=== PATIENT | female | born 1940 | race Caucasian/White ===

== ENCOUNTER 2024-03-10 11:36 | Outpatient (REF) | payer MEDICARE, SELFPAY ==
[2024-03-11 16:17] LABS: Estimated Average Glucose 126 mg/dL
== END 2024-03-10 11:37 | disposition home or self-care (01) ==
LOC: LAB 11:36
PROVIDERS: PCP Family Medicine; Visit Provider Nurse Practitioner Adult Health
DX: R73.09 Other abnormal glucose (principal)
CPT/HCPCS: 36415; 83036

== ENCOUNTER 2024-04-08 10:09 | Outpatient (REF) | payer MEDICARE, SELFPAY ==
[2024-04-08 11:27] LABS: Estimated GFR (African America 39 (>=60 mL/min/1.73m^2); Estimated GFR (Non-African Ame 32 (>=60 mL/min/1.73m^2)
== END 2024-04-08 10:10 | disposition home or self-care (01) ==
LOC: LAB 10:09
PROVIDERS: PCP Family Medicine; Visit Provider Nurse Practitioner Adult Health
DX: R94.4 Abnormal results of kidney function studies (principal)
CPT/HCPCS: 36415; 82565; 84520

== ENCOUNTER 2024-05-27 07:02 | Outpatient (REF) | payer MEDICARE, SELFPAY ==
--- OUTSIDE RECORDS SUMMARY | 2024-05-27 07:05 | XMS_ITS | CCD ---
Author Organization [facility] Care Team Providers Care Family [employer] Consumer [employer] Teacher Name Role Phone JOE, BETTE Unavailable Unavailable JOE, BETTE Unavailable Unavailable Joe, Bette Unavailable Bam Garcia Unavailable MD Bette Diaz Primary Care Provider [phone] MD Bette Diaz Attending Provider Sil Oneill Unavailable OCTAVIO Oneill Attending Provider MD Sondra Boswell Primary Care Provider MD Bette Diaz Attending Provider MD Sondra Boswell Primary Care Provider DO Eliot Moctezuma Emergency Provider MD Magali Galindo Admit Provider [phone] MD Magali Galindo Attending Provider MD Sondra Boswell Primary Care Provider MD Bette Diaz Attending Provider DO Eliot [place] Emergency Provider MD Magali Galindo Admit Provider MD Bette Diaz Other Provider DO Abundio Sauer Attending Provider DO Abundio Sauer Referring Provider [phone] Sondra Nettles Primary Care Pr ovider MD Bette Diaz Attending Provider [phone] MD Bette Diaz Attending Provider Sondra Boswell MD Primary Care Provider Sondra Boswell MD Unavailable [phone] Joe, Bette Admitting Unavailable Joe, Bette Attending Unavailable Sondra Calix Primary Care Un available WasMagali gunn Admitting Unavailable Joe, Bette Consulting Unavailable Abundio Sauer Attending Unavailabl e Joe, Bette Admitting Unavailable Joe, Bette Attending Unavailable Joe, Bette Admitting Unavailable Joe, Bette Attending Unavailable Oneill, Sil Admitting Unavailable Nino, Sil Attending Unavailable Sondra Calix Primary Care Un available Joe, Bette Admitting Unavailable Joe, Bette Attending Unavailable Abundio Sauer Referring Unavailabl e Sondra Calix Primary Care Un available Joe, Bette Admitting Unavailable Joe, Bette Attending Unavailable Sondra Calix Primary Care Un available SONDRA BOSWELL Attending Unavailable ESTRELLITA FISCHER Attending Unavailab DAKOTA Cook Attending Unavailab blanca FISCHER, ESTRELLITA Scherer Attending Unavailab ESTRELLITA Torres Attending Unavailab MD Sondra Patel Primary Care Pr ovider MD Bette Diaz Attending Provider Shannon DO, Stone S Primary Care Provider FABRICIO DICKSON Attending Unavailable SONDRA BOSWELL Referring Unavailable SHANNON, STONE S Primary Care Unavailable PHYSICIAN, UNKNOWN Referring Unavailable SHANNON, STONE S Primary Care Unavailable KELLE LEON Attending Unavailable KELLE LEON Referring Unavailable SHANNON, STONE S Primary Care Unavailable SARAN, KIET Referring Unavailable SHANNON, STONE S Primary Care Unavailable FABRICIO DICKSON Attending Unavailable FABRICIO DICKSON Referring Unavailable STONE ORTEGA S Primary Care Unavailable KELLE LEON Attending Unavailable FABRICIO DICKSON Referring Unavailable STONE ORTEGA S Primary Care Unavailable Allergies Allergy Classification Reported Allergen(s) Allergy Type Date of Onset Reaction(s) Facility [facility] (1 source) [facility] Substance Allergy 4 Itching [facility] Penicillins (antibiotic) (1 source) Penicillins Drug Allergy 4 [facility] (1 source) Iodine (And Iodine Containting Drugs) Drug allergy (disorder) 7 [facility] (9 sources) Penicillins; Translations: [PENICILLINS] Drug allergy (disorder) 7 [facility] (20 sources) Allopurinol; Translations: [ALL[facility]URINOL] [facility] Contrast media Propensity to adverse reactions [facility] [employer] Other (20 sources) Penicillins (Antibiotic) Propensity to adverse reactions Unknown [facility] [employer] Other (15 sources) Latex; Translations: [latex] Allergy to substance 2 Itching [facility] (8 sources) Gadolinium-Cont aining Contrast Medi; Translations: [Gadolinium-Con taining Contrast Medi] Allergy to substance 3 [facility] (16 sources) Iodinated Contrast Media; Translations: [Iodinated Contrast Media] Allergy to substance 7 [facility] (2 sources) Penicillin G Drug Allergy 3 [facility] (1 source) Allopurinol Drug Allergy 4 [facility] (1 source) Penicillins Drug allergy (disorder) 4 [facility] (6 sources) Contrast media; Translations: [DYE] Propensity to adverse reactions to drug 7 [facility] (4 sources) Penicillins Propensity to adverse reactions to drug 7 [facility] Medications Current Medications Medication Drug Class(es) Dates Sig (Normalized) Sig (Original) acetaminophen 500 mg oral tablet (6 sources) take 1 tablet by mouth once daily as needed for pain acetaminophen (TYLENOL) 500 mg tablet Take 1 tablet (500 mg total) by mouth nightly as needed for pain. Active atorvastatin 20 mg oral tablet (20 sources) HMG-CoA Reductase Inhibitor Start: 02-15-2023 End: 08-13-2023 take 20 mg by mouth once daily Atorvastatin Active 20 MG PO Daily May 03, 2023 12:00am bumetanide 2 mg oral tablet (14 sources) Loop Diuretic Start: 05-20-2023 bumetanide (Bumex) 2 MG tablet Start: 05-03-2023 End: 05-06-2023 take 1 tablet by mouth twice daily Bumetanide (Bumex) 1 mg Tablet Discontinued 1 MG PO Twice daily May 03, 2023 12:00am May 06, 2023 1:41pm Start: 04-25-2023 End: 04-10-2024 take 1 tablet by mouth twice daily before mealtime bumetanide (BUMEX) 2 mg tablet Take 1 tablet (2 mg total) by mouth 2 (two) times a day before meals. 60 tablet 2 04/25/2023 04/10/2024 Discontinued take 2 tablets by mo [facility] every twenty-four hours Bumetanide 2 MG 2 tablet Orally Daily Active Calcium 600+D3 600-800 MG-UNIT (20 sources) take 600-800 tablets by mouth twice daily Calcium 600+D3 600-800 MG-UNIT 1 tablet Orally Twice a day Active calcium carbonate 1250 mg / cholecalciferol 200 unt oral tablet (4 sources) Vitamin D take 1 tablet by mouth in the morning, then take 1 tablet by mouth once daily, then take 1 tablet by mouth once at mealtime calcium carbonate-vitamin D3 (OSCAL 500 + D) 500 mg(1,250mg) -200 units per tablet Take 1 tablet by mouth in the morning and 1 tablet at noon and 1 tablet in the evening. Take with meals. Active Calcium Carbonate-Vit D-Min (Calcium 600+D3 Plus Minerals) 600-800 MG-UNIT tablet (2 sources) take 600-800 tablets by mouth once in the morning Calcium Carbonate-Vit D-Min (Calcium 600+D3 Plus Minerals) 600-800 MG-UNIT tablet Take 1 tablet by mouth in the morning and at noon. 0 Active Calcium Carbonate-Vitamin D2 (6 sources) Start: 05-03-2023 take 1 tablet by mouth three times daily Calcium Carbonate-Vitamin D2 Active TAB PO Three times daily May 03, 2023 12:00am Start: 05-03-2023 take 1 tablet by connie th three times daily Calcium Carbonate-Vitamin D2 Active TAB PO Three times daily May 02, 2023 11:00pm Calcium Carbonate-Vitamin D2 (Calcium + Vitamin D) 600 mg calcium- 200 unit Tablet (1 source) Start: 05-03-2023 take 1 tablet by mouth three times daily Calcium Carbonate-Vitamin D2 (Calcium + Vitamin D) 600 mg calcium- 200 unit Tablet Active TAB PO Three times daily May 03, 2023 12:00am chlorpheniramine maleate 4 mg oral tablet (14 sources) Histamine-1 Receptor Antagonist take 1 tablet by mouth every six hours Allergy 4 MG 1 tablet as needed Orally every 6 hrs Active empagliflozin 10 mg oral tablet (20 sources) Sodium-Glucose Cotransporter 2 Inhibitor Start: 05-03-2023 take 1 tablet by mouth once daily Empagliflozin (Jardiance) 10 mg Tablet Active 10 MG PO Daily May 03, 2023 12:00am febuxostat 80 mg oral tablet (20 sources) Xanthine Oxidase Inhibitor Start: 05-03-2023 End: 08-14-2023 take 1 tablet by mouth once daily Febuxostat (Uloric) 80 mg Tablet Active 80 MG PO Daily May 03, 2023 12:00am take 2 tablets by mouth in the m orning febuxostat (ULORIC) 40 mg tablet Take 2 tablets (80 mg total) by mouth in the morning. Active ferrous sulfate 325 mg oral tablet (20 sources) Start: 09-18-2023 End: 05-21-2024 take 1 tablet by mouth once daily Ferrous Sulfate (Iron) 325 mg (65 mg iron) tablet Active 325 MG PO Daily September 18, 2023 12:15pm Start: 05-03-2023 End: 09-18-2023 take 1 tablet by mouth once daily Ferrous Sulfate (Iron) 325 mg (65 mg iron) Tablet Discontinued MG PO Daily May 03, 2023 12:00am September 18, 2023 12:18pm Iron (5 sources) take 1 tablet by mouth once daily Iron 325 (65 Fe) MG 1 tablet Orally Once a day Active melatonin 1 mg oral tablet (20 sources) Start: 05-03-2023 take 1 mg by mouth once daily at bedtime Melatonin Active MG PO Daily at bedtime May 03, 2023 12:00am take 1 tablet by mouth once katya y melatonin 10 mg tablet Take 10 mg by mouth nightly. Active take 1 tablet by mouth once kennedi tonin 5 MG tablet Take 1 tablet by mouth 1 (one) time if needed (insomnia). 0 Active take 2 tablets by mo [facility] once daily at bedtime as needed Melatonin 3 MG 2 tablet at bedtime as needed Orally Once a day Active metoprolol tartrate 25 mg oral tablet (20 sources) beta-Adrenergic Chantelle Start: 05-06-2023 take 25 mg by mouth twice daily Metoprolol Tartrate Active 25 MG PO Twice daily September 18, 2023 12:13pm Start: 05-06-2023 End: 09-18-2023 take 1 dose by mouth twice daily Metoprolol Tartrate Discontinued 12.5 MG PO Twice daily May 06, 2023 12:00am September 18, 2023 12:18pm Further refills per PCP or nephrology. Please cut the pills for the patient. Start: 05-03-2023 End: 05-06-2023 take 50 mg by mouth twice daily Metoprolol Tartrate Di scontinued 50 MG PO Twice daily May 03, 2023 12:00am May 06, 2023 1:41pm take 1 tablet by connie every twelve hours Metoprolol Tartrate 50 MG 1 tablet with food Orally Twice a day Active Multi For Her - (20 sources) Multi For Her - Orally Active Multiple Vitamins-Minerals (Multi For Her) tablet (2 sources) take 1 tablet by mouth in the morning Multiple Vitamins-Minerals (Multi For Her) tablet Take 1 tablet by mouth in the morning. 0 Active Multivitamin preparation (7 sources) Start: 05-03-2023 take 1 tablet by mouth once daily Multivitamin Active 1 TAB PO Daily May 02, 2023 11:00pm Start: 05-03-2023 take 1 tablet by connie th once daily Multivitamin Active 1 TAB PO Daily May 03, 2023 12:00am omeprazole 20 mg delayed release oral capsule (20 sources) Proton Pump Inhibitor Start: 05-20-2023 End: 11-16-2023 take 1 capsule by mouth before mealtime omeprazole (PriLOSEC) [address] capsule Indications: Gastro-esophageal reflux disease without esophagitis Take 1 capsule (20 mg) by mouth in the morning. Take before meals. 90 capsule 1 05/20/2023 11/16/2023 Active Start: 05-03-2023 take 20 mg by mouth once daily Omeprazole Active 20 MG PO Daily May 03, 2023 12:00am Oxygen (4 sources) oxygen Inhale 2 L/min nightly. Active rOPINIRole 3 mg oral tablet (20 sources) Nonergot Dopamine Agonist Start: 05-03-2023 take 3 mg by mouth once daily at bedtime Ropinirole Active 3 MG PO Daily at bedtime May 03, 2023 12:00am administer 1-3 hours before bedtime take 3 tablets by mouth once jared ly rOPINIRole (REQUIP) 1 mg tablet Take 3 tablets (3 mg total) by mouth nightly. Active take 1 tablet by connie th in the morning, then take 1 tablet by mouth in the evening, then take 1 tablet by mouth at bedtime rOPINIRole (Requip) 1 MG tablet Take 1 m g by mouth in the morning and 1 mg in the evening and 1 mg before bedtime. 0 Active 0.25 mg, 0.5 mg dose 1.5 ml semaglutide 1.34 mg/ml pen injector (7 sources) Start: 02-24-2024 inject 0.25 mg by subcutaneous injection every week Semaglutide Active 0.25 MG SUBCUT every week February 24, 2024 12:00am for 4 weeks Rybelsus 7 MG 1 tablet at least 30 minutes before first food, beverage or other oral medicine of the day Orally Once a day Active SITagliptin 25 mg oral tablet (9 sources) Dipeptidyl Peptidase 4 Inhibitor take 1 tablet by mouth every twenty-four hours Januvia 25 MG 1 tablet Orally Once a day Active take 0.5 tablet by mouth once da pippa Januvia 50 MG 1/2 tablets Orally Once a day Active therapeutic multivitamin (THERAGRAN) tablet (4 sources) take 1 tablet by mouth in the morning therapeutic multivitamin (THERAGRAN) tablet Take 1 tablet by mouth in the morning. Active torsemide 100 mg oral tablet (20 sources) Loop Diuretic Start: 02-24-2024 take 100 mg by mouth once daily Torsemide Active 100 MG PO Daily February 24, 2024 12:00am Start: 09-18-2023 End: 02-24-2024 take 100 mg by mouth once daily Torsemide Discontinued 100 MG PO Daily 450 November 12, 2023 5:40pm February 24, 2024 11:40am Start: 05-06-2023 End: 09-18-2023 take 60 mg by mouth once daily Torsemide Discontinued 60 MG PO DAILY@0800 0 May 06, 2023 12:00am September 18, 2023 12:14pm take 5 tablets by mo [facility] every twenty-four hours Torsemide 20 MG 5 tablet Orally daily for 90 days Active take 3 tablets by mo [facility] in the morning torsemide (Demadex) 20 MG tablet Take 3 tablets by mouth in the morning. 0 Active take 4 tablets by mo [facility] every twenty-four hours Torsemide 20 MG 4 tablet Orally daily for 90 days Active take 2 tablets by mo [facility] every twenty-four hours Torsemide 20 MG 2 tablets Orally Once a day for 90 days Active Completed/Discontinued Medications Medication Drug Class(es) Dates Sig (Normalized) Sig (Original) Allergy Pill (7 sources) Start: 05-03-2023 End: 02-24-2024 Allergy Pill Discontinued PO Daily May 03, 2023 12:00am February 24, 2024 11:14am Start: 05-03-2023 Allergy Pill A ctive PO Daily May 02, 2023 11:00pm Start: 05-03-2023 Allergy Pill A ctive PO Daily May 03, 2023 12:00am cetirizine hydrochloride 10 mg oral tablet (10 sources) Histamine-1 Receptor Antagonist End: 05-21-2024 take 1 tablet by mouth in the morning cetirizine (ZyrTEC) 10 mg tablet Take 1 tablet (10 mg total) by mouth in the morning. 05/21/2024 Discontinued (Therapy completed) lisinopril 10 mg oral tablet (20 sources) Angiotensin Converting Enzyme Inhibitor Start: 04-25-2023 End: 04-10-2024 take 10 mg by mouth once daily Lisinopril Discontinued 10 MG PO Daily May 03, 2023 12:00am September 18, 2023 12:16pm take 1 tablet by mouth in the mo rning lisinopril 40 MG tablet Take 1 tablet by mouth in the morning. 0 Active metOLazone 5 mg oral tablet (7 sources) Thiazide-like Diuretic Start: 09-18-2023 End: 02-24-2024 take 5 mg by mouth once daily Metolazone Discontinued 5 MG PO Daily September 18, 2023 12:00am February 24, 2024 11:17am take 1 tablet by conine every twenty-four hours metOLazone 5 MG 1 tablet Orally Once a day for 90 days Active potassium chloride 10 meq extended release oral tablet (20 sources) Start: 09-18-2023 End: 02-24-2024 take 20 mEq by mouth twice daily Potassium Chloride Discontinued 20 MEQ PO Twice daily September 18, 2023 12:16pm February 24, 2024 11:18am Start: 07-10-2022 End: 04-10-2024 take 10 mEq by mouth once daily Potassium Chloride Dis continued 10 MEQ PO Daily May 03, 2023 12:00am September 18, 2023 12:18pm take 2 tablets by mo [facility] every twelve hours Potassium Chloride ER 10 MEQ 2 tablet with food Orally Twice a day for 90 days Active Problems Active Problems Problem Classification Problem Date Documented Date Episodic/Chronic Acute and unspecified renal failure (17 sources) Acute renal failure syndrome; Translations: [Acute kidney failure, unspecified] Onset: 3 05-03-2023 Episodic Anxiety disorders (20 sources) Claustrophobia; Translations: [Claustrophobia] Onset: 1 Resolved: 1 Chronic Chronic kidney disease (20 sources) Chronic kidney disease stage 3; Translations: [Chronic kidney disease, stage 3 (moderate)] Onset: 3 05-06-2023 Chronic Chronic kidney disease (20 sources) Chronic kidney disease; Translations: [Chronic kidney disease, stage III (moderate) N18.30] Onset: 1 Resolved: 2 Chronic ulcer of skin (4 sources) Ulcer of lower extremity; Translations: [Non-pressure chronic ulcer of unspecified part of left lower leg limited to breakdown of skin] Onset: 0 06-29-2020 Chronic Congestive heart failure; nonhypertensive (20 sources) Chronic systolic heart failure; Translations: [Chronic systolic (congestive) heart failure] Onset: 3 Resolved: 4 Chronic Deficiency and other anemia (20 sources) Anemia in chronic kidney disease; Translations: [Anemia in chronic kidney disease] Chronic Deficiency and other anemia (5 sources) Anemia in chronic kidney disease; Translations: [Anemia in chronic kidney disease D63.1] Onset: 1 Resolved: 2 Chronic Deficiency and other anemia (6 sources) Anemia of chronic disease; Translations: [Anemia in other chronic diseases classified elsewhere] Onset: 3 08-01-2023 Chronic Diabetes mellitus with complications (20 sources) Type 2 diabetes mellitus; Translations: [Type 2 diabetes mellitus with diabetic chronic kidney disease] Onset: 7 Resolved: 2 Chronic Diabetes mellitus without complication (1 source) Diabetes mellitus without complication; Translations: [Type 2 diabetes mellitus with diabetic chronic kidney disease] Onset: 4 Disorders of lipid metabolism (18 sources) Hyperlipidemia; Translations: [Hyperlipidemia, unspecified] Onset: 5 05-04-2023 Chronic Esophageal disorders (2 sources) Gastroesophageal reflux disease without esophagitis; Translations: [Gastro-esophageal reflux disease without esophagitis] Onset: 3 11-23-2022 Chronic Essential hypertension (11 sources) Essential hypertension; Translations: [Essential (primary) hypertension] Onset: 7 11-23-2022 Chronic Fluid and electrolyte disorders (12 sources) Hyperkalemia; Translations: [Hypervolemia] Onset: 1 Resolved: 2 Episodic Gout and other crystal arthropathies (20 sources) Gout; Translations: [Gout, unspecified] Onset: 1 Resolved: 2 Chronic Hypertension with complications and secondary hypertension (20 sources) Hypertensive renal disease; Translations: [Hypertensive chronic kidney disease with stage 1 through stage 4 chronic kidney disease, or unspecified chronic kidney disease] Onset: 7 Resolved: 2 Chronic Miscellaneous mental health disorders (2 sources) Primary insomnia; Translations: [Primary insomnia] Onset: 3 11-23-2022 Chronic Nutritional deficiencies (8 sources) Iron deficiency; Translations: [Iron deficiency] Onset: 4 Episodic Osteoarthritis (2 sources) Osteoarthritis of knee; Translations: [Osteoarthritis of knee, unspecified] Onset: 3 11-23-2022 Chronic Other and ill-defined heart disease (6 sources) Diastolic dysfunction; Translations: [Other ill-defined heart diseases] Onset: 3 08-01-2023 Chronic Other connective tissue disease (2 sources) Artificial knee joint present; Translations: [Presence of unspecified artificial knee joint] Onset: 3 11-23-2022 Chronic Other diseases of kidney and ureters (20 sources) Hyperparathyroidism due to renal insufficiency; Translations: [Secondary hyperparathyroidism of renal origin] Onset: 3 11-23-2022 Chronic Other diseases of kidney and ureters (10 sources) Secondary hyperparathyroidism of renal origin; Translations: [Secondary hyperparathyroidism (of renal origin)] Onset: 1 Resolved: 2 Chronic Other diseases of kidney and ureters (3 sources) Secondary hyperparathyroidism; Translations: [Secondary hyperparathyroidism of renal origin] 09-18-2023 Chronic Other diseases of veins and lymphatics (7 sources) Lymphedema; Translations: [Lymphedema, not elsewhere classified] Onset: 0 11-23-2022 Chronic Other diseases of veins and lymphatics (1 source) Lymphedema, not elsewhere classified; Translations: [Lymphedema, not elsewhere classified] Onset: 3 Chronic Other hereditary and degenerative nervous system conditions (2 sources) Restless legs; Translations: [Restless legs syndrome] Onset: 3 11-23-2022 Chronic Other liver diseases (1 source) Elevated liver enzymes level; Translations: [Abnormal levels of other serum enzymes] 04-20-2024 Episodic Other lower respiratory disease (8 sources) Dyspnea; Translations: [Shortness of breath] Onset: 7 04-10-2024 Episodic Other nervous system disorders (2 sources) Chronic pain; Translations: [Other chronic pain] Onset: 3 11-23-2022 Chronic Other nutritional; endocrine; and metabolic disorders (20 sources) Body mass index 40+ - severely obese; Translations: [Body mass index (BMI) 50.0-59.9, adult] Onset: 1 04-10-2024 Chronic Other nutritional; endocrine; and metabolic disorders (2 sources) Body mass index (BMI) 50.0-59.9, adult; Translations: [Body mass index (BMI) 50.0-59.9, adult] Onset: 1 Resolved: 1 Chronic Other nutritional; endocrine; and metabolic disorders (2 sources) Morbid obesity; Translations: [Morbid (severe) obesity due to excess calories] Onset: 3 11-23-2022 Chronic Other screening for suspected conditions (not mental disorders or infectious disease) (9 sources) Raised cardiac enzyme or marker; Translations: [Other specified abnormal findings of blood chemistry] 05-03-2023 Episodic Other skin disorders (1 source) Localized swelling, mass and lump, unspecified; Translations: [Localized swelling, mass and lump, unspecified] Onset: 4 Episodic Rosita-; endo-; and myocarditis; cardiomyopathy (except that caused by tuberculosis or sexually transmitted disease) (4 sources) Heart valve disorder; Translations: [Endocarditis, valve unspecified] Onset: 4 05-21-2024 Chronic Pulmonary heart disease (11 sources) Pulmonary hypertension, unspecified; Translations: [Other chronic pulmonary heart diseases] Onset: 3 08-01-2023 Chronic Residual codes; unclassified (20 sources) Obstructive sleep apnea syndrome; Translations: [Obstructive sleep apnea (adult) (pediatric)] Onset: 7 05-06-2023 Chronic Residual codes; unclassified (20 sources) Sleep apnea; Translations: [Sleep apnea, unspecified] Onset: 4 Chronic Residual codes; unclassified (6 sources) Obstructive sleep apnea (adult) (pediatric); Translations: [Obstructive sleep apnea (adult)(pediatric)] Onset: 1 Resolved: 2 Chronic Residual codes; unclassified (4 sources) Idiopathic sleep related nonobstructive alveolar hypoventilation; Translations: [Idiopathic sleep related non-obstructive alveolar hypoventilation] Onset: 1 Resolved: 2 Chronic Residual codes; unclassified (1 source) Obstructive sleep apnea (adult)(pediatric); Translations: [Obstructive sleep apnea (adult) (pediatric)] Onset: 3 Chronic Residual codes; unclassified (1 source) Idiopathic sleep related non-obstructive alveolar hypoventilation; Translations: [Idiopathic sleep related nonobstructive alveolar hypoventilation] 01-21-2024 Chronic Residual codes; unclassified (9 sources) Localized edema; Translations: [Edema leg R60.0] Onset: 1 Resolved: 2 Episodic Residual codes; unclassified (1 source) Edema, unspecified; Translations: [Edema] 02-24-2024 Episodic Unclassified (1 source) New Patient Onset: 4 Viral infection (3 sources) Herpes zoster; Translations: [Zoster without complications] 09-18-2023 Episodic Past or Other Problems Problem Classification Problem Date Documented Da te Episodic/Chronic Headache; including migraine (2 sources) Headache disorder; Translations: [Other headache syndrome] Onset: 11-23-2022 11-23-2022 Episodic Neoplasms of unspecified nature or uncertain behavior (2 sources) Myelodysplastic syndrome (clinical); Translations: [Myelodysplastic syndrome, unspecified] Onset: 08-05-2015 02-25-2023 Episodic Other connective tissue disease (2 sources) Recurrent falls ; Translations: [Repeated falls] Onset: 11-23-2022 11-23-2022 Episodic Other gastrointestinal disorders (2 sources) Slow transit constipation; Translations: [Slow transit constipation] Onset: 11-23-2022 Resolved: 08-01-2023 08-01-2023 Episodic Other lower respiratory disease (2 sources) Shortness of breath; Translations: [Shortness of breath] Onset: 02-27-2022 Episodic Residual codes; unclassified (2 sources) Localized edema; Translations: [Localized edema] Onset: 11-23-2022 11-23-2022 Episodic Residual codes; unclassified (7 sources) Edema; Translations: [Edema, unspecified] Onset: 01-25-2017 Resolved: 05-22-2021 09-18-2023 Episodic Spondylosis; intervertebral disc disorders; other back problems (6 sources) Spinal stenosis of lumbar region; Translations: [Spinal stenosis, lumbar region without neurogenic claudication] Onset: 08-24-2016 02-25-2023 Episodic Unclassified (6 sources) Body mass index 40+ - severely obese; Translations: [Body mass index (BMI) greater than 50] 05-06-2023 Results Test Name Value Interpretation Reference Range Facility CT ABDOMEN AND PELVIS WO CON Ton 04-22-2024 CT ABDOMEN AND PELVIS WO CONT CT ABDOMEN AND PELVIS WO CONT CT ABDOMEN AND PELVIS WO CONT HISTORY: Localized mass overlying the left ribs, fall 3 weeks ago COMPARISON: None TECHNIQUE: CT images of abdomen and pelvis obtained without the administration of contrast. Lack of IV contrast limits evaluation, especially solid organs. Automated exposure control was utilized. All CT scans at this facility use dose modulation, iterative reconstruction, and/or weight based dosing when appropriate to reduce radiation dose to as low as reasonably achievable. FINDINGS: Suboptimal evaluation of the solid organs, vessels, and lymph nodes in the absence of IV contrast. LOWER CHEST: Lung bases are clear. Refer to separately dictated CT chest. LIVER AND BILIARY: Lobulated hypoattenuating lesion within the right hepatic lobe which measures less than simple fluid is indeterminate. Somewhat nodular hepatic contour (particularly involving the right hepatic lobe, nonspecific. ) Surgically absent gallbladder with clips in the gallbladder fossa. PANCREAS: Unremarkable SPLEEN: Unremarkable ADRENALS: Unremarkable KIDNEYS, URETERS, AND BLADDER: No renal mass or lesion given noncontrast technique. No collecting system dilatation. No renal calculi.. Ureters are unremarkable. Suboptimal assessment of bladder given the degree of distention.. GI TRACT AND PERITONEUM: Surgically absent appendix. Terminal ileum is unremarkable appearing. There is no evidence of bowel obstruction. No pericolonic fat stranding or free intraperitoneal gas. Small hiatal hernia. VASCULATURE: Unremarkable given noncontrast technique. LYMPH NODES: No enlarged lymph nodes by size criteria. REPRODUCTIVE ORGANS: Unremarkable MUSCULOSKELETAL: lumbar fusion hardware without acute abnormality. IMPRESSION: * There is no definite mass/lesion underlying the BB corresponding to site of palpable concern with small possible subcutaneous region of edema or contusion suggested.. * Lobulated hypoattenuating lesion in the right hepatic lobe with some degree of fat attenuation. This remains indeterminate given superimposed nodular hepatic contour (suspicious for underlying diffuse hepatocellular disease). Recommend clinical and laboratory correlation with consideration for follow-up MR abdomen with and without contrast for further characterization. Approved by Resident Mata Jackson DO on 04/22/2024 10:11 AM IAnish MD have personally reviewed the image(s) and agree with and/or edited the report Finalized by Anish Mercado MD on 04/22/2024 10:24 AM Normal [facility] CT CHEST WO CONTon CT CHEST WO CONT CT CHEST WO CONT History: Left chest wall mass after trauma Technique: Contiguous axial images through the thorax were obtained without the administration of intravenous contrast material. The study was performed following placement of an opaque marker over the palpable lump in the left chest wall. Automated exposure control was utilized. Computer aided detection for pulmonary nodules was performed utilizing [employer] software. Comparison: None Findings: There is mild induration of the subcutaneous fat in the area of palpable lump described clinically most like representing soft tissue contusion. No cystic or solid masses are identified. No abnormal fluid collections are seen. There is no evidence for an acute osseous abnormality. No associated rib fractures are seen. No hilar or mediastinal masses or adenopathy are seen. Coronary artery calcic lesions are noted. The lung buchanan are clear for an active process. No pleural or parenchymal abnormalities are identified. Limited images of the upper abdomen are unremarkable. A hypodense lesion within the posterior aspect of the right lobe of liver cannot be fully evaluated without intravenous contrast, however has densities consistent that of a hepatic cyst. Impression: * Minimal induration of the subcutaneous fat in the area of palpable lump in the left lateral chest wall, demarcated by an opaque marker. This is most consistent with minimal soft tissue contusion. No hematomas or soft tissue masses are identified. * Otherwise normal CT thorax. All CT scans at this facility use dose modulation, iterative reconstruction, and/or weight based dosing when appropriate to reduce radiation dose to as low as reasonably achievable. Finalized by Bam Damon MD on 04/22/2024 11:49 AM Normal [facility] COMPLETE BLOOD COUNTon 04-16 Erythrocyte distribution width (RBC) [Ratio] 14.7 % Normal 11.5-15.0 [facility] Comment on above: Performed By: #### C BC, CMP, 29668-6 #### [facility] ([id number]) [address], [address] [place] [address] Hematocrit (Bld) [Volume fraction] 38.0 % Normal 35-47 [facility] Comment on above: Performed By: #### Wesley CRAWFORD, CMP, 58135-3 #### [facility] ([id number]) [address], [address] [place] [address] Hemoglobin (Bld) [Mass/Vol] 12.7 g/dL Normal 11.7-15.5 [facility] Comment on above: Performed By: #### Wesley CRAWFORD CMP, 39135-3 #### [facility] ([id number]) [address], [address] [place] [address] MCH (RBC) [Entitic mass] 32.7 pg Normal 27-34 [facility] Comment on above: Performed By: #### Wesley CRAWFORD CMP, 19826-9 #### [facility] ([id number]) [address], [address] [place] [address] MCHC (RBC) [Mass/Vol] 33.5 g/dL Normal 32-36 [facility] Comment on above: Performed By: #### Wesley CRAWFORD CMP, 95473-7 #### [facility] ([id number]) [address], [address] [place] [address] MCV (RBC) [Entitic vol] 98 fL Normal 80-100 [facility] Comment on above: Performed By: #### Wesley CRAWFORD, CMP, 93262-5 #### [facility] ([id number]) [address] [address] [place] [address] Platelet mean volume (Bld) [Entitic vol] 9.0 fL Normal 7-12 [facility] Comment on above: Performed By: #### Wesley CRAWFORD CMP, 71556-8 #### [facility] ([id number]) [address], [address] [place] [address] Platelets (Bld) [#/Vol] 231 10*3/uL Normal 150-450 [facility] Comment on above: Performed By: #### Wesley CRAWFORD, CMP, 38282-9 #### [facility] ([id number]) [address], [address] [place] [address] RBC COUNT 3.90 X10E12/L Normal 3.80-5.20 [facility] Comment on above: Performed By: #### Wesley CRAWFORD, CMP, 16433-0 #### [facility] ([id number]) [address], [facility] [address] [place] [address] WBC (Bld) [#/Vol] 7.1 10*3/uL Normal 4.0-11.0 [facility] Comment on above: Performed By: #### Wesley CRAWFORD CMP, 20443-6 #### [facility] ([id number]) [address], [address] [place] [address] COMPREHENSIVE METABOLIC PANE Yuan 04-16-2024 Albumin [Mass/Vol] 3.8 g/dL Normal 3.2-5.3 [facility] Comment on above: Performed By: #### Wesley CRAWFORD, CMP, 08341-3 #### [facility] ([id number]) [address], [address] [place] [address] ALP [Catalytic activity/Vol] 279 U/L High 39-130 [facility] Comment on above: Performed By: #### Wesley CRAWFORD, CMP, 61565-0 #### [facility] ([id number]) [address], [address] [place] [address] ALT [Catalytic activity/Vol] 28 U/L Normal 0-31 [facility] Comment on above: Performed By: #### Wesley BC, CMP, 90172-8 #### [facility] ([id number]) [address], [address] [place] [address] Anion gap [Moles/Vol] 12 mmol/L Normal 5-15 [facility] Comment on above: Performed By: #### Wesley CRAWFORD CMP, 56138-4 #### [facility] ([id number]) [address], [address] [place] [address] AST [Catalytic activity/Vol] 24 U/L Normal 0-41 [facility] Comment on above: Performed By: #### Wesley CRAWFORD CMP, 30697-9 #### [facility] ([id number]) [address], [address] [place] [address] Bilirubin [Mass/Vol] 0.9 mg/dL Normal 0.3-1.2 [facility] Comment on above: Performed By: #### Wesley CRAWFORD CMP, 59575-5 #### [facility] ([id number]) [address], [address] [place] [address] Calcium [Mass/Vol] 9.2 mg/dL Normal 8.5-10.5 [facility] Comment on above: Performed By: #### Wesley CRAWFORD CMP, 01298-6 #### [facility] ([id number]) [address], [address] [place] [address] Chloride [Moles/Vol] 100 mmol/L Normal 98-109 [facility] Comment on above: Performed By: #### Wesley CRAWFORD CMP, 77003-2 #### [facility] ([id number]) [address], [address] [place] [address] CO2 [Moles/Vol] 26 mmol/L Normal 22-32 [facility] Comment on above: Performed By: #### Wesley CRAWFORD CMP, 60338-8 #### [facility] ([id number]) [address], [address] [place] [address] Creatinine [Mass/Vol] 1.53 mg/dL High 0.40-1.00 [facility] Comment on above: Result Comment: METH OD TRACEABLE TO IDMS STANDARD Performed By: #### Wesley CRAWFORD CMP, 50993-4 #### [facility] ([id number]) [address], [address] [place] [address] GFR/1.73 sq M.predicted among non-blacks MDRD (S/P/Bld) [Vol rate/Area] 34 mL/min/{1.73_m2} Low >59 [facility] Comment on above: Result Comment: Reported eGFR is based on the CKD-EPI 2020 equation that does not use a race coefficient. Performed By: #### Wesley CRAWFORD CMP, 33338-0 #### [facility] ([id number]) [address], [address] [place] [address] Glucose [Mass/Vol] 155 mg/dL High 65-99 [facility] Comment on above: Performed By: #### Wesley CRAWFORD CMP, 64923-1 #### [facility] ([id number]) [address], [address] [place] [address] Potassium [Moles/Vol] 3.5 mmol/L Normal 3.5-5.0 [facility] Comment on above: Performed By: #### Wesley CRAWFORD CMP, 29863-6 #### [facility] ([id number]) [address], [address] [place] [address] Protein [Mass/Vol] 7.3 g/dL Normal 6.0-8.0 [facility] Comment on above: Performed By: #### Wesley CRAWFORD CMP, 30812-7 #### [facility] ([id number]) [address] [address] [place] [address] Sodium [Moles/Vol] 138 mmol/L Normal 134-146 [facility] Comment on above: Performed By: #### Wesley CRAWFORD CMP, 80581-2 #### [facility] ([id number]) [address], [address] [place] [address] Urea nitrogen [Mass/Vol] 30 mg/dL High 5-27 [facility] Comment on above: Performed By: #### Wesley CRAWFORD CMP, 70003-7 #### [facility] ([id number]) [address], [address] [place] [address] Lipid 1996 panelon 4 Cholesterol [Mass/Vol] 124 mg/dL Low 150-200 [facility] Comment on above: Performed By: #### Wesley CRAWFORD CMP, 98166-5 #### [facility] ([id number]) [address], [facility] [address] [place] [address] Cholesterol in HDL [Mass/Vol] 59 mg/dL Normal >39 [facility] Comment on above: Result Comment: HDL <40 mg/dL - High Risk HDL > or = 40mg/dL- Desirable HDL >60 mg/dL - Negative Risk Performed By: #### Wesley CRAWFORD, ALEXANDER, 39675-9 #### [facility] ([id number]) [address], [address] [place] [address] Cholesterol in LDL [Mass/Vol] 40 mg/dL Normal <130 [facility] Comment on above: Result Comment: LDL <100 mg/dL - Desirable LDL >160 mg/dL - High Risk Performed By: #### Wesley CRAWFORD, CMP, 37652-1 #### [facility] ([id number]) [address], [address] [place] [address] Cholesterol in VLDL [Mass/Vol] 25 mg/dL Normal 0-30 [facility] Comment on above: Performed By: #### Wesley CRAWFORD, CMP, 06180-0 #### [facility] ([id number]) [address], [address] [place] [address] CHOLESTEROL:HDL 2.1 Normal 1.0-5.0 [facility] Comment on above: Performed By: #### C BC, CMP, 51674-5 #### [facility] ([id number]) [address], [address] [place] [address] Triglyceride [Mass/Vol] 126 mg/dL Normal 27-150 [facility] Comment on above: Performed By: #### C BC, CMP, 24692-4 #### [facility] ([id number]) [address], [address] [place] [address] POCT EKGon 04-10-2024 [facility] Albumin [Mass/volume] in Ser um or Plasma by Bromocresol green (BCG) dye binding methoOrdered By: Bette Diaz on 01-14-2024 Albumin BCG dye [Mass/Vol] 3.7 g/dL 3.5-5.7 [facility] Calcium [Mass/volume] in Ser um or PlasmaOrdered By: Bette Diaz on 01-14-2024 Calcium [Mass/Vol] 8.7 mg/dL 8.6-10.3 [facility] Carbon dioxide, total [Moles /volume] in Serum or PlasmaOrdered By: Bette Diaz on 01-14-2024 CO2 [Moles/Vol] 28.2 mmol/L 21.0-31.0 [facility] Chloride [Moles/volume] in S ganesh or PlasmaOrdered By: Bette Diaz on 01-14-2024 Chloride [Moles/Vol] 102 mmol/L 98-107 [facility] Creatinine [Mass/volume] in Serum or PlasmaOrdered By: Bette Diaz on 01-14-2024 Creatinine [Mass/Vol] 1.63 mg/dL High 0.60-1.20 [facility] Erythrocyte distribution wid th Auto (RBC) [Ratio]Ordered By: Bette Diaz on 01-14-2024 Erythrocyte distribution width (RBC) [Ratio] 14.7 % 11.9-15.3 [facility] Glucose [Mass/volume] in Ser um or PlasmaOrdered By: Bette Diaz on 01-14-2024 Glucose [Mass/Vol] 125 mg/dL High 70-100 [facility] Comment on above: ADA recommended refe rence rangeRandom Glucose Reference Range is dependent on time and content of last meal. Glucose of more than 200 mg/dL in a nonstressed, ambulatory subject supports the diagnosis of Diabetes Mellitus. Hematocrit Auto (Bld) [Volum e fraction]Ordered By: Bette Diaz on 01-14-2024 Hematocrit (Bld) [Volume fraction] 33.9 % Low 34.0-46.4 [facility] Hemoglobin [Mass/volume] in BloodOrdered By: Bette Diaz on 01-14-2024 Hemoglobin (Bld) [Mass/Vol] 11.4 g/dL Low 11.8-15.4 [facility] Leukocytes [#/volume] correc lana for nucleated erythrocytes in Blood by Automated counOrdered By: Bette Diaz on 01-14-2024 WBC corrected for nucl RBC Auto (Bld) [#/Vol] 6.5 10*3/uL 3.8-11.6 [facility] MCH Auto (RBC) [Entitic mass ]Ordered By: Bette Diaz on 01-14-2024 MCH (RBC) [Entitic mass] 33.1 pg 24.7-34.3 [facility] MCHC Auto (RBC) [Mass/Vol]Or dered By: Bette Diaz on 01-14-2024 MCHC (RBC) [Mass/Vol] 33.6 g/dL 32.0-35.0 [facility] MCV Auto (RBC) [Entitic vol] Ordered By: Bette Diaz on 01-14-2024 MCV (RBC) [Entitic vol] 98.5 fL 80-100 [facility] Magnesium [Mass/volume] in S ganesh or PlasmaOrdered By: Bette Diaz on 01-14-2024 Magnesium [Mass/Vol] 2.0 mg/dL 1.9-2.7 [facility] No Panel InformationOrdered By: Bette Diaz on 01-14-2024 Estimated GFR (CKD-EPI) 31.295 mL/Min [facility] Creatinine Clearance (Chem N/A [facility] Parathyrin.intact [Mass/volu me] in Serum or PlasmaOrdered By: Bette Diaz on 01-14-2024 Parathyrin.intact [Mass/Vol] 237.4 pg/mL High 12-88 [facility] Phosphate [Mass/volume] in S ganesh or PlasmaOrdered By: Bette Diaz on 01-14-2024 Phosphate [Mass/Vol] 3.6 mg/dL 2.5-4.5 [facility] Platelet mean volume Auto (B ld) [Entitic vol]Ordered By: Bette Diaz on 01-14-2024 Platelet mean volume (Bld) [Entitic vol] 8.2 fL 6.3-10.7 [facility] Platelets Auto (Bld) [#/Vol] Ordered By: Bette Diaz on 01-14-2024 Platelets (Bld) [#/Vol] 227 10*3/uL 150-450 [facility] Potassium [Moles/volume] in Serum or PlasmaOrdered By: Bette Diaz on 01-14-2024 Potassium [Moles/Vol] 3.7 mmol/L 3.5-5.1 [facility] RBC Auto (Bld) [#/Vol]Ordere d By: Bette Diaz on 01-14-2024 RBC (Bld) [#/Vol] 3.44 10*6/uL Low 3.60-5.00 [facility] Serum or plasma anion gap de terminationOrdered By: Bette Diaz on 01-14-2024 Anion gap [Moles/Vol] 12.5 mmol/L 6.0-15.0 [facility] Sodium [Moles/volume] in Ser um or PlasmaOrdered By: Bette Diaz on 01-14-2024 Sodium [Moles/Vol] 139 mmol/L 136-145 [facility] Urate [Mass/volume] in Serum or PlasmaOrdered By: Bette Diaz on 01-14-2024 Urate [Mass/Vol] 7.2 mg/dL High 2.3-6.6 [facility] Urea nitrogen [Mass/volume] in Serum or PlasmaOrdered By: Bette Diaz on 01-14-2024 Urea nitrogen [Mass/Vol] 24 mg/dL 7-25 [facility] Vitamin D+Metabolites [Mass/ volume] in Serum or PlasmaOrdered By: Bette Diaz on 01-14-2024 Vitamin D+Metabolites [Mass/Vol] 38.4 ng/mL 30-100 [facility] Comment on above: VITAMIN D STATUS 25( [place])VITAMIN D RANGE (ng/mL) Deficient <20 Insufficient 20 to <30Sufficient 30 to 100Reference: Kristy MF,Sarah MOORE, Toshia CHRISTINE, et al. Evaluation,treatment, and prevention of vitamin D deficiency; an Endocrine Society clinical practice guideline. JCEM. 2010; 96(7):1911-30. Magnesiumon 09-11-2023 Magnesium [Mass/Vol] 2.3 mg/dL Normal 1.9-2.7 [facility] Comment on above: Order Comment: Reaso n for Exam Chronic kidney disease, stage III (moderate);Hypertensive ch Result Comment: PERF ORMED BY: [place] [address] PATHOLOGIST [employer] KELSY GROSS M.D. Performed By: #### H S TROP, CBC, BMP, BNP, PT, PTT #### [facility] [address] Renal Function Panelon 09-10 Albumin [Mass/Vol] 4.1 g/dL Normal 3.5-5.7 [facility] Comment on above: Order Comment: Reaso n for Exam Chronic kidney disease, stage III (moderate);Hypertensive ch Performed By: #### H S TROP, CBC, BMP, BNP, PT, PTT #### [facility] [address] [place], [place] [id number] [facility] Anion gap [Moles/Vol] 13.8 mmol/L Normal 6.0-15.0 [facility] Comment on above: Order Comment: Reaso n for Exam Chronic kidney disease, stage III (moderate);Hypertensive ch Performed By: #### H S TROP, CBC, BMP, BNP, PT, PTT #### [facility] [address] Calcium [Mass/Vol] 9.6 mg/dL Normal 8.6-10.3 [facility] Comment on above: Order Comment: Reaso n for Exam Chronic kidney disease, stage III (moderate);Hypertensive ch Performed By: #### H S TROP, CBC, BMP, BNP, PT, PTT #### [facility] [address] Chloride [Moles/Vol] 99 mmol/L Normal 98-107 [facility] Comment on above: Order Comment: Reaso n for Exam Chronic kidney disease, stage III (moderate);Hypertensive ch Performed By: #### H S TROP, CBC, BMP, BNP, PT, PTT #### [facility] [address] CO2 [Moles/Vol] 28.8 mmol/L Normal 21.0-31.0 [facility] Comment on above: Order Comment: Reaso n for Exam Chronic kidney disease, stage III (moderate);Hypertensive ch Performed By: #### H S TROP, CBC, BMP, BNP, PT, PTT #### [facility] [address] [place] [id number] [facility] Creatinine [Mass/Vol] 1.67 mg/dL High 0.60-1.20 [facility] Comment on above: Order Comment: Reaso n for Exam Chronic kidney disease, stage III (moderate);Hypertensive ch Performed By: #### H S TROP, CBC, BMP, BNP, PT, PTT #### [facility] [address] [place] [id number] [place] GFR/1.73 sq M.predicted MDRD (S/P/Bld) [Vol rate/Area] 30.399 mL/min/{1.73_m2} Normal [facility] Comment on above: Order Comment: Reaso n for Exam Chronic kidney disease, stage III (moderate);Hypertensive ch Performed By: #### H S TROP, CBC, BMP, BNP, PT, PTT #### [facility] [address] [place] [address] [place] Glucose [Mass/Vol] 188 mg/dL High 70-100 [facility] Comment on above: Order Comment: Reaso n for Exam Chronic kidney disease, stage III (moderate);Hypertensive ch Result Comment: [facility] Glucose Reference Range is dependent on time and content of last meal. Glucose of more than 200 mg/dL in a nonstressed, ambulatory subject supports the diagnosis of Diabetes Mellitus. ADA recommended reference range Performed By: #### H S TROP, CBC, BMP, BNP, PT, PTT #### [facility] [address] Phosphate [Mass/Vol] 4.0 mg/dL Normal 2.5-4.5 [facility] Comment on above: Order Comment: Reaso n for Exam Chronic kidney disease, stage III (moderate);Hypertensive ch Performed By: #### H S TROP, CBC, BMP, BNP, PT, PTT #### [facility] [address] Potassium [Moles/Vol] 3.6 mmol/L Normal 3.5-5.1 [facility] Comment on above: Order Comment: Reaso n for Exam Chronic kidney disease, stage III (moderate);Hypertensive ch Performed By: #### H S TROP, CBC, BMP, BNP, PT, PTT #### [facility] [address] [place] [address] [place] Sodium [Moles/Vol] 138 mmol/L Normal 136-145 [facility] Comment on above: Order Comment: Reaso n for Exam Chronic kidney disease, stage III (moderate);Hypertensive ch Performed By: #### H S TROP, CBC, BMP, BNP, PT, PTT #### [facility] [address] [place] [address] [place] Urea nitrogen [Mass/Vol] 81 mg/dL High 7-25 [facility] Comment on above: Order Comment: Reaso n for Exam Chronic kidney disease, stage III (moderate);Hypertensive ch Performed By: #### H S TROP, CBC, BMP, BNP, PT, PTT #### [facility] [address] Albumin [Mass/volume] in Ser um or Plasma by Bromocresol green (BCG) dye binding methoOrdered By: Bette Diaz on 08-12-2023 Albumin BCG dye [Mass/Vol] 4.2 g/dL 3.5-5.7 [facility] Calcium [Mass/volume] in Ser um or PlasmaOrdered By: Bette Diaz on 08-12-2023 Calcium [Mass/Vol] 9.5 mg/dL 8.6-10.3 [facility] Carbon dioxide, total [Moles /volume] in Serum or PlasmaOrdered By: Bette Diaz on 08-12-2023 CO2 [Moles/Vol] 27.1 mmol/L 21.0-31.0 [facility] Chloride [Moles/volume] in S ganesh or PlasmaOrdered By: Bette Diaz on 08-12-2023 Chloride [Moles/Vol] 98 mmol/L 98-107 [facility] Creatinine [Mass/volume] in Serum or PlasmaOrdered By: Bette Diaz on 08-12-2023 Creatinine [Mass/Vol] 1.76 mg/dL 0.60-1.20 [facility] Glucose [Mass/volume] in Ser um or PlasmaOrdered By: Bette Diaz on 08-12-2023 Glucose [Mass/Vol] 175 mg/dL 70-100 [facility] Comment on above: ADA recommended refe rence rangeRandom Glucose Reference Range is dependent on time and content of last meal. Glucose of more than 200 mg/dL in a nonstressed, ambulatory subject supports the diagnosis of Diabetes Mellitus. Magnesiumon 08-12-2023 Magnesium [Mass/Vol] 2.0 mg/dL Normal 1.9-2.7 [facility] Comment on above: Order Comment: Reaso n for Exam Chronic kidney disease, stage III (moderate);Hypertensive ch Result Comment: PERF ORMED BY: [facility] [address] [place] [address] PATHOLOGIST [employer] KELSY GROSS M.D. Performed By: #### H S TROP, CBC, BMP, BNP, PT, PTT #### [facility] [address] Magnesium [Mass/volume] in S ganesh or PlasmaOrdered By: Bette Diaz on 08-12-2023 Magnesium [Mass/Vol] 2.0 mg/dL 1.9-2.7 [facility] No Panel InformationOrdered By: Bette Diaz on 08-12-2023 Estimated GFR (CKD-EPI) 28.542 mL/Min [facility] Creatinine Clearance (Chem N/A [facility] Phosphate [Mass/volume] in S ganesh or PlasmaOrdered By: Bette Diaz on 08-12-2023 Phosphate [Mass/Vol] 4.0 mg/dL 2.5-4.5 [facility] Potassium [Moles/volume] in Serum or PlasmaOrdered By: Bette Diaz on 08-12-2023 Potassium [Moles/Vol] 3.5 mmol/L 3.5-5.1 [facility] Renal Function Panelon 08-12 Albumin [Mass/Vol] 4.2 g/dL Normal 3.5-5.7 [facility] Comment on above: Order Comment: Reaso n for Exam Chronic kidney disease, stage III (moderate);Hypertensive ch Performed By: #### H S TROP, CBC, BMP, BNP, PT, PTT #### [facility] [address] Anion gap [Moles/Vol] 17.4 mmol/L High 6.0-15.0 [facility] Comment on above: Order Comment: Reaso n for Exam Chronic kidney disease, stage III (moderate);Hypertensive ch Performed By: #### H S TROP, CBC, BMP, BNP, PT, PTT #### [facility] [address] Calcium [Mass/Vol] 9.5 mg/dL Normal 8.6-10.3 [facility] Comment on above: Order Comment: Reaso n for Exam Chronic kidney disease, stage III (moderate);Hypertensive ch Performed By: #### H S TROP, CBC, BMP, BNP, PT, PTT #### [facility] [address] [place] [id number] [place] Chloride [Moles/Vol] 98 mmol/L Normal 98-107 [facility] Comment on above: Order Comment: Reaso n for Exam Chronic kidney disease, stage III (moderate);Hypertensive ch Performed By: #### H S TROP, CBC, BMP, BNP, PT, PTT #### [facility] [address] [place] [id number] [place] CO2 [Moles/Vol] 27.1 mmol/L Normal 21.0-31.0 [facility] Comment on above: Order Comment: Reaso n for Exam Chronic kidney disease, stage III (moderate);Hypertensive ch Performed By: #### H S TROP, CBC, BMP, BNP, PT, PTT #### [facility] [address] [place] [address] [place] Creatinine [Mass/Vol] 1.76 mg/dL High 0.60-1.20 [facility] Comment on above: Order Comment: Reaso n for Exam Chronic kidney disease, stage III (moderate);Hypertensive ch Performed By: #### H S TROP, CBC, BMP, BNP, PT, PTT #### [facility] [address] [place] [id number] [place] GFR/1.73 sq M.predicted MDRD (S/P/Bld) [Vol rate/Area] 28.542 mL/min/{1.73_m2} Normal [facility] Comment on above: Order Comment: Reaso n for Exam Chronic kidney disease, stage III (moderate);Hypertensive ch Performed By: #### H S TROP, CBC, BMP, BNP, PT, PTT #### [facility] [address] [place] [id number] [place] Glucose [Mass/Vol] 175 mg/dL High 70-100 [facility] Comment on above: Order Comment: Reaso n for Exam Chronic kidney disease, stage III (moderate);Hypertensive ch Result Comment: [place] Glucose Reference Range is dependent on time and content of last meal. Glucose of more than 200 mg/dL in a nonstressed, ambulatory subject supports the diagnosis of Diabetes Mellitus. ADA recommended reference range Performed By: #### H S TROP, CBC, BMP, BNP, PT, PTT #### [facility] [address] Phosphate [Mass/Vol] 4.0 mg/dL Normal 2.5-4.5 [facility] Comment on above: Order Comment: Reaso n for Exam Chronic kidney disease, stage III (moderate);Hypertensive ch Performed By: #### H S TROP, CBC, BMP, BNP, PT, PTT #### [facility] [address] Potassium [Moles/Vol] 3.5 mmol/L Normal 3.5-5.1 [facility] Comment on above: Order Comment: Reaso n for Exam Chronic kidney disease, stage III (moderate);Hypertensive ch Performed By: #### H S TROP, CBC, BMP, BNP, PT, PTT #### [facility] [address] Sodium [Moles/Vol] 139 mmol/L Normal 136-145 [facility] Comment on above: Order Comment: Reaso n for Exam Chronic kidney disease, stage III (moderate);Hypertensive ch Performed By: #### H S TROP, CBC, BMP, BNP, PT, PTT #### [facility] [address] [place] [id number] [facility] Urea nitrogen [Mass/Vol] 43 mg/dL High 7-25 [facility] Comment on above: Order Comment: Reaso n for Exam Chronic kidney disease, stage III (moderate);Hypertensive ch Performed By: #### H S TROP, CBC, BMP, BNP, PT, PTT #### [facility] [address] [place] [address] Serum or plasma anion gap de terminationOrdered By: Bette Diaz on 08-12-2023 Anion gap [Moles/Vol] 17.4 mmol/L 6.0-15.0 [facility] Sodium [Moles/volume] in Ser um or PlasmaOrdered By: Bette Diaz on 08-12-2023 Sodium [Moles/Vol] 139 mmol/L 136-145 [facility] Urea nitrogen [Mass/volume] in Serum or PlasmaOrdered By: Bette Diaz on 08-12-2023 Urea nitrogen [Mass/Vol] 43 mg/dL 7-25 [facility] Albumin [Mass/volume] in Ser um or Plasma by Bromocresol green (BCG) dye binding methoOrdered By: Bette Diaz on 07-29-2023 Albumin BCG dye [Mass/Vol] 4.1 g/dL 3.5-5.7 [facility] Calcium [Mass/volume] in Ser um or PlasmaOrdered By: Bette Diaz on 07-29-2023 Calcium [Mass/Vol] 8.9 mg/dL 8.6-10.3 [facility] Carbon dioxide, total [Moles /volume] in Serum or PlasmaOrdered By: Bette Diaz on 07-29-2023 CO2 [Moles/Vol] 28.6 mmol/L 21.0-31.0 [facility] Chloride [Moles/volume] in S ganesh or PlasmaOrdered By: Bette Diaz on 07-29-2023 Chloride [Moles/Vol] 100 mmol/L 98-107 [facility] Creatinine [Mass/volume] in Serum or PlasmaOrdered By: Bette Diaz on 07-29-2023 Creatinine [Mass/Vol] 1.41 mg/dL 0.60-1.20 [facility] Creatinine [Mass/volume] in UrineOrdered By: Bette Diaz on 07-29-2023 Creatinine (U) [Mass/Vol] 136.0 mg/dL 11.0-20.0 [facility] Erythrocyte distribution wid th Auto (RBC) [Ratio]Ordered By: Bette Diaz on 07-29-2023 Erythrocyte distribution width (RBC) [Ratio] 14.5 % 11.9-15.3 [facility] Ferritinon 07-29-2023 Ferritin [Mass/Vol] 188.7 ng/mL Normal 11.0-306.8 [facility] Comment on above: Order Comment: Reaso n for Exam Chronic kidney disease, stage III (moderate);Hypertensive ch Performed By: #### H S TROP, CBC, BMP, BNP, PT, PTT #### [facility] [address] [place] [address] [place] Ferritin [Mass/volume] in Se rum or PlasmaOrdered By: Bette Diaz on 07-29-2023 Ferritin [Mass/Vol] 188.7 ng/mL 11.0-306.8 [facility] Glucose [Mass/volume] in Ser um or PlasmaOrdered By: Bette Diaz on 07-29-2023 Glucose [Mass/Vol] 135 mg/dL 70-100 [facility] Comment on above: ADA recommended refe rence rangeRandom Glucose Reference Range is dependent on time and content of last meal. Glucose of more than 200 mg/dL in a nonstressed, ambulatory subject supports the diagnosis of Diabetes Mellitus. Hematocrit Auto (Bld) [Volum e fraction]Ordered By: Bette Diaz on 07-29-2023 Hematocrit (Bld) [Volume fraction] 35.1 % 34.0-46.4 [facility] Hemoglobin [Mass/volume] in BloodOrdered By: Bette Diaz on 07-29-2023 Hemoglobin (Bld) [Mass/Vol] 11.9 g/dL 11.8-15.4 [facility] Hemogram CBC Without Diffon 07-29-2023 Erythrocyte distribution width (RBC) [Ratio] 14.5 % Normal 11.9-15.3 [facility] Comment on above: Order Comment: Reaso n for Exam Chronic kidney disease, stage III (moderate);Hypertensive ch Performed By: #### C BCNO #### [facility] [address] Hematocrit (Bld) [Volume fraction] 35.1 % Normal 34.0-46.4 [facility] Comment on above: Order Comment: Reaso n for Exam Chronic kidney disease, stage III (moderate);Hypertensive ch Performed By: #### C BCNO #### [facility] [address] [place] [id number] [facility] Hemoglobin (Bld) [Mass/Vol] 11.9 g/dL Normal 11.8-15.4 [facility] Comment on above: Order Comment: Reaso n for Exam Chronic kidney disease, stage III (moderate);Hypertensive ch Performed By: #### C BCNO #### [facility] [address] MCH (RBC) [Entitic mass] 33.2 pg Normal 24.7-34.3 [facility] Comment on above: Order Comment: Reaso n for Exam Chronic kidney disease, stage III (moderate);Hypertensive ch Performed By: #### C BCNO #### [address] MCV (RBC) [Entitic vol] 98.3 fL Normal 80-100 [facility] Comment on above: Order Comment: Reaso n for Exam Chronic kidney disease, stage III (moderate);Hypertensive ch Performed By: #### C BCNO #### [address] Mean Corpuscular HGB Conc 33.8 g/dL Normal 32.0-35.0 [facility] Comment on above: Order Comment: Reaso n for Exam Chronic kidney disease, stage III (moderate);Hypertensive ch Performed By: #### C BCNO #### [address] Platelet mean volume (Bld) [Entitic vol] 8.5 fL Normal 6.3-10.7 [facility] Comment on above: Order Comment: Reaso n for Exam Chronic kidney disease, stage III (moderate);Hypertensive ch Result Comment: PERF ORMED BY: [address] [place] [address] PATHOLOGIST [employer] KELSY GROSS M.D. Performed By: #### C BCNO #### [address] Platelets (Bld) [#/Vol] 188 10*3/uL Normal 150-450 [facility] Comment on above: Order Comment: Reaso n for Exam Chronic kidney disease, stage III (moderate);Hypertensive ch Performed By: #### C BCNO #### [address] RBC (Bld) [#/Vol] 3.57 10*6/uL Low 3.60-5.00 [facility] Comment on above: Order Comment: Reaso n for Exam Chronic kidney disease, stage III (moderate);Hypertensive ch Performed By: #### C BCNO #### [facility] [address] WBC (Bld) [#/Vol] 4.5 10*3/uL Normal 3.8-11.6 [facility] Comment on above: Order Comment: Reaso n for Exam Chronic kidney disease, stage III (moderate);Hypertensive ch Performed By: #### C BCNO #### [facility] [address] Iron [Mass/volume] in Serum or PlasmaOrdered By: Bette Diaz on 07-29-2023 Iron [Mass/Vol] 59 ug/dL 50-212 [facility] Iron and TIBC Profileon 07-09 % Iron Saturation 19.2 % Low 20-50 [facility] Comment on above: Order Comment: Reaso n for Exam Chronic kidney disease, stage III (moderate);Hypertensive ch Performed By: #### H S TROP, CBC, BMP, BNP, PT, PTT #### [facility] [address] [place] [id number] [facility] Iron [Mass/Vol] 59 ug/dL Normal 50-212 [facility] Comment on above: Order Comment: Reaso n for Exam Chronic kidney disease, stage III (moderate);Hypertensive ch Performed By: #### H S TROP, CBC, BMP, BNP, PT, PTT #### [facility] [address] [place] [id number] [facility] Total Iron Binding Capacity 307 ug/dL Normal 255-450 [facility] Comment on above: Order Comment: Reaso n for Exam Chronic kidney disease, stage III (moderate);Hypertensive ch Performed By: #### H S TROP, CBC, BMP, BNP, PT, PTT #### [facility] [address] [place] [id number] [facility] Transferrin [Mass/Vol] 219 mg/dL Normal 203-362 [facility] Comment on above: Order Comment: Reaso n for Exam Chronic kidney disease, stage III (moderate);Hypertensive ch Performed By: #### H S TROP, CBC, BMP, BNP, PT, PTT #### [facility] [address] [place] [address] [place] Iron binding capacity [Mass/ volume] in Serum or PlasmaOrdered By: Bette Diaz on 07-29-2023 Iron binding capacity [Mass/Vol] 307 ug/dL 255-450 [facility] Iron saturation [Mass Fracti on] in Serum or PlasmaOrdered By: Bette Diaz on 07-29-2023 Iron saturation [Mass fraction] 19.2 % 20-50 [facility] Leukocytes [#/volume] correc lana for nucleated erythrocytes in Blood by Automated counOrdered By: Bette Diaz on 07-29-2023 WBC corrected for nucl RBC Auto (Bld) [#/Vol] 4.5 10*3/uL 3.8-11.6 [facility] MCH Auto (RBC) [Entitic mass ]Ordered By: Bette Diaz on 07-29-2023 MCH (RBC) [Entitic mass] 33.2 pg 24.7-34.3 [facility] MCHC Auto (RBC) [Mass/Vol]Or dered By: Bette Diaz on 07-29-2023 MCHC (RBC) [Mass/Vol] 33.8 g/dL 32.0-35.0 [facility] MCV Auto (RBC) [Entitic vol] Ordered By: Bette Diaz on 07-29-2023 MCV (RBC) [Entitic vol] 98.3 fL 80-100 [facility] Magnesiumon 07-29-2023 Magnesium [Mass/Vol] 1.9 mg/dL Normal 1.9-2.7 [facility] Comment on above: Order Comment: Reaso n for Exam Chronic kidney disease, stage III (moderate);Hypertensive ch Performed By: #### H S TROP, CBC, BMP, BNP, PT, PTT #### [facility] [address] [place] [address] [facility] Magnesium [Mass/volume] in S ganesh or PlasmaOrdered By: Bette Diaz on 07-29-2023 Magnesium [Mass/Vol] 1.9 mg/dL 1.9-2.7 [facility] No Panel InformationOrdered By: Bette Diaz on 07-29-2023 Estimated GFR (CKD-EPI) 37.243 mL/Min [facility] Creatinine Clearance (Chem N/A [facility] Parathyrin.intact [Mass/volu me] in Serum or PlasmaOrdered By: Bette Diaz on 07-29-2023 Parathyrin.intact [Mass/Vol] 193.8 pg/mL [facility] Parathyroid Hormone Intacton 07-29-2023 Parathyroid Hormone Intact 193.8 pg/mL High [facility] Comment on above: Order Comment: Reaso n for Exam Chronic kidney disease, stage III (moderate);Hypertensive ch Result Comment: PERF ORMED BY: [place] [address] PATHOLOGIST [employer] KELSY GROSS M.D. Performed By: #### H S TROP, CBC, BMP, BNP, PT, PTT #### [address] Phosphate [Mass/volume] in S ganesh or PlasmaOrdered By: Bette Diaz on 07-29-2023 Phosphate [Mass/Vol] 3.9 mg/dL 2.5-4.5 [facility] Platelet mean volume Auto (B ld) [Entitic vol]Ordered By: Bette Diaz on 07-29-2023 Platelet mean volume (Bld) [Entitic vol] 8.5 fL 6.3-10.7 [facility] Platelets Auto (Bld) [#/Vol] Ordered By: Bette Diaz on 07-29-2023 Platelets (Bld) [#/Vol] 188 10*3/uL 150-450 [facility] Potassium [Moles/volume] in Serum or PlasmaOrdered By: Bette Diaz on 07-29-2023 Potassium [Moles/Vol] 3.5 mmol/L 3.5-5.1 [facility] Protein Creat Ratio Ur Rando mon 07-29-2023 Creatinine, Urine (Random) 136.0 mg/dL High 11.0-20.0 [facility] Comment on above: Order Comment: Reaso n for Exam Chronic kidney disease, stage III (moderate);Hypertensive ch Performed By: #### H S TROP, CBC, BMP, BNP, PT, PTT #### [facility] [address] Protein (U) [Mass/Vol] 13 mg/dL High 0-9 [facility] Comment on above: Order Comment: Reaso n for Exam Chronic kidney disease, stage III (moderate);Hypertensive ch Performed By: #### H S TROP, CBC, BMP, BNP, PT, PTT #### [facility] [address] Urine Protein/Creatinine Ratio 96 mg/g{Cre} Normal 0-200 [facility] Comment on above: Order Comment: Reaso n for Exam Chronic kidney disease, stage III (moderate);Hypertensive ch Result Comment: PERF ORMED BY: [place] [address] PATHOLOGIST [employer] KELSY GROSS M.D. Performed By: #### H S TROP, CBC, BMP, BNP, PT, PTT #### [facility] [address] Protein [Mass/volume] in Uri neOrdered By: Bette Diaz on 07-29-2023 Protein (U) [Mass/Vol] 13 mg/dL 0-9 [facility] RBC Auto (Bld) [#/Vol]Ordere d By: Bette Diaz on 07-29-2023 RBC (Bld) [#/Vol] 3.57 10*6/uL 3.60-5.00 [facility] Renal Function Panelon 07-29 Albumin [Mass/Vol] 4.1 g/dL Normal 3.5-5.7 [facility] Comment on above: Order Comment: Reaso n for Exam Chronic kidney disease, stage III (moderate);Hypertensive ch Performed By: #### H S TROP, CBC, BMP, BNP, PT, PTT #### [facility] [address] [place] [address] [place] Anion gap [Moles/Vol] 13.9 mmol/L Normal 6.0-15.0 [facility] Comment on above: Order Comment: Reaso n for Exam Chronic kidney disease, stage III (moderate);Hypertensive ch Performed By: #### H S TROP, CBC, BMP, BNP, PT, PTT #### [facility] [address] [place] [address] [place] Calcium [Mass/Vol] 8.9 mg/dL Normal 8.6-10.3 [facility] Comment on above: Order Comment: Reaso n for Exam Chronic kidney disease, stage III (moderate);Hypertensive ch Performed By: #### H S TROP, CBC, BMP, BNP, PT, PTT #### [facility] [address] [place] [id number] [place] Chloride [Moles/Vol] 100 mmol/L Normal 98-107 [facility] Comment on above: Order Comment: Reaso n for Exam Chronic kidney disease, stage III (moderate);Hypertensive ch Performed By: #### H S TROP, CBC, BMP, BNP, PT, PTT #### [facility] [address] [place] [phone] [place] CO2 [Moles/Vol] 28.6 mmol/L Normal 21.0-31.0 [facility] Comment on above: Order Comment: Reaso n for Exam Chronic kidney disease, stage III (moderate);Hypertensive ch Performed By: #### H S TROP, CBC, BMP, BNP, PT, PTT #### [facility] [address] [place] [phone] [place] Creatinine [Mass/Vol] 1.41 mg/dL High 0.60-1.20 [facility] Comment on above: Order Comment: Reaso n for Exam Chronic kidney disease, stage III (moderate);Hypertensive ch Performed By: #### H S TROP, CBC, BMP, BNP, PT, PTT #### [facility] [address] [place] [id number] [place] GFR/1.73 sq M.predicted MDRD (S/P/Bld) [Vol rate/Area] 37.243 mL/min/{1.73_m2} Normal [facility] Comment on above: Order Comment: Reaso n for Exam Chronic kidney disease, stage III (moderate);Hypertensive ch Performed By: #### H S TROP, CBC, BMP, BNP, PT, PTT #### [facility] [address] [place] [id number] [place] Glucose [Mass/Vol] 135 mg/dL High 70-100 [facility] Comment on above: Order Comment: Reaso n for Exam Chronic kidney disease, stage III (moderate);Hypertensive ch Result Comment: [facility] Glucose Reference Range is dependent on time and content of last meal. Glucose of more than 200 mg/dL in a nonstressed, ambulatory subject supports the diagnosis of Diabetes Mellitus. ADA recommended reference range Performed By: #### H S TROP, CBC, BMP, BNP, PT, PTT #### [facility] [address] [place] [id number] [facility] Phosphate [Mass/Vol] 3.9 mg/dL Normal 2.5-4.5 [facility] Comment on above: Order Comment: Reaso n for Exam Chronic kidney disease, stage III (moderate);Hypertensive ch Performed By: #### H S TROP, CBC, BMP, BNP, PT, PTT #### [facility] [address] [place] [address] [place] Potassium [Moles/Vol] 3.5 mmol/L Normal 3.5-5.1 [facility] Comment on above: Order Comment: Reaso n for Exam Chronic kidney disease, stage III (moderate);Hypertensive ch Performed By: #### H S TROP, CBC, BMP, BNP, PT, PTT #### [facility] [address] [place] [address] [place] Sodium [Moles/Vol] 139 mmol/L Normal 136-145 [facility] Comment on above: Order Comment: Reaso n for Exam Chronic kidney disease, stage III (moderate);Hypertensive ch Performed By: #### H S TROP, CBC, BMP, BNP, PT, PTT #### [facility] [address] [place] [id number] [place] Urea nitrogen [Mass/Vol] 28 mg/dL High 7-25 [facility] Comment on above: Order Comment: Reaso n for Exam Chronic kidney disease, stage III (moderate);Hypertensive ch Performed By: #### H S TROP, CBC, BMP, BNP, PT, PTT #### [facility] [address] Serum or plasma anion gap de terminationOrdered By: Bette Joe on 07-29-2023 Anion gap [Moles/Vol] 13.9 mmol/L 6.0-15.0 [facility] Sodium [Moles/volume] in Ser um or PlasmaOrdered By: Bette Joe on 07-29-2023 Sodium [Moles/Vol] 139 mmol/L 136-145 [facility] Transferrin [Mass/volume] in Serum or PlasmaOrdered By: Bette Joe on 07-29-2023 Transferrin [Mass/Vol] 219 mg/dL 203-362 [facility] Urate [Mass/volume] in Serum or PlasmaOrdered By: Bette Joe on 07-29-2023 Urate [Mass/Vol] 6.5 mg/dL 2.3-6.6 [facility] Urea nitrogen [Mass/volume] in Serum or PlasmaOrdered By: Bette Joe on 07-29-2023 Urea nitrogen [Mass/Vol] 28 mg/dL 7-25 [facility] Uric Acidon 07-29-2023 Urate [Mass/Vol] 6.5 mg/dL Normal 2.3-6.6 [facility] Comment on above: Order Comment: Reaso n for Exam Chronic kidney disease, stage III (moderate);Hypertensive ch Performed By: #### H S TROP, CBC, BMP, BNP, PT, PTT #### [facility] [address] [place] [address] [place] Urine protein/creatinine rat ioOrdered By: Bette Diaz on 07-29-2023 Protein/Creatinine (U) [Ratio] 96 mg/g{Cre} 0-200 [facility] Vitamin D 25 Hydroxy Totalon 07-29-2023 Vitamin D 25 Hydroxy Total 48.8 ng/mL Normal 30-100 [facility] Comment on above: Order Comment: Reaso n for Exam Chronic kidney disease, stage III (moderate);Hypertensive ch Result Comment: GLORIA MIN D STATUS 25(OH)VITAMIN D RANGE (ng/mL) Deficient <20 Insufficient 20 to <30 Sufficient 30 to 100 Reference: Sarah Jacinto, Toshia CHRISTINE et al. Evaluation,treatment, and prevention of vitamin D deficiency; an Endocrine Society clinical practice guideline. JCEM. 2010; 96(7):1911-30. PERFORMED BY: [place] [address] PATHOLOGIST [employer]EL[employer] KELSY GROSS M.D. Performed By: #### H S TROP, CBC, BMP, BNP, PT, PTT #### [facility] [address] Vitamin D+Metabolites [Mass/ volume] in Serum or PlasmaOrdered By: Bette Diaz on 07-29-2023 Vitamin D+Metabolites [Mass/Vol] 48.8 ng/mL 30-100 [facility] Comment on above: VITAMIN D STATUS 25( [place])VITAMIN D RANGE (ng/mL) Deficient <20 Insufficient 20 to <30Sufficient 30 to 100Reference: Sarah Jacinto, Toshia CHRISTINE, et al. Evaluation,treatment, and prevention of vitamin D deficiency; an Endocrine Society clinical practice guideline. JCEM. 2010; 96(7):1911-30. Albumin [Mass/volume] in Ser um or Plasma by Bromocresol green (BCG) dye binding methoOrdered By: Bette Diaz on 05-14-2023 Albumin BCG dye [Mass/Vol] 3.9 g/dL 3.5-5.7 [facility] Calcium [Mass/volume] in Ser um or PlasmaOrdered By: Bette Diaz on 05-14-2023 Calcium [Mass/Vol] 9.1 mg/dL 8.6-10.3 [facility] Carbon dioxide, total [Moles /volume] in Serum or PlasmaOrdered By: Bette Diaz on 05-14-2023 CO2 [Moles/Vol] 26.5 mmol/L 21.0-31.0 [facility] Chloride [Moles/volume] in S ganesh or PlasmaOrdered By: Bette Diaz on 05-14-2023 Chloride [Moles/Vol] 102 mmol/L 98-107 [facility] Creatinine [Mass/volume] in Serum or PlasmaOrdered By: Bette Diaz on 05-14-2023 Creatinine [Mass/Vol] 1.44 mg/dL 0.60-1.20 [facility] Glucose [Mass/volume] in Ser um or PlasmaOrdered By: Bette Diaz on 05-14-2023 Glucose [Mass/Vol] 121 mg/dL 70-100 [facility] Comment on above: ADA recommended refe rence rangeRandom Glucose Reference Range is dependent on time and content of last meal. Glucose of more than 200 mg/dL in a nonstressed, ambulatory subject supports the diagnosis of Diabetes Mellitus. Magnesiumon 05-14-2023 Magnesium [Mass/Vol] 1.9 mg/dL Normal 1.9-2.7 [facility] Comment on above: Order Comment: Reaso n for Exam Chronic kidney disease, stage III (moderate);Hypertensive ch Result Comment: PERF ORMED BY: [place] [address] PATHOLOGIST [employer]EL[employer] KELSY GROSS M.D. Performed By: #### H S TROP, CBC, BMP, BNP, PT, PTT #### [address] Magnesium [Mass/Vol] 1.0157150 mg/dL Normal 1.9- 2.7 mg/dL [employer] Other Magnesium [Mass/volume] in S ganesh or PlasmaOrdered By: Bette Diaz on 05-14-2023 Magnesium [Mass/Vol] 1.9 mg/dL 1.9-2.7 [facility] No Panel InformationOrdered By: Bette Diaz on 05-14-2023 Estimated GFR (CKD-EPI) 36.540 mL/Min [facility] Creatinine Clearance (Chem N/A [facility] Phosphate [Mass/volume] in S ganesh or PlasmaOrdered By: Bette Diaz on 05-14-2023 Phosphate [Mass/Vol] 3.2 mg/dL 2.5-4.5 [facility] Potassium [Moles/volume] in Serum or PlasmaOrdered By: Bette Diaz on 05-14-2023 Potassium [Moles/Vol] 3.8 mmol/L 3.5-5.1 [facility] Renal Function Panelon 05-14 Albumin [Mass/Vol] 3.9 g/dL Normal 3.5-5.7 [facility] Comment on above: Order Comment: Reaso n for Exam Chronic kidney disease, stage III (moderate);Hypertensive ch Result Comment: PERF ORMED BY: [place] [address] PATHOLOGIST [employer] KELSY GROSS M.D. Performed By: #### H S TROP, CBC, BMP, BNP, PT, PTT #### [facility] [address] Anion gap [Moles/Vol] 13.3 mmol/L Normal 6.0-15.0 [facility] Comment on above: Order Comment: Reaso n for Exam Chronic kidney disease, stage III (moderate);Hypertensive ch Performed By: #### H S TROP, CBC, BMP, BNP, PT, PTT #### [facility] [address] Calcium [Mass/Vol] 9.1 mg/dL Normal 8.6-10.3 [facility] Comment on above: Order Comment: Reaso n for Exam Chronic kidney disease, stage III (moderate);Hypertensive ch Performed By: #### H S TROP, CBC, BMP, BNP, PT, PTT #### [facility] [address] [place] [id number] [place] Chloride [Moles/Vol] 102 mmol/L Normal 98-107 [facility] Comment on above: Order Comment: Reaso n for Exam Chronic kidney disease, stage III (moderate);Hypertensive ch Performed By: #### H S TROP, CBC, BMP, BNP, PT, PTT #### [facility] [address] [place] [id number] [place] CO2 [Moles/Vol] 26.5 mmol/L Normal 21.0-31.0 [facility] Comment on above: Order Comment: Reaso n for Exam Chronic kidney disease, stage III (moderate);Hypertensive ch Performed By: #### H S TROP, CBC, BMP, BNP, PT, PTT #### [facility] [address] [place] [id number] [place] Creatinine [Mass/Vol] 1.44 mg/dL High 0.60-1.20 [facility] Comment on above: Order Comment: Reaso n for Exam Chronic kidney disease, stage III (moderate);Hypertensive ch Performed By: #### H S TROP, CBC, BMP, BNP, PT, PTT #### [facility] [address] [place] [address] [place] GFR/1.73 sq M.predicted MDRD (S/P/Bld) [Vol rate/Area] 36.540 mL/min/{1.73_m2} Normal [facility] Comment on above: Order Comment: Reaso n for Exam Chronic kidney disease, stage III (moderate);Hypertensive ch Performed By: #### H S TROP, CBC, BMP, BNP, PT, PTT #### [facility] [address] [place] [id number] [place] Glucose [Mass/Vol] 121 mg/dL High 70-100 [facility] Comment on above: Order Comment: Reaso n for Exam Chronic kidney disease, stage III (moderate);Hypertensive ch Result Comment: [place] Glucose Reference Range is dependent on time and content of last meal. Glucose of more than 200 mg/dL in a nonstressed, ambulatory subject supports the diagnosis of Diabetes Mellitus. ADA recommended reference range Performed By: #### H S TROP, CBC, BMP, BNP, PT, PTT #### [facility] [address] [place] [id number] [place] Phosphate [Mass/Vol] 3.2 mg/dL Normal 2.5-4.5 [facility] Comment on above: Order Comment: Reaso n for Exam Chronic kidney disease, stage III (moderate);Hypertensive ch Performed By: #### H S TROP, CBC, BMP, BNP, PT, PTT #### [facility] [address] [place] [id number] [place] Potassium [Moles/Vol] 3.8 mmol/L Normal 3.5-5.1 [facility] Comment on above: Order Comment: Reaso n for Exam Chronic kidney disease, stage III (moderate);Hypertensive ch Performed By: #### H S TROP, CBC, BMP, BNP, PT, PTT #### [facility] [address] [place] [id number] [facility] Sodium [Moles/Vol] 138 mmol/L Normal 136-145 [facility] Comment on above: Order Comment: Reaso n for Exam Chronic kidney disease, stage III (moderate);Hypertensive ch Performed By: #### H S TROP, CBC, BMP, BNP, PT, PTT #### [facility] [address] Urea nitrogen [Mass/Vol] 43 mg/dL High 01-29 [facility] Comment on above: Order Comment: Reaso n for Exam Chronic kidney disease, stage III (moderate);Hypertensive ch Performed By: #### H S TROP, CBC, BMP, BNP, PT, PTT #### [facility] [address] Serum or plasma anion gap de terminationOrdered By: Bette Joe on 05-14-2023 Anion gap [Moles/Vol] 13.3 mmol/L 6.0-15.0 [facility] Sodium [Moles/volume] in Ser um or PlasmaOrdered By: Bette Joe on 05-14-2023 Sodium [Moles/Vol] 138 mmol/L 136-145 [facility] Urea nitrogen [Mass/volume] in Serum or PlasmaOrdered By: Bette Joe on 05-14-2023 Urea nitrogen [Mass/Vol] 43 mg/dL 01-29 [facility] Basic Metabolic Panelon 04-09 Anion gap [Moles/Vol] 12.8 mmol/L Normal 6.0-15.0 [facility] Comment on above: Performed By: #### H S TROP, CBC, BMP, BNP, PT, PTT #### [facility] [address] [place] [id number] [facility] Calcium [Mass/Vol] 8.9 mg/dL Normal 8.6-10.3 [facility] Comment on above: Performed By: #### H S TROP, CBC, BMP, BNP, PT, PTT #### [facility] [address] Chloride [Moles/Vol] 102 mmol/L Normal 98-107 [facility] Comment on above: Performed By: #### H S TROP, CBC, BMP, BNP, PT, PTT #### [facility] [address] CO2 [Moles/Vol] 27.3 mmol/L Normal 21.0-31.0 [facility] Comment on above: Performed By: #### H S TROP, CBC, BMP, BNP, PT, PTT #### [facility] [address] Creatinine [Mass/Vol] 2.14 mg/dL High 0.60-1.20 [facility] Comment on above: Performed By: #### H S TROP, CBC, BMP, BNP, PT, PTT #### [facility] [address] Creatinine Clr Calc Pharmacy 30.69 [facility] Comment on above: Result Comment: PERF ORMED BY: [place] [address] PATHOLOGIST [employer] KELSY GROSS M.D. Performed By: #### H S TROP, CBC, BMP, BNP, PT, PTT #### [address] GFR/1.73 sq M.predicted MDRD (S/P/Bld) [Vol rate/Area] 22.715 mL/min/{1.73_m2} Normal [facility] Comment on above: Performed By: #### H S TROP, CBC, BMP, BNP, PT, PTT #### [facility] [address] Glucose [Mass/Vol] 105 mg/dL High 70-100 [facility] Comment on above: Result Comment: [place] Glucose Reference Range is dependent on time and content of last meal. Glucose of more than 200 mg/dL in a nonstressed, ambulatory subject supports the diagnosis of Diabetes Mellitus. ADA recommended reference range Performed By: #### H S TROP, CBC, BMP, BNP, PT, PTT #### [facility] [address] Potassium [Moles/Vol] 4.1 mmol/L Normal 3.5-5.1 [facility] Comment on above: Performed By: #### H S TROP, CBC, BMP, BNP, PT, PTT #### [facility] [address] Sodium [Moles/Vol] 138 mmol/L Normal 136-145 [facility] Comment on above: Performed By: #### H S TROP, CBC, BMP, BNP, PT, PTT #### [facility] [address] [place] [address] [place] Urea nitrogen [Mass/Vol] 54 mg/dL High 7-25 [facility] Comment on above: Performed By: #### H S TROP, CBC, BMP, BNP, PT, PTT #### [facility] [address] Calcium [Mass/volume] in Ser um or PlasmaOrdered By: Magali Galindo on 05-06-2023 Calcium [Mass/Vol] 8.9 mg/dL 8.6-10.3 [facility] Carbon dioxide, total [Moles /volume] in Serum or PlasmaOrdered By: Magali Galindo on 05-06-2023 CO2 [Moles/Vol] 27.3 mmol/L 21.0-31.0 [facility] Chloride [Moles/volume] in S ganesh or PlasmaOrdered By: Magali Galindo on 05-06-2023 Chloride [Moles/Vol] 102 mmol/L 98-107 [facility] Creatinine [Mass/volume] in Serum or PlasmaOrdered By: Magali Galindo on 05-06-2023 Creatinine [Mass/Vol] 2.14 mg/dL 0.60-1.20 [facility] Glucose [Mass/volume] in Ser um or PlasmaOrdered By: Magali Galindo on 05-06-2023 Glucose [Mass/Vol] 105 mg/dL 70-100 [facility] Comment on above: ADA recommended refe rence rangeRandom Glucose Reference Range is dependent on time and content of last meal. Glucose of more than 200 mg/dL in a nonstressed, ambulatory subject supports the diagnosis of Diabetes Mellitus. No Panel InformationOrdered By: Magali Galindo on 05-06-2023 Estimated GFR (CKD-EPI) 22.715 mL/Min [facility] Creatinine Clearance (Chem 30.69 [facility] Potassium [Moles/volume] in Serum or PlasmaOrdered By: Magali Galindo on 05-06-2023 Potassium [Moles/Vol] 4.1 mmol/L 3.5-5.1 [facility] Serum or plasma anion gap de terminationOrdered By: Magali Galindo on 05-06-2023 Anion gap [Moles/Vol] 12.8 mmol/L 6.0-15.0 [facility] Sodium [Moles/volume] in Ser um or PlasmaOrdered By: Magali Galindo on 05-06-2023 Sodium [Moles/Vol] 138 mmol/L 136-145 [facility] Urea nitrogen [Mass/volume] in Serum or PlasmaOrdered By: Magali Galindo on 05-06-2023 Urea nitrogen [Mass/Vol] 54 mg/dL 01-29 [facility] Alanine aminotransferase [En zymatic activity/volume] in Serum or PlasmaOrdered By: Kurtis Montes on 05-05-2023 ALT [Catalytic activity/Vol] 22 U/L [facility] Albumin [Mass/volume] in Ser um or Plasma by Bromocresol green (BCG) dye binding methoOrdered By: Kurtis Montes on 05-05-2023 Albumin BCG dye [Mass/Vol] 3.6 g/dL 3.5-5.7 [facility] Alkaline phosphatase [Enzyma tic activity/volume] in Serum or PlasmaOrdered By: Kurtis Montes on 05-05-2023 ALP [Catalytic activity/Vol] 189 U/L 34-104 [facility] Aspartate aminotransferase [ Enzymatic activity/volume] in Serum or PlasmaOrdered By: Kurtis Montes on 05-05-2023 AST [Catalytic activity/Vol] 31 U/L 13-39 [facility] Basophils Auto (Bld) [#/Vol] Ordered By: Kurtis Simon on 05-05-2023 Basophils (Bld) [#/Vol] 0.1 10*3/uL 0.0-0.2 [facility] Basophils/100 WBC Auto (Bld) Ordered By: Kurtis Simon on 05-05-2023 Basophils/100 WBC (Bld) 0.9 % . [facility] Bilirubin.total [Mass/volume ] in Serum or PlasmaOrdered By: Kurtis Elkinsmood on 05-05-2023 Bilirubin [Mass/Vol] 0.8 mg/dL 0.3-1.0 [facility] Complete Blood Count Auto Di ffon 05-05-2023 Basophils (Bld) [#/Vol] 0.1 10*3/uL Normal 0.0-0.2 [facility] Comment on above: Result Comment: PERF ORMED BY: [place] [address] PATHOLOGIST [employer] KELSY GROSS M.D. Performed By: #### H S TROP, CBC, BMP, BNP, PT, PTT #### [facility] [address] [place] [address] [place] Basophils/100 WBC (Bld) 0.9 % Normal . [facility] Comment on above: Performed By: #### H S TROP, CBC, BMP, BNP, PT, PTT #### [facility] [address] [place] [address] [place] Eosinophils (Bld) [#/Vol] 0.4 10*3/uL Normal 0.0-0.45 [facility] Comment on above: Performed By: #### H S TROP, CBC, BMP, BNP, PT, PTT #### [facility] [address] [place] [address] [place] Eosinophils/100 WBC (Bld) 4.8 % Normal . [facility] Comment on above: Performed By: #### H S TROP, CBC, BMP, BNP, PT, PTT #### [address] Erythrocyte distribution width (RBC) [Ratio] 13.2 % Normal 11.9-15.3 [facility] Comment on above: Performed By: #### H S TROP, CBC, BMP, BNP, PT, PTT #### [address] Hematocrit (Bld) [Volume fraction] 32.6 % Low 34.0-46.4 [facility] Comment on above: Performed By: #### H S TROP, CBC, BMP, BNP, PT, PTT #### [address] Hemoglobin (Bld) [Mass/Vol] 11.0 g/dL Low 11.8-15.4 [facility] Comment on above: Performed By: #### H S TROP, CBC, BMP, BNP, PT, PTT #### [address] Lymphocytes (Bld) [#/Vol] 1.8 10*3/uL Normal 1.00-4.8 [facility] Comment on above: Performed By: #### H S TROP, CBC, BMP, BNP, PT, PTT #### [address] Lymphocytes/100 WBC (Bld) 22.9 % Normal . [facility] Comment on above: Performed By: #### H S TROP, CBC, BMP, BNP, PT, PTT #### [address] MCH (RBC) [Entitic mass] 33.5 pg Normal 24.7-34.3 [facility] Comment on above: Performed By: #### H S TROP, CBC, BMP, BNP, PT, PTT #### [address] MCV (RBC) [Entitic vol] 99.3 fL Normal 80-100 [facility] Comment on above: Performed By: #### H S TROP, CBC, BMP, BNP, PT, PTT #### [address] Mean Corpuscular HGB Conc 33.7 g/dL Normal 32.0-35.0 [facility] Comment on above: Performed By: #### H S TROP, CBC, BMP, BNP, PT, PTT #### [address] Monocytes (Bld) [#/Vol] 0.8 10*3/uL Normal 0.0-0.8 [facility] Comment on above: Performed By: #### H S TROP, CBC, BMP, BNP, PT, PTT #### [address] Monocytes/100 WBC (Bld) 9.9 % Normal . [facility] Comment on above: Performed By: #### H S TROP, CBC, BMP, BNP, PT, PTT #### [address] Neutrophils (Bld) [#/Vol] 4.7 10*3/uL Normal 1.8-7.7 [facility] Comment on above: Performed By: #### H S TROP, CBC, BMP, BNP, PT, PTT #### [address] Neutrophils/100 WBC (Bld) 61.5 % Normal . [facility] Comment on above: Performed By: #### H S TROP, CBC, BMP, BNP, PT, PTT #### [address] NRBC% 0.1 /100{WBC} Normal 0-0.5 [facility] Comment on above: Performed By: #### H S TROP, CBC, BMP, BNP, PT, PTT #### [address] Platelet mean volume (Bld) [Entitic vol] 8.1 fL Normal 6.3-10.7 [facility] Comment on above: Performed By: #### H S TROP, CBC, BMP, BNP, PT, PTT #### [facility] [address] [place] [address] Platelets (Bld) [#/Vol] 224 10*3/uL Normal 150-450 [facility] Comment on above: Performed By: #### H S TROP, CBC, BMP, BNP, PT, PTT #### [address] RBC (Bld) [#/Vol] 3.28 10*6/uL Low 3.60-5.00 [facility] Comment on above: Performed By: #### H S TROP, CBC, BMP, BNP, PT, PTT #### [address] WBC (Bld) [#/Vol] 7.7 10*3/uL Normal 3.8-11.6 [facility] Comment on above: Performed By: #### H S TROP, CBC, BMP, BNP, PT, PTT #### [address] Comprehensive Metabolic Pane yuan 05-05-2023 Albumin [Mass/Vol] 3.6 g/dL Normal 3.5-5.7 [facility] Comment on above: Performed By: #### H S TROP, CBC, BMP, BNP, PT, PTT #### [address] Albumin/Globulin [Mass ratio] 1.2 {ratio} Normal [facility] Comment on above: Performed By: #### H S TROP, CBC, BMP, BNP, PT, PTT #### [address] ALP [Catalytic activity/Vol] 189 U/L High 34-104 [facility] Comment on above: Performed By: #### H S TROP, CBC, BMP, BNP, PT, PTT #### [address] ALT [Catalytic activity/Vol] 22 U/L Normal 7-52 [facility] Comment on above: Performed By: #### H S TROP, CBC, BMP, BNP, PT, PTT #### [facility] [address] [place] [address] Anion gap [Moles/Vol] 12.0 mmol/L Normal 6.0-15.0 [facility] Comment on above: Performed By: #### H S TROP, CBC, BMP, BNP, PT, PTT #### [facility] [address] [place] [address] AST [Catalytic activity/Vol] 31 U/L Normal 13-39 [facility] Comment on above: Performed By: #### H S TROP, CBC, BMP, BNP, PT, PTT #### [address] Bilirubin [Mass/Vol] 0.8 mg/dL Normal 0.3-1.0 [facility] Comment on above: Performed By: #### H S TROP, CBC, BMP, BNP, PT, PTT #### [address] Calcium [Mass/Vol] 8.8 mg/dL Normal 8.6-10.3 [facility] Comment on above: Performed By: #### H S TROP, CBC, BMP, BNP, PT, PTT #### [address] Chloride [Moles/Vol] 104 mmol/L Normal 98-107 [facility] Comment on above: Performed By: #### H S TROP, CBC, BMP, BNP, PT, PTT #### [address] CO2 [Moles/Vol] 28.1 mmol/L Normal 21.0-31.0 [facility] Comment on above: Performed By: #### H S TROP, CBC, BMP, BNP, PT, PTT #### [address] Creatinine [Mass/Vol] 2.03 mg/dL High 0.60-1.20 [facility] Comment on above: Performed By: #### H S TROP, CBC, BMP, BNP, PT, PTT #### [address] Creatinine Clr Calc Pharmacy 32.57 [facility] Comment on above: Result Comment: PERF ORMED BY: [place] [address] PATHOLOGIST [employer] KELSY GROSS M.D. Performed By: #### H S TROP, CBC, BMP, BNP, PT, PTT #### [address] GFR/1.73 sq M.predicted MDRD (S/P/Bld) [Vol rate/Area] 24.200 mL/min/{1.73_m2} [facility] Comment on above: Performed By: #### H S TROP, CBC, BMP, BNP, PT, PTT #### [address] Globulin (S) [Mass/Vol] 3.1 g/dL [facility] Comment on above: Performed By: #### H S TROP, CBC, BMP, BNP, PT, PTT #### [address] Glucose [Mass/Vol] 118 mg/dL High 70-100 [facility] Comment on above: Result Comment: [place] Glucose Reference Range is dependent on time and content of last meal. Glucose of more than 200 mg/dL in a nonstressed, ambulatory subject supports the diagnosis of Diabetes Mellitus. ADA recommended reference range Performed By: #### H S TROP, CBC, BMP, BNP, PT, PTT #### [address] Potassium [Moles/Vol] 4.1 mmol/L Normal 3.5-5.1 [facility] Comment on above: Performed By: #### H S TROP, CBC, BMP, BNP, PT, PTT #### [address] Protein [Mass/Vol] 6.7 g/dL Normal 6.4-8.9 [facility] Comment on above: Performed By: #### H S TROP, CBC, BMP, BNP, PT, PTT #### [address] Sodium [Moles/Vol] 140 mmol/L Normal 136-145 [facility] Comment on above: Performed By: #### H S TROP, CBC, BMP, BNP, PT, PTT #### [facility] [address] Urea nitrogen [Mass/Vol] 56 mg/dL High 01-29 [facility] Comment on above: Performed By: #### H S TROP, CBC, BMP, BNP, PT, PTT #### [address] Creatine Kinaseon 05-05-2023 CK [Catalytic activity/Vol] 329 U/L High [facility] Comment on above: Performed By: #### H S TROP, CBC, BMP, BNP, PT, PTT #### [address] Creatine kinase [Enzymatic a ctivity/volume] in Serum or PlasmaOrdered By: Anish Fraser on 05-05-2023 CK [Catalytic activity/Vol] 329 U/L [facility] ECG 12 lead ECGon 05-05-2023 ECG 12 lead ECG [facility] [address] Electrocardiograph Report Signed Patient: Leia Amaya MR#: [id number] : 1940 Acct:[id number] Age/Sex: 82 / F ADM Date: 05/05/23 Loc: Room: [address] [place] [address] Type: DIS IN Attending Dr: Abundio Sauer DO Ordering Provider: Abundio Sauer DO Date of Service: 05/05/23 ECG/ECG 12 lead ECG: pt evaluation Copies to: Test Reason : Blood Pressure : / mmHG Vent. Rate : 050 BPM Atrial Rate : 050 BPM P-R Int : 172 ms QRS Dur : 110 ms QT Int : 486 ms P-R-T Axes : 067 045 063 degrees QTc Int : 443 ms Sinus bradycardia Otherwise normal ECG No previous ECGs available Confirmed by VERONICA LLANES [facility], EKTA ([id number]) on 05/07/2023 4:35:32 PM Referred By: NURSING Electronically Signed By:EKTA MANCIA MD [facility] Transcribed By: MUS Signed By Ekta Mancia MD, [facility] 05/07/23 1635 Normal [facility] Eosinophils Auto (Bld) [#/Vo l]Ordered By: Kurtis Montes on 05-05-2023 Eosinophils (Bld) [#/Vol] 0.4 10*3/uL 0.0-0.45 [facility] Eosinophils/100 WBC Auto (Bl d)Ordered By: Kurtis Montes on 05-05-2023 Eosinophils/100 WBC (Bld) 4.8 % . [facility] Erythrocyte distribution wid th Auto (RBC) [Ratio]Ordered By: Kurtis Montes on 05-05-2023 Erythrocyte distribution width (RBC) [Ratio] 13.2 % 11.9-15.3 [facility] Globulin Calc (S) [Mass/Vol] Ordered By: Kurtis Montes on 05-05-2023 Globulin (S) [Mass/Vol] 3.1 g/dL [facility] Hematocrit Auto (Bld) [Volum e fraction]Ordered By: Kurtis Montes on 05-05-2023 Hematocrit (Bld) [Volume fraction] 32.6 % 34.0-46.4 [facility] Hemoglobin [Mass/volume] in BloodOrdered By: Kurtis Montes on 05-05-2023 Hemoglobin (Bld) [Mass/Vol] 11.0 g/dL 11.8-15.4 [facility] Leukocytes [#/volume] correc lana for nucleated erythrocytes in Blood by Automated counOrdered By: Kurtis Montes on 05-05-2023 WBC corrected for nucl RBC Auto (Bld) [#/Vol] 7.7 10*3/uL 3.8-11.6 [facility] Lymphocytes Auto (Bld) [#/Vo l]Ordered By: Kurtis Simon on 05-05-2023 Lymphocytes (Bld) [#/Vol] 1.8 10*3/uL 1.00-4.8 [facility] Lymphocytes/100 WBC Auto (Bl d)Ordered By: Kurtis Simon on 05-05-2023 Lymphocytes/100 WBC (Bld) 22.9 % . [facility] MCH Auto (RBC) [Entitic mass ]Ordered By: Kurtis Simon on 05-05-2023 MCH (RBC) [Entitic mass] 33.5 pg 24.7-34.3 [facility] MCHC Auto (RBC) [Mass/Vol]Or dered By: Kurtis Simon on 05-05-2023 MCHC (RBC) [Mass/Vol] 33.7 g/dL 32.0-35.0 [facility] MCV Auto (RBC) [Entitic vol] Ordered By: Kurtis Elkinsmood on 05-05-2023 MCV (RBC) [Entitic vol] 99.3 fL 80-100 [facility] Monocytes Auto (Bld) [#/Vol] Ordered By: Kurtis Simon on 05-05-2023 Monocytes (Bld) [#/Vol] 0.8 10*3/uL 0.0-0.8 [facility] Monocytes/100 WBC Auto (Bld) Ordered By: Kurtis Simon on 05-05-2023 Monocytes/100 WBC (Bld) 9.9 % . [facility] Neutrophils Auto (Bld) [#/Vo l]Ordered By: Kurtis Simon on 05-05-2023 Neutrophils (Bld) [#/Vol] 4.7 10*3/uL 1.8-7.7 [facility] Neutrophils/100 WBC Auto (Bl d)Ordered By: Kurtis Simon on 05-05-2023 Neutrophils/100 WBC (Bld) 61.5 % . [facility] Nucleated erythrocytes [Pres ence] in Blood by Automated countOrdered By: Kurtis Simon on 05-05-2023 Nucleated RBC Auto Ql (Bld) 0.1 /100{WBC} 0-0.5 [facility] Platelet mean volume Auto (B ld) [Entitic vol]Ordered By: Kurtis Montes on 05-05-2023 Platelet mean volume (Bld) [Entitic vol] 8.1 fL 6.3-10.7 [facility] Platelets Auto (Bld) [#/Vol] Ordered By: Kurtis Montes on 05-05-2023 Platelets (Bld) [#/Vol] 224 10*3/uL 150-450 [facility] Protein [Mass/volume] in Ser um or PlasmaOrdered By: Kurtis Montes on 05-05-2023 Protein [Mass/Vol] 6.7 g/dL 6.4-8.9 [facility] RBC Auto (Bld) [#/Vol]Ordere d By: Kurtis Montes on 05-05-2023 RBC (Bld) [#/Vol] 3.28 10*6/uL 3.60-5.00 [facility] Serum or plasma albumin/glob ulin mass ratioOrdered By: Kurtis Montes on 05-05-2023 Albumin/Globulin [Mass ratio] 1.2 {ratio} [facility] Troponin I High Sensitivityo n 05-05-2023 Troponin I High Sensitivity 26.5 pg/mL High 0.0-15.0 [facility] Comment on above: Result Comment: PERF ORMED BY: [place] [address] PATHOLOGIST [employer] KELSY GROSS M.D. Performed By: #### H S TROP, CBC, BMP, BNP, PT, PTT #### [facility] [address] Troponin I.cardiac [Mass/vol ume] in Serum or Plasma by Detection limit <= 0.01 ng/Ordered By: Anish Fraser on 05-05-2023 Troponin I.cardiac DL <= 0.01 ng/mL [Mass/Vol] 26.5 pg/mL 0.0-15.0 [facility] WBC Auto (Bld) [#/Vol]Ordere d By: Kurtis Montes on 05-05-2023 WBC (Bld) [#/Vol] 7.7 10*3/uL 3.8-11.6 [facility] Basic Metabolic Panelon 10-2 Anion gap [Moles/Vol] 12.1 mmol/L Normal 6.0-15.0 [facility] Comment on above: Performed By: #### H S TROP, CBC, BMP, BNP, PT, PTT #### [address] Calcium [Mass/Vol] 8.7 mg/dL Normal 8.6-10.3 [facility] Comment on above: Performed By: #### H S TROP, CBC, BMP, BNP, PT, PTT #### [address] Chloride [Moles/Vol] 104 mmol/L Normal 98-107 [facility] Comment on above: Performed By: #### H S TROP, CBC, BMP, BNP, PT, PTT #### [address] CO2 [Moles/Vol] 27.4 mmol/L Normal 21.0-31.0 [facility] Comment on above: Performed By: #### H S TROP, CBC, BMP, BNP, PT, PTT #### [address] Creatinine [Mass/Vol] 1.73 mg/dL High 0.60-1.20 [facility] Comment on above: Performed By: #### H S TROP, CBC, BMP, BNP, PT, PTT #### [place] [address] [place] Creatinine Clr Calc Pharmacy 38.21 Normal [facility] Comment on above: Result Comment: PERF ORMED BY: [place] [address] PATHOLOGIST [employer] KELSY GROSS M.D. Performed By: #### H S TROP, CBC, BMP, BNP, PT, PTT #### [place] [address] [place] GFR/1.73 sq M.predicted MDRD (S/P/Bld) [Vol rate/Area] 29.319 mL/min/{1.73_m2} Normal [facility] Comment on above: Performed By: #### H S TROP, CBC, BMP, BNP, PT, PTT #### [facility] [address] Glucose [Mass/Vol] 112 mg/dL High 70-100 [facility] Comment on above: Result Comment: [facility] Glucose Reference Range is dependent on time and content of last meal. Glucose of more than 200 mg/dL in a nonstressed, ambulatory subject supports the diagnosis of Diabetes Mellitus. ADA recommended reference range Performed By: #### H S TROP, CBC, BMP, BNP, PT, PTT #### [address] Potassium [Moles/Vol] 4.5 mmol/L Normal 3.5-5.1 [facility] Comment on above: Performed By: #### H S TROP, CBC, BMP, BNP, PT, PTT #### [address] Sodium [Moles/Vol] 139 mmol/L Normal 136-145 [facility] Comment on above: Performed By: #### H S TROP, CBC, BMP, BNP, PT, PTT #### [address] Urea nitrogen [Mass/Vol] 60 mg/dL High 7-25 [facility] Comment on above: Performed By: #### H S TROP, CBC, BMP, BNP, PT, PTT #### [address] Activated partial thrombopla stin time (aPTT) in platelet poor plasma by coagulation aOrdered By: Sharon Farrar on 05-03-2023 aPTT Coag (PPP) [Time] 30.1 s 25.1-36.5 [facility] Comment on above: A hematocrit value g reater than 55% may lead to inaccurate results in coagulation testing. Patients having hematocrit values >55% require a special collection tube for coagulation studies. Please contact the laboratory at [phone] for redraw instructions. B-Type Natriuretic Peptideon 05-03-2023 Natriuretic peptide B (Bld) [Mass/Vol] 226.0 pg/mL High 5-100 [facility] Comment on above: Result Comment: PERF ORMED BY: [place] [address] PATHOLOGIST [employer]EL[employer] KELSY GROSS M.D. Performed By: #### H S TROP, CBC, BMP, BNP, PT, PTT #### [address] Basic Metabolic Panelon 04-08 Anion gap [Moles/Vol] 19.1 mmol/L High 6.0-15.0 [facility] Comment on above: Performed By: #### H S TROP, CBC, BMP, BNP, PT, PTT #### [facility] [address] [place] [address] Calcium [Mass/Vol] 9.0 mg/dL Normal 8.6-10.3 [facility] Comment on above: Performed By: #### H S TROP, CBC, BMP, BNP, PT, PTT #### [address] Chloride [Moles/Vol] 102 mmol/L Normal 98-107 [facility] Comment on above: Performed By: #### H S TROP, CBC, BMP, BNP, PT, PTT #### [address] CO2 [Moles/Vol] 25.1 mmol/L Normal 21.0-31.0 [facility] Comment on above: Performed By: #### H S TROP, CBC, BMP, BNP, PT, PTT #### [address] Creatinine [Mass/Vol] 1.99 mg/dL High 0.60-1.20 [facility] Comment on above: Performed By: #### H S TROP, CBC, BMP, BNP, PT, PTT #### [place] [address] [place] Creatinine Clr Calc Pharmacy 33.22 [facility] Comment on above: Result Comment: PERF ORMED BY: [place] [address] PATHOLOGIST [employer]EL[employer] KELSY GROSS M.D. Performed By: #### H S TROP, CBC, BMP, BNP, PT, PTT #### [place] [address] [place] GFR/1.73 sq M.predicted MDRD (S/P/Bld) [Vol rate/Area] 24.785 mL/min/{1.73_m2} [facility] Comment on above: Performed By: #### H S TROP, CBC, BMP, BNP, PT, PTT #### [address] Glucose [Mass/Vol] 164 mg/dL High 70-100 [facility] Comment on above: Result Comment: [place] Glucose Reference Range is dependent on time and content of last meal. Glucose of more than 200 mg/dL in a nonstressed, ambulatory subject supports the diagnosis of Diabetes Mellitus. ADA recommended reference range Performed By: #### H S TROP, CBC, BMP, BNP, PT, PTT #### [address] Potassium [Moles/Vol] 4.2 mmol/L Normal 3.5-5.1 [facility] Comment on above: Performed By: #### H S TROP, CBC, BMP, BNP, PT, PTT #### [place] [address] [place] Sodium [Moles/Vol] 142 mmol/L Normal 136-145 [facility] Comment on above: Performed By: #### H S TROP, CBC, BMP, BNP, PT, PTT #### [place] [address] [place] Urea nitrogen [Mass/Vol] 68 mg/dL High 7-25 [facility] Comment on above: Performed By: #### H S TROP, CBC, BMP, BNP, PT, PTT #### [facility] [address] Basophils Auto (Bld) [#/Vol] Ordered By: Sharon Farrar on 05-03-2023 Basophils (Bld) [#/Vol] 0.1 10*3/uL 0.0-0.2 [facility] Basophils/100 WBC Auto (Bld) Ordered By: Sharon Farrar on 05-03-2023 Basophils/100 WBC (Bld) 1.3 % . [facility] Bilirubin Auto test strip Ql (U)Ordered By: Sharon Farrar on 05-03-2023 Bilirubin Ql (U) Negative Negative [facility] Calcium [Mass/volume] in Ser um or PlasmaOrdered By: Sharon Farrar on 05-03-2023 Calcium [Mass/Vol] 9.0 mg/dL 8.6-10.3 [facility] Carbon dioxide, total [Moles /volume] in Serum or PlasmaOrdered By: Sharon Farrar on 05-03-2023 CO2 [Moles/Vol] 25.1 mmol/L 21.0-31.0 [facility] Chloride [Moles/volume] in S ganesh or PlasmaOrdered By: [facility] Chloride [Moles/Vol] 102 mmol/L 98-107 [facility] Complete Blood Count Auto Di ffon 05-03-2023 Basophils (Bld) [#/Vol] 0.1 10*3/uL Normal 0.0-0.2 [facility] Comment on above: Result Comment: PERF ORMED BY: [place] [address] PATHOLOGIST [employer]EL[employer] KELSY GROSS M.D. Performed By: #### H S TROP, CBC, BMP, BNP, PT, PTT #### [facility] [address] Basophils/100 WBC (Bld) 1.3 % Normal . [facility] Comment on above: Performed By: #### H S TROP, CBC, BMP, BNP, PT, PTT #### [address] Eosinophils (Bld) [#/Vol] 0.2 10*3/uL Normal 0.0-0.45 [facility] Comment on above: Performed By: #### H S TROP, CBC, BMP, BNP, PT, PTT #### [address] Eosinophils/100 WBC (Bld) 2.6 % Normal . [facility] Comment on above: Performed By: #### H S TROP, CBC, BMP, BNP, PT, PTT #### [address] Erythrocyte distribution width (RBC) [Ratio] 13.8 % Normal 11.9-15.3 [facility] Comment on above: Performed By: #### H S TROP, CBC, BMP, BNP, PT, PTT #### [address] Hematocrit (Bld) [Volume fraction] 35.2 % Normal 34.0-46.4 [facility] Comment on above: Performed By: #### H S TROP, CBC, BMP, BNP, PT, PTT #### [address] Hemoglobin (Bld) [Mass/Vol] 11.8 g/dL Normal 11.8-15.4 [facility] Comment on above: Performed By: #### H S TROP, CBC, BMP, BNP, PT, PTT #### [address] Lymphocytes (Bld) [#/Vol] 1.3 10*3/uL Normal 1.00-4.8 [facility] Comment on above: Performed By: #### H S TROP, CBC, BMP, BNP, PT, PTT #### [address] Lymphocytes/100 WBC (Bld) 17.5 % Normal . [facility] Comment on above: Performed By: #### H S TROP, CBC, BMP, BNP, PT, PTT #### [place] [id number] [place] MCH (RBC) [Entitic mass] 33.4 pg Normal 24.7-34.3 [facility] Comment on above: Performed By: #### H S TROP, CBC, BMP, BNP, PT, PTT #### [address] MCV (RBC) [Entitic vol] 99.4 fL Normal 80-100 [facility] Comment on above: Performed By: #### H S TROP, CBC, BMP, BNP, PT, PTT #### [address] Mean Corpuscular HGB Conc 33.6 g/dL Normal 32.0-35.0 [facility] Comment on above: Performed By: #### H S TROP, CBC, BMP, BNP, PT, PTT #### [address] Monocytes (Bld) [#/Vol] 0.6 10*3/uL Normal 0.0-0.8 [facility] Comment on above: Performed By: #### H S TROP, CBC, BMP, BNP, PT, PTT #### [address] Monocytes/100 WBC (Bld) 19.73 % Normal 0.00-20.00 [facility] Comment on above: Performed By: #### H S TROP, CBC, BMP, BNP, PT, PTT #### [place] [address] [place] Monocytes/100 WBC (Bld) 8.7 % Normal . [facility] Comment on above: Performed By: #### H S TROP, CBC, BMP, BNP, PT, PTT #### [place] [address] [place] Neutrophils (Bld) [#/Vol] 5.2 10*3/uL Normal 1.8-7.7 [facility] Comment on above: Performed By: #### H S TROP, CBC, BMP, BNP, PT, PTT #### [place] [address] [place] Neutrophils/100 WBC (Bld) 69.9 % Normal . [facility] Comment on above: Performed By: #### H S TROP, CBC, BMP, BNP, PT, PTT #### [facility] [address] NRBC% 0.0 /100{WBC} Normal 0-0.5 [facility] Comment on above: Performed By: #### H S TROP, CBC, BMP, BNP, PT, PTT #### [address] Platelet mean volume (Bld) [Entitic vol] 8.3 fL Normal 6.3-10.7 [facility] Comment on above: Performed By: #### H S TROP, CBC, BMP, BNP, PT, PTT #### [address] Platelets (Bld) [#/Vol] 243 10*3/uL Normal 150-450 [facility] Comment on above: Performed By: #### H S TROP, CBC, BMP, BNP, PT, PTT #### [address] RBC (Bld) [#/Vol] 3.54 10*6/uL Low 3.60-5.00 [facility] Comment on above: Performed By: #### H S TROP, CBC, BMP, BNP, PT, PTT #### [address] WBC (Bld) [#/Vol] 7.4 10*3/uL Normal 3.8-11.6 [facility] Comment on above: Performed By: #### H S TROP, CBC, BMP, BNP, PT, PTT #### [address] Creatinine [Mass/volume] in Serum or PlasmaOrdered By: Sharon Farrar on 05-03-2023 Creatinine [Mass/Vol] 1.99 mg/dL 0.60-1.20 [facility] ECG 12 lead ECGon 05-03-2023 ECG 12 lead ECG [facility] [place] [address] [place] [address] Electrocardiograph Report Signed Patient: Leia Amaya MR#: [id number] : 1940 Acct:[id number] Age/Sex: 82 / F ADM Date: 05/03/23 Loc: ER Room: Type: [facility] ER Attending Dr: Ordering Provider: Sharon Farrar APRN Date of Service: 05/03/23 ECG/ECG 12 lead ECG: Recheck/Abnormal Lab/Rx Copies to: Test Reason : Blood Pressure : / mmHG Vent. Rate : 052 BPM Atrial Rate : 052 BPM P-R Int : 162 ms QRS Dur : 104 ms QT Int : 478 ms P-R-T Axes : 074 028 055 degrees QTc Int : 444 ms Sinus bradycardia Cannot rule out Anterior infarct , age undetermined Abnormal ECG No previous ECGs available Confirmed by REILLY MENDOZA DO ([id number]) on 05/03/2023 3:31:17 PM Referred By: Electronically Signed By:REILLY MENDOZA DO Transcribed By: MUS Signed By Reilly Mendoza DO 05/03 1531 Normal [facility] Eosinophils Auto (Bld) [#/Vo l]Ordered By: Sharon Farrar on 05-03-2023 Eosinophils (Bld) [#/Vol] 0.2 10*3/uL 0.0-0.45 [facility] Eosinophils/100 WBC Auto (Bl d)Ordered By: Sharon Farrar on 05-03-2023 Eosinophils/100 WBC (Bld) 2.6 % . [facility] Erythrocyte distribution wid th Auto (RBC) [Ratio]Ordered By: Sharon Farrar on 05-03-2023 Erythrocyte distribution width (RBC) [Ratio] 13.8 % 11.9-15.3 [facility] Glucose [Mass/volume] in Ser um or PlasmaOrdered By: Sharon Farrar on 05-03-2023 Glucose [Mass/Vol] 164 mg/dL 70-100 [facility] Comment on above: ADA recommended refe rence rangeRandom Glucose Reference Range is dependent on time and content of last meal. Glucose of more than 200 mg/dL in a nonstressed, ambulatory subject supports the diagnosis of Diabetes Mellitus. Hematocrit Auto (Bld) [Volum e fraction]Ordered By: Sharon Farrar on 05-03-2023 Hematocrit (Bld) [Volume fraction] 35.2 % 34.0-46.4 [facility] Hemoglobin [Mass/volume] in BloodOrdered By: Sharon Farrar on 05-03-2023 Hemoglobin (Bld) [Mass/Vol] 11.8 g/dL 11.8-15.4 [facility] INR in Platelet poor plasma by Coagulation assayOrdered By: Sharon Farrar on 05-03-2023 INR Coag (PPP) [Relative time] 1.0 {INR} [facility] Comment on above: INR Therapeutic Rang e A) Pre- and Peroperative OAT started two weeks before surgery. NOT HIP SURGERY: 1.5 - 2.5 HIP SURGERY: 2 - 3B) Primary and secondary prevention of venous THROMBOSIS: 2 - 3C) Active venous thrombosis, pulmonary embolismand prevention of recurrent venous thrombosis: 2 - 3D) Prevention of arterial thromboembolismincluding patients with mechanical heart valves: 3 - 4.5 Ketones Auto test strip (U) [Mass/Vol]Ordered By: Sharon Farrar on 05-03-2023 Ketones (U) [Mass/Vol] Negative Negative Fi [facility] Leukocytes [#/volume] correc lana for nucleated erythrocytes in Blood by Automated counOrdered By: Sharon Farrar on 05-03-2023 WBC corrected for nucl RBC Auto (Bld) [#/Vol] 7.4 10*3/uL 3.8-11.6 [facility] Lymphocytes Auto (Bld) [#/Vo l]Ordered By: Sharon Farrar on 05-03-2023 Lymphocytes (Bld) [#/Vol] 1.3 10*3/uL 1.00-4.8 [facility] Lymphocytes/100 WBC Auto (Bl d)Ordered By: Sharon Farrar on 05-03-2023 Lymphocytes/100 WBC (Bld) 17.5 % . [facility] MCH Auto (RBC) [Entitic mass ]Ordered By: Sharon Farrar on 05-03-2023 MCH (RBC) [Entitic mass] 33.4 pg 24.7-34.3 [facility] MCHC Auto (RBC) [Mass/Vol]Or dered By: Sharon Farrar on 05-03-2023 MCHC (RBC) [Mass/Vol] 33.6 g/dL 32.0-35.0 [facility] MCV Auto (RBC) [Entitic vol] Ordered By: Sharon Farrar on 05-03-2023 MCV (RBC) [Entitic vol] 99.4 fL 80-100 [facility] Monocyte distribution width [Entitic volume] in Blood by AutomatedOrdered By: Sharon Farrar on 05-03-2023 Monocyte distribution width Auto (Bld) [Entitic vol] 19.73 % 0.00-20.00 [facility] Monocytes Auto (Bld) [#/Vol] Ordered By: Sharon Farrar on 05-03-2023 Monocytes (Bld) [#/Vol] 0.6 10*3/uL 0.0-0.8 [facility] Monocytes/100 WBC Auto (Bld) Ordered By: Sharon Farrar on 05-03-2023 Monocytes/100 WBC (Bld) 8.7 % . [facility] Natriuretic peptide B [Mass/ Vol]Ordered By: Sharon Farrar on 05-03-2023 Natriuretic peptide B (Bld) [Mass/Vol] 226.0 pg/mL 5-100 [facility] Neutrophils Auto (Bld) [#/Vo l]Ordered By: Sharon Farrar on 05-03-2023 Neutrophils (Bld) [#/Vol] 5.2 10*3/uL 1.8-7.7 [facility] Neutrophils/100 WBC Auto (Bl d)Ordered By: Sharon Farrar on 05-03-2023 Neutrophils/100 WBC (Bld) 69.9 % . [facility] No Panel InformationOrdered By: Sharon Farrar on 05-03-2023 Estimated GFR (CKD-EPI) 24.785 mL/Min [facility] Creatinine Clearance (Chem 33.22 [facility] Nucleated erythrocytes [Pres ence] in Blood by Automated countOrdered By: Sharon Farrar on 05-03-2023 Nucleated RBC Auto Ql (Bld) 0.0 /100{WBC} 0-0.5 [facility] Partial Thromboplastin Timeo n 05-03-2023 aPTT Coag (Bld) [Time] 30.1 s Normal 25.1-36.5 [facility] Comment on above: Result Comment: A he matocrit value greater than 55% may lead to inaccurate results in coagulation testing. Patients having hematocrit values >55% require a special collection tube for coagulation studies. Please contact the laboratory at [phone] for redraw instructions. PERFORMED BY: [place] [address] PATHOLOGIST [employer]EL[employer] KELSY GROSS M.D. Performed By: #### H S TROP, CBC, BMP, BNP, PT, PTT #### [facility] [address] Platelet mean volume Auto (B ld) [Entitic vol]Ordered By: Sharon Farrar on 05-03-2023 Platelet mean volume (Bld) [Entitic vol] 8.3 fL 6.3-10.7 [facility] Platelets Auto (Bld) [#/Vol] Ordered By: Sharon Farrar on 05-03-2023 Platelets (Bld) [#/Vol] 243 10*3/uL 150-450 [facility] Potassium [Moles/volume] in Serum or PlasmaOrdered By: Sharon Farrar on 05-03-2023 Potassium [Moles/Vol] 4.2 mmol/L 3.5-5.1 [facility] Protein Auto test strip (U) [Mass/Vol]Ordered By: Sharon Farrar on 05-03-2023 Protein (U) [Mass/Vol] Negative Negative [facility] Prothrombin Time INRon 05-03 INR Coag (PPP) [Relative time] 1.0 {INR} Normal [facility] Comment on above: Result Comment: INR Therapeutic Range A) Pre- and Peroperative OAT started two weeks before surgery. NOT HIP SURGERY: 1.5 - 2.5 HIP SURGERY: 2 - 3 B) Primary and secondary prevention of venous THROMBOSIS: 2 - 3 C) Active venous thrombosis, pulmonary embolism and prevention of recurrent venous thrombosis: 2 - 3 D) Prevention of arterial thromboembolism including patients with mechanical heart valves: 3 - 4.5 Performed By: #### H S TROP, CBC, BMP, BNP, PT, PTT #### [facility] [address] [place] [id number] [facility] Coag (PPP) [Time] 12.3 s Normal 9.0-12.9 [facility] Comment on above: Result Comment: A he matocrit value greater than 55% may lead to inaccurate results in coagulation testing. Patients having hematocrit values >55% require a special collection tube for coagulation studies. Please contact the laboratory at [phone] for redraw instructions. Performed By: #### H S TROP, CBC, BMP, BNP, PT, PTT #### [facility] [address] [place] [id number] [facility] Prothrombin time (PT)Ordered By: Sharon Farrar on 05-03-2023 PT Coag (PPP) [Time] 12.3 s 9.0-12.9 [facility] Comment on above: A hematocrit value g reater than 55% may lead to inaccurate results in coagulation testing. Patients having hematocrit values >55% require a special collection tube for coagulation studies. Please contact the laboratory at [phone] for redraw instructions. RBC Auto (Bld) [#/Vol]Ordere d By: Sharon Farrar on 05-03-2023 RBC (Bld) [#/Vol] 3.54 10*6/uL 3.60-5.00 [facility] Serum or plasma anion gap de terminationOrdered By: Sharon Farrar on 05-03-2023 Anion gap [Moles/Vol] 19.1 mmol/L 6.0-15.0 [facility] Sodium [Moles/volume] in Ser um or PlasmaOrdered By: Sharon Farrar on 05-03-2023 Sodium [Moles/Vol] 142 mmol/L 136-145 [facility] Troponin I High Sensitivityo n 05-03-2023 Troponin I High Sensitivity 26.1 pg/mL High 0.0-15.0 [facility] Comment on above: Result Comment: PERF ORMED BY: [place] [address] PATHOLOGIST [employer]EL[employer] KELSY GROSS M.D. Performed By: #### H S TROP, CBC, BMP, BNP, PT, PTT #### [facility] [address] [place] [address] Troponin I.cardiac [Mass/vol ume] in Serum or Plasma by Detection limit <= 0.01 ng/Ordered By: Sharon Farrar on 05-03-2023 Troponin I.cardiac DL <= 0.01 ng/mL [Mass/Vol] 26.1 pg/mL 0.0-15.0 [facility] Urea nitrogen [Mass/volume] in Serum or PlasmaOrdered By: Sharon Farrar on 05-03-2023 Urea nitrogen [Mass/Vol] 68 mg/dL 01-29 [facility] Urinalysison 05-03-2023 Appearance (U) Clear Normal Clear [facility] Comment on above: Order Comment: Name Collection Type:: Clean-Voided Midstream Performed By: #### H S TROP, CBC, BMP, BNP, PT, PTT #### [facility] [address] [place] [address] Bilirubin,Urine Negative Normal Negative [facility] Comment on above: Order Comment: Name Collection Type:: Clean-Voided Midstream Performed By: #### H S TROP, CBC, BMP, BNP, PT, PTT #### [facility] [address] [place] [address] Color (U) Yellow Normal Yellow [facility] Comment on above: Order Comment: Name Collection Type:: Clean-Voided Midstream Performed By: #### H S TROP, CBC, BMP, BNP, PT, PTT #### [facility] [address] Glucose Ql (U) Normal Normal Normal [facility] Comment on above: Order Comment: Name Collection Type:: Clean-Voided Midstream Performed By: #### H S TROP, CBC, BMP, BNP, PT, PTT #### [address] Ketones Ql (U) Negative Normal Negative [facility] Comment on above: Order Comment: Name Collection Type:: Clean-Voided Midstream Performed By: #### H S TROP, CBC, BMP, BNP, PT, PTT #### [address] Leukocyte esterase Test strip Ql (U) Negative Normal Negative [facility] Comment on above: Order Comment: Name Collection Type:: Clean-Voided Midstream Performed By: #### H S TROP, CBC, BMP, BNP, PT, PTT #### [address] Nitrite,Urine Negative Normal Negative [facility] Comment on above: Order Comment: Name Collection Type:: Clean-Voided Midstream Performed By: #### H S TROP, CBC, BMP, BNP, PT, PTT #### [address] Occult Blood,Urine Negative Normal Negative [facility] Comment on above: Order Comment: Name Collection Type:: Clean-Voided Midstream Result Comment: PERF ORMED BY: [place] [address] PATHOLOGIST [employer] KELSY GROSS M.D. Performed By: #### H S TROP, CBC, BMP, BNP, PT, PTT #### [address] pH (U) 6.0 [pH] Normal 5.0-9.0 [facility] Comment on above: Order Comment: Name Collection Type:: Clean-Voided Midstream Performed By: #### H S TROP, CBC, BMP, BNP, PT, PTT #### [address] Protein,Urine Negative Normal Negative [facility] Comment on above: Order Comment: Name Collection Type:: Clean-Voided Midstream Performed By: #### H S TROP, CBC, BMP, BNP, PT, PTT #### [address] Specificy [place],Urine 1.015 Normal 1.001-1.03 0 [facility] Comment on above: Order Comment: Name Collection Type:: Clean-Voided Midstream Performed By: #### H S TROP, CBC, BMP, BNP, PT, PTT #### [facility] [address] Urobilinogen,Urine Normal Normal Normal [facility] Comment on above: Order Comment: Name Collection Type:: Clean-Voided Midstream Performed By: #### H S TROP, CBC, BMP, BNP, PT, PTT #### [facility] [address] Urine appearanceOrdered By: Sharon Farrar on 05-03-2023 Appearance (U) Clear Clear [facility] Urine colorOrdered By: Jeanie Farrar on 05-03-2023 Color (U) Yellow Yellow [facility] Urine glucose measurement by automated test strip (mass/volume)Ordered By: Sharon Farrar on 05-03-2023 Glucose Auto test strip (U) [Mass/Vol] Normal mg/dL Normal [facility] Urine hemoglobin detection b y automated test stripOrdered By: Sharon Farrar on 05-03-2023 Hemoglobin Auto test strip Ql (U) Negative Negative [facility] Urine leukocyte esterase det ection by automated test stripOrdered By: Sharon Farrar on 05-03-2023 Leukocyte esterase Auto test strip Ql (U) Negative Negative [facility] Urine nitrite detection by a utomated test stripOrdered By: Sharon Farrar on 05-03-2023 Nitrite Auto test strip Ql (U) Negative Negative [facility] Urobilinogen Auto test strip (U) [Mass/Vol]Ordered By: Sharon Farrar on 05-03-2023 Urobilinogen (U) [Mass/Vol] Normal mg/dL Normal [facility] WBC Auto (Bld) [#/Vol]Ordere d By: Sharon Farrar on 05-03-2023 WBC (Bld) [#/Vol] 7.4 10*3/uL 3.8-11.6 [facility] XR chest 2V*on 05-03-2023 XR chest 2V* [facility] [place] [address] [place] [address] XRay Report Signed Patient: Leia Amaya MR#: [id number] : 1940 Acct:[id number] Age/Sex: 82 / F ADM Date: 05/03/23 Loc: ER Room: Type: [facility] ER Attending Dr: Copies to: Sharon Farrar APRN Ordering Provider: Sharon Farrar APRN Date of Service: 05/03/23 XR/XR chest 2V*: Recheck/Abnormal Lab/Rx Plain film chest 2 view HISTORY: Worsening kidney function. COMPARISON: None FINDINGS: SUPPORT DEVICES: None POSTSURGICAL CHANGES: None HEART: Borderline cardiomegaly. PULMONARY BRENT: Within normal limits MEDIASTINUM: Unremarkable LUNGS AND PLEURA: No acute lung process, pleural effusion or pneumothorax identified. BONY STRUCTURES: Thoracic spondylosis. ADDITIONAL FINDINGS None XR/XR chest 2V* IMPRESSION: No acute process. Borderline cardiomegaly. Impression dictated by: Sj Lee M.D.05/03/2023 3:12 PM Dictation Location: [place] [address] Transcribed By: [facility] 05/03/231511 Dictated By: Sj Lee DO 05/03/231510 Signed By: 05/03/23 151 Normal [facility] pH Auto test strip (U)Ordere d By: Sharon Farrar on 05-03-2023 pH (U) 1.015 [pH] 1.001-1.03 0 [facility] pH (U) 6.0 [pH] 5.0-9.0 [facility] Albumin [Mass/volume] in Ser um or Plasma by Bromocresol green (BCG) dye binding methoOrdered By: Bette Diaz on 03-25-2023 Albumin BCG dye [Mass/Vol] 4.0 g/dL 3.5-5.7 [facility] Automated erythrocytes count in urine sediment (number/area)Ordered By: Bette Diaz on 03-25-2023 RBC Auto (Urine sed) [#/Area] None seen [HPF] 0-4 [facility] Automated leukocytes count i n urine sediment (number/area)Ordered By: Bette Diaz on 03-25-2023 WBC Auto (Urine sed) [#/Area] 0-1 [HPF] 0-4 [facility] Bilirubin Test strip Ql (U)O rdered By: Bette Diaz on 03-25-2023 Bilirubin Ql (U) Negative Negative [facility] Calcium [Mass/volume] in Ser um or PlasmaOrdered By: Bette Diaz on 03-25-2023 Calcium [Mass/Vol] 9.3 mg/dL 8.6-10.3 [facility] Carbon dioxide, total [Moles /volume] in Serum or PlasmaOrdered By: Bette Daiz on 03-25-2023 CO2 [Moles/Vol] 29.2 mmol/L 21.0-31.0 [facility] Chloride [Moles/volume] in S ganesh or PlasmaOrdered By: Bette Diaz on 03-25-2023 Chloride [Moles/Vol] 103 mmol/L 98-107 [facility] Color Auto (U)Ordered By: Ab jordy Diaz on 03-25-2023 Color (U) Yellow Yellow [facility] Creatinine [Mass/volume] in Serum or PlasmaOrdered By: Bette Diaz on 03-25-2023 Creatinine [Mass/Vol] 1.23 mg/dL 0.60-1.20 [facility] Creatinine [Mass/volume] in UrineOrdered By: Bette Diaz on 03-25-2023 Creatinine (U) [Mass/Vol] 39.0 mg/dL 11.0-20.0 [facility] Dipstick and Microscopicon 0 03-25-2023 Appearance (U) Clear Normal Clear [facility] Comment on above: Order Comment: Reaso n for Exam Chronic kidney disease, stage III (moderate);Hypertensive ch Name Collection Type:: Clean-Voided Midstream Performed By: #### A DDONUAPLUS #### [facility] [address] [place] [address] Bacteria,Urine 1+ High None Seen [facility] Comment on above: Order Comment: Reaso n for Exam Chronic kidney disease, stage III (moderate);Hypertensive ch Name Collection Type:: Clean-Voided Midstream Performed By: #### A DDONUAPLUS #### [facility] [address] [place] [address] [place] Bilirubin,Urine Negative Normal Negative [facility] Comment on above: Order Comment: Reaso n for Exam Chronic kidney disease, stage III (moderate);Hypertensive ch Name Collection Type:: Clean-Voided Midstream Performed By: #### A DDONUAPLUS #### [facility] [address] [place] [address] [place] Color (U) Yellow Normal Yellow [facility] Comment on above: Order Comment: Reaso n for Exam Chronic kidney disease, stage III (moderate);Hypertensive ch Name Collection Type:: Clean-Voided Midstream Performed By: #### A DDONUAPLUS #### [facility] [address] [place] [address] [place] Glucose Ql (U) Normal Normal Normal [facility] Comment on above: Order Comment: Reaso n for Exam Chronic kidney disease, stage III (moderate);Hypertensive ch Name Collection Type:: Clean-Voided Midstream Performed By: #### A DDONUAPLUS #### [facility] [address] [place] [address] [place] Hyaline Casts,Urine 0-8 Normal 0-8 [facility] Comment on above: Order Comment: Reaso n for Exam Chronic kidney disease, stage III (moderate);Hypertensive ch Name Collection Type:: Clean-Voided Midstream Result Comment: PERF ORMED BY: [place] [address] PATHOLOGIST [employer] KELSY GROSS M.D. Performed By: #### A DDONUAPLUS #### [facility] [address] [place] [address] [place] Ketones Ql (U) Negative Normal Negative [facility] Comment on above: Order Comment: Reaso n for Exam Chronic kidney disease, stage III (moderate);Hypertensive ch Name Collection Type:: Clean-Voided Midstream Performed By: #### A DDONUAPLUS #### [facility] [address] [place] [address] Leukocyte esterase Test strip Ql (U) 1+ High Negative [facility] Comment on above: Order Comment: Reaso n for Exam Chronic kidney disease, stage III (moderate);Hypertensive ch Name Collection Type:: Clean-Voided Midstream Performed By: #### A DDONUAPLUS #### [facility] [address] [place] [address] [place] Nitrite,Urine Negative Normal Negative [facility] Comment on above: Order Comment: Reaso n for Exam Chronic kidney disease, stage III (moderate);Hypertensive ch Name Collection Type:: Clean-Voided Midstream Performed By: #### A DDONUAPLUS #### [address] Occult Blood,Urine Negative Normal Negative [facility] Comment on above: Order Comment: Reaso n for Exam Chronic kidney disease, stage III (moderate);Hypertensive ch Name Collection Type:: Clean-Voided Midstream Performed By: #### A DDONUAPLUS #### [address] pH (U) 6.0 [pH] Normal 5.0-9.0 [facility] Comment on above: Order Comment: Reaso n for Exam Chronic kidney disease, stage III (moderate);Hypertensive ch Name Collection Type:: Clean-Voided Midstream Performed By: #### A DDONUAPLUS #### [facility] [address] [place] [address] [place] Protein,Urine Negative Normal Negative [facility] Comment on above: Order Comment: Reaso n for Exam Chronic kidney disease, stage III (moderate);Hypertensive ch Name Collection Type:: Clean-Voided Midstream Performed By: #### A DDONUAPLUS #### [facility] [address] [place] [address] [place] RBC,Urine None Seen Normal 0-4 [facility] Comment on above: Order Comment: Reaso n for Exam Chronic kidney disease, stage III (moderate);Hypertensive ch Name Collection Type:: Clean-Voided Midstream Performed By: #### A DDONUAPLUS #### [address] Specificy [place],Urine 1.010 Normal 1.001-1.03 0 [facility] Comment on above: Order Comment: Reaso n for Exam Chronic kidney disease, stage III (moderate);Hypertensive ch Name Collection Type:: Clean-Voided Midstream Performed By: #### A DDONUAPLUS #### [address] Squamous Epithelial Cell,Urine 3-4 High 0-2 [facility] Comment on above: Order Comment: Reaso n for Exam Chronic kidney disease, stage III (moderate);Hypertensive ch Name Collection Type:: Clean-Voided Midstream Performed By: #### A DDONUAPLUS #### [address] Urobilinogen,Urine Normal Normal Normal [facility] Comment on above: Order Comment: Reaso n for Exam Chronic kidney disease, stage III (moderate);Hypertensive ch Name Collection Type:: Clean-Voided Midstream Performed By: #### A DDONUAPLUS #### [address] WBC LM.HPF (Urine sed) [#/Area] 0 /[HPF] Normal 0-4 [facility] Comment on above: Order Comment: Reaso n for Exam Chronic kidney disease, stage III (moderate);Hypertensive ch Name Collection Type:: Clean-Voided Midstream Performed By: #### A DDONUAPLUS #### [address] Erythrocyte distribution wid th Auto (RBC) [Ratio]Ordered By: Bette Diaz on 03-25-2023 Erythrocyte distribution width (RBC) [Ratio] 13.9 % 11.9-15.3 [facility] Ferritinon 03-25-2023 Ferritin [Mass/Vol] 137.4 ng/mL Normal 11.0-306.8 [facility] Comment on above: Order Comment: Reaso n for Exam Chronic kidney disease, stage III (moderate);Hypertensive ch Performed By: #### H S TROP, CBC, BMP, BNP, PT, PTT #### [facility] [address] [place] [address] [place] Ferritin [Mass/volume] in Se rum or PlasmaOrdered By: Bette Diaz on 03-25-2023 Ferritin [Mass/Vol] 137.4 ng/mL 11.0-306.8 [facility] Glucose [Mass/volume] in Ser um or PlasmaOrdered By: Bette Diaz on 03-25-2023 Glucose [Mass/Vol] 133 mg/dL 70-100 [facility] Comment on above: ADA recommended refe rence rangeRandom Glucose Reference Range is dependent on time and content of last meal. Glucose of more than 200 mg/dL in a nonstressed, ambulatory subject supports the diagnosis of Diabetes Mellitus. Hematocrit Auto (Bld) [Volum e fraction]Ordered By: Bette Diaz on 03-25-2023 Hematocrit (Bld) [Volume fraction] 35.1 % 34.0-46.4 [facility] Hemoglobin [Mass/volume] in BloodOrdered By: Bette Diaz on 03-25-2023 Hemoglobin (Bld) [Mass/Vol] 11.7 g/dL 11.8-15.4 [facility] Hemogram CBC Without Diffon 03-25-2023 Erythrocyte distribution width (RBC) [Ratio] 13.9 % Normal 11.9-15.3 [facility] Comment on above: Order Comment: Reaso n for Exam Chronic kidney disease, stage III (moderate);Hypertensive ch Performed By: #### C BCNO #### [facility] [address] Hematocrit (Bld) [Volume fraction] 35.1 % Normal 34.0-46.4 [facility] Comment on above: Order Comment: Reaso n for Exam Chronic kidney disease, stage III (moderate);Hypertensive ch Performed By: #### C BCNO #### [facility] [address] Hemoglobin (Bld) [Mass/Vol] 11.7 g/dL Low 11.8-15.4 [facility] Comment on above: Order Comment: Reaso n for Exam Chronic kidney disease, stage III (moderate);Hypertensive ch Performed By: #### C BCNO #### [facility] [address] MCH (RBC) [Entitic mass] 33.1 pg Normal 24.7-34.3 [facility] Comment on above: Order Comment: Reaso n for Exam Chronic kidney disease, stage III (moderate);Hypertensive ch Performed By: #### C BCNO #### [facility] [address] MCV (RBC) [Entitic vol] 99.0 fL Normal 80-100 [facility] Comment on above: Order Comment: Reaso n for Exam Chronic kidney disease, stage III (moderate);Hypertensive ch Performed By: #### C BCNO #### [address] Mean Corpuscular HGB Conc 33.4 g/dL Normal 32.0-35.0 [facility] Comment on above: Order Comment: Reaso n for Exam Chronic kidney disease, stage III (moderate);Hypertensive ch Performed By: #### C BCNO #### [address] Platelet mean volume (Bld) [Entitic vol] 8.4 fL Normal 6.3-10.7 [facility] Comment on above: Order Comment: Reaso n for Exam Chronic kidney disease, stage III (moderate);Hypertensive ch Result Comment: PERF ORMED BY: [place] [address] PATHOLOGIST [employer] KELSY GROSS M.D. Performed By: #### C BCNO #### [address] Platelets (Bld) [#/Vol] 224 10*3/uL Normal 150-450 [facility] Comment on above: Order Comment: Reaso n for Exam Chronic kidney disease, stage III (moderate);Hypertensive ch Performed By: #### C BCNO #### [address] RBC (Bld) [#/Vol] 3.54 10*6/uL Low 3.60-5.00 [facility] Comment on above: Order Comment: Reaso n for Exam Chronic kidney disease, stage III (moderate);Hypertensive ch Performed By: #### C BCNO #### [facility] [address] WBC (Bld) [#/Vol] 6.2 10*3/uL Normal 3.8-11.6 [facility] Comment on above: Order Comment: Reaso n for Exam Chronic kidney disease, stage III (moderate);Hypertensive ch Performed By: #### C BCNO #### [facility] [address] [place] [address] Iron [Mass/volume] in Serum or PlasmaOrdered By: Bette Diaz on 03-25-2023 Iron [Mass/Vol] 107 ug/dL 50-212 [facility] Iron and TIBC Profileon 03-08 % Iron Saturation 34.1 % Normal 20-50 [facility] Comment on above: Order Comment: Reaso n for Exam Chronic kidney disease, stage III (moderate);Hypertensive ch Performed By: #### H S TROP, CBC, BMP, BNP, PT, PTT #### [facility] [address] [place] [address] Iron [Mass/Vol] 107 ug/dL Normal 50-212 [facility] Comment on above: Order Comment: Reaso n for Exam Chronic kidney disease, stage III (moderate);Hypertensive ch Performed By: #### H S TROP, CBC, BMP, BNP, PT, PTT #### [facility] [address] [place], [place] [id number] [facility] Total Iron Binding Capacity 314 ug/dL Normal 255-450 [facility] Comment on above: Order Comment: Reaso n for Exam Chronic kidney disease, stage III (moderate);Hypertensive ch Performed By: #### H S TROP, CBC, BMP, BNP, PT, PTT #### [facility] [address] [place], [place] [id number] [facility] Transferrin [Mass/Vol] 224 mg/dL Normal 203-362 [facility] Comment on above: Order Comment: Reaso n for Exam Chronic kidney disease, stage III (moderate);Hypertensive ch Performed By: #### H S TROP, CBC, BMP, BNP, PT, PTT #### [facility] [address] [place] [id number] [facility] Iron binding capacity [Mass/ volume] in Serum or PlasmaOrdered By: Bette Diaz on 03-25-2023 Iron binding capacity [Mass/Vol] 314 ug/dL 255-450 [facility] Iron saturation [Mass Fracti on] in Serum or PlasmaOrdered By: Bette Diaz on 03-25-2023 Iron saturation [Mass fraction] 34.1 % 20-50 [facility] Ketones Auto test strip (U) [Mass/Vol]Ordered By: Bette Diaz on 03-25-2023 Ketones (U) [Mass/Vol] Negative Negative Fi [facility] - UrinalysisOrder ed By: Bette Diaz on 03-25-2023 Hyaline casts LM Ql (Urine sed) 0-8 [LPF] 0-8 [facility] Leukocytes [#/volume] correc lana for nucleated erythrocytes in Blood by Automated counOrdered By: Bette Diaz on 03-25-2023 WBC corrected for nucl RBC Auto (Bld) [#/Vol] 6.2 10*3/uL 3.8-11.6 [facility] MCH Auto (RBC) [Entitic mass ]Ordered By: Bette Diaz on 03-25-2023 MCH (RBC) [Entitic mass] 33.1 pg 24.7-34.3 [facility] MCHC Auto (RBC) [Mass/Vol]Or dered By: Bette Diaz on 03-25-2023 MCHC (RBC) [Mass/Vol] 33.4 g/dL 32.0-35.0 [facility] MCV Auto (RBC) [Entitic vol] Ordered By: Bette Diaz on 03-25-2023 MCV (RBC) [Entitic vol] 99.0 fL 80-100 [facility] Magnesiumon 03-25-2023 Magnesium [Mass/Vol] 2.0 mg/dL Normal 1.9-2.7 [facility] Comment on above: Order Comment: Reaso n for Exam Chronic kidney disease, stage III (moderate);Hypertensive ch Performed By: #### H S TROP, CBC, BMP, BNP, PT, PTT #### [facility] [address] [place] [address] [place] Magnesium [Mass/volume] in S ganesh or PlasmaOrdered By: Bette Diaz on 03-25-2023 Magnesium [Mass/Vol] 2.0 mg/dL 1.9-2.7 [facility] Nitrite Test strip Ql (U)Ord ered By: Bette Diaz on 03-25-2023 Nitrite Ql (U) Negative Negative [facility] No Panel InformationOrdered By: Bette Diaz on 03-25-2023 Estimated GFR (CKD-EPI) 44.149 mL/Min [facility] Creatinine Clearance (Chem N/A [facility] Parathyrin.intact [Mass/volu me] in Serum or PlasmaOrdered By: Bette Diaz on 03-25-2023 Parathyrin.intact [Mass/Vol] 126.3 pg/mL [facility] Parathyroid Hormone Intacton 03-25-2023 Parathyroid Hormone Intact 126.3 pg/mL High [facility] Comment on above: Order Comment: Reaso n for Exam Chronic kidney disease, stage III (moderate);Hypertensive ch Result Comment: PERF ORMED BY: [place] [address] PATHOLOGIST [employer] KELSY GROSS M.D. Performed By: #### H S TROP, CBC, BMP, BNP, PT, PTT #### [facility] [address] [place] [address] [place] Phosphate [Mass/volume] in S ganesh or PlasmaOrdered By: Bette Diaz on 03-25-2023 Phosphate [Mass/Vol] 3.7 mg/dL 3.7-7.2 [facility] Platelet mean volume Auto (B ld) [Entitic vol]Ordered By: Bette Diaz on 03-25-2023 Platelet mean volume (Bld) [Entitic vol] 8.4 fL 6.3-10.7 [facility] Platelets Auto (Bld) [#/Vol] Ordered By: Bette Diaz on 03-25-2023 Platelets (Bld) [#/Vol] 224 10*3/uL 150-450 [facility] Potassium [Moles/volume] in Serum or PlasmaOrdered By: Bette Diaz on 03-25-2023 Potassium [Moles/Vol] 4.2 mmol/L 3.5-5.1 [facility] Protein Auto test strip (U) [Mass/Vol]Ordered By: Bette Diaz on 03-25-2023 Protein (U) [Mass/Vol] Negative Negative Fi [facility] Protein Creat Ratio Ur Rando mon 03-25-2023 Creatinine, Urine (Random) 39.0 mg/dL High 11.0-20.0 [facility] Comment on above: Order Comment: Reaso n for Exam Chronic kidney disease, stage III (moderate);Hypertensive ch Performed By: #### P ROCRERAT #### [facility] [address] [place] [address] Protein (U) [Mass/Vol] 7 mg/dL Normal 0-9 [facility] Comment on above: Order Comment: Reaso n for Exam Chronic kidney disease, stage III (moderate);Hypertensive ch Performed By: #### P ROCRERAT #### [facility] [address] [place] [address] Urine Protein/Creatinine Ratio 179 mg/g{Cre} Normal 0-200 [facility] Comment on above: Order Comment: Reaso n for Exam Chronic kidney disease, stage III (moderate);Hypertensive ch Result Comment: PERF ORMED BY: [place] [address] PATHOLOGIST [employer] KELSY GROSS M.D. Performed By: #### P ROCRERAT #### [facility] [address] [place] [address] [place] Protein [Mass/volume] in Uri neOrdered By: Bette Diaz on 03-25-2023 Protein (U) [Mass/Vol] 7 mg/dL 0-9 [facility] RBC Auto (Bld) [#/Vol]Ordere d By: Bette Diaz on 03-25-2023 RBC (Bld) [#/Vol] 3.54 10*6/uL 3.60-5.00 [facility] Renal Function Panelon 03-25 Albumin [Mass/Vol] 4.0 g/dL Normal 3.5-5.7 [facility] Comment on above: Order Comment: Reaso n for Exam Chronic kidney disease, stage III (moderate);Hypertensive ch Performed By: #### H S TROP, CBC, BMP, BNP, PT, PTT #### [facility] [address] Anion gap [Moles/Vol] 12.0 mmol/L Normal 6.0-15.0 [facility] Comment on above: Order Comment: Reaso n for Exam Chronic kidney disease, stage III (moderate);Hypertensive ch Performed By: #### H S TROP, CBC, BMP, BNP, PT, PTT #### [facility] [address] Calcium [Mass/Vol] 9.3 mg/dL Normal 8.6-10.3 [facility] Comment on above: Order Comment: Reaso n for Exam Chronic kidney disease, stage III (moderate);Hypertensive ch Performed By: #### H S TROP, CBC, BMP, BNP, PT, PTT #### [facility] [address] Chloride [Moles/Vol] 103 mmol/L Normal 98-107 [facility] Comment on above: Order Comment: Reaso n for Exam Chronic kidney disease, stage III (moderate);Hypertensive ch Performed By: #### H S TROP, CBC, BMP, BNP, PT, PTT #### [facility] [address] CO2 [Moles/Vol] 29.2 mmol/L Normal 21.0-31.0 [facility] Comment on above: Order Comment: Reaso n for Exam Chronic kidney disease, stage III (moderate);Hypertensive ch Performed By: #### H S TROP, CBC, BMP, BNP, PT, PTT #### [facility] [address] Creatinine [Mass/Vol] 1.23 mg/dL High 0.60-1.20 [facility] Comment on above: Order Comment: Reaso n for Exam Chronic kidney disease, stage III (moderate);Hypertensive ch Performed By: #### H S TROP, CBC, BMP, BNP, PT, PTT #### [facility] [address] [place] [address] [place] GFR/1.73 sq M.predicted MDRD (S/P/Bld) [Vol rate/Area] 44.149 mL/min/{1.73_m2} Normal [facility] Comment on above: Order Comment: Reaso n for Exam Chronic kidney disease, stage III (moderate);Hypertensive ch Performed By: #### H S TROP, CBC, BMP, BNP, PT, PTT #### [facility] [address] Glucose [Mass/Vol] 133 mg/dL High 70-100 [facility] Comment on above: Order Comment: Reaso n for Exam Chronic kidney disease, stage III (moderate);Hypertensive ch Result Comment: [facility] Glucose Reference Range is dependent on time and content of last meal. Glucose of more than 200 mg/dL in a nonstressed, ambulatory subject supports the diagnosis of Diabetes Mellitus. ADA recommended reference range Performed By: #### H S TROP, CBC, BMP, BNP, PT, PTT #### [facility] [address] [place] [address] [place] Phosphate [Mass/Vol] 3.7 mg/dL Normal 3.7-7.2 [facility] Comment on above: Order Comment: Reaso n for Exam Chronic kidney disease, stage III (moderate);Hypertensive ch Performed By: #### H S TROP, CBC, BMP, BNP, PT, PTT #### [facility] [address] [place] [address] [place] Potassium [Moles/Vol] 4.2 mmol/L Normal 3.5-5.1 [facility] Comment on above: Order Comment: Reaso n for Exam Chronic kidney disease, stage III (moderate);Hypertensive ch Performed By: #### H S TROP, CBC, BMP, BNP, PT, PTT #### [facility] [address] Sodium [Moles/Vol] 140 mmol/L Normal 136-145 [facility] Comment on above: Order Comment: Reaso n for Exam Chronic kidney disease, stage III (moderate);Hypertensive ch Performed By: #### H S TROP, CBC, BMP, BNP, PT, PTT #### [facility] [address] Urea nitrogen [Mass/Vol] 29 mg/dL High 7-25 [facility] Comment on above: Order Comment: Reaso n for Exam Chronic kidney disease, stage III (moderate);Hypertensive ch Performed By: #### H S TROP, CBC, BMP, BNP, PT, PTT #### [facility] [address] Serum or plasma anion gap de terminationOrdered By: Bette Joe on 03-25-2023 Anion gap [Moles/Vol] 12.0 mmol/L 6.0-15.0 [facility] Sodium [Moles/volume] in Ser um or PlasmaOrdered By: Bette Joe on 03-25-2023 Sodium [Moles/Vol] 140 mmol/L 136-145 [facility] Specific gravity Auto test s trip (U) [Rel density]Ordered By: Bette Joe on 03-25-2023 Specific gravity (U) [Rel density] 1.010 1.001-1.03 0 [facility] Squamous epithelial cells de tection in urine sediment by light microscopyOrdered By: Bette Joe on 03-25-2023 Epithelial cells.squamous LM Ql (Urine sed) 3-4 [HPF] 0-2 [facility] Transferrin [Mass/volume] in Serum or PlasmaOrdered By: Bette Joe on 03-25-2023 Transferrin [Mass/Vol] 224 mg/dL 203-362 [facility] Urate [Mass/volume] in Serum or PlasmaOrdered By: Bette Joe on 03-25-2023 Urate [Mass/Vol] 8.4 mg/dL 2.3-6.6 [facility] Urea nitrogen [Mass/volume] in Serum or PlasmaOrdered By: Bette Diaz on 03-25-2023 Urea nitrogen [Mass/Vol] 29 mg/dL 7-25 [facility] Uric Acidon 03-25-2023 Urate [Mass/Vol] 8.4 mg/dL High 2.3-6.6 [facility] Comment on above: Order Comment: Reaso n for Exam Chronic kidney disease, stage III (moderate);Hypertensive ch Performed By: #### H S TROP, CBC, BMP, BNP, PT, PTT #### [facility] [address] Urine bacteria detection by automated methodOrdered By: Bette Diaz on 03-25-2023 Bacteria Auto Ql (U) 1+ None Seen [facility] Urine clarity by refractomet ry automatedOrdered By: Bette Diaz on 03-25-2023 Clarity Refractometry automated (U) Clear Clear [facility] Urine glucose measurement by automated test strip (mass/volume)Ordered By: Bette Diaz on 03-25-2023 Glucose Auto test strip (U) [Mass/Vol] Normal mg/dL Normal [facility] Urine hemoglobin detection b y automated test stripOrdered By: Bette Diaz on 03-25-2023 Hemoglobin Auto test strip Ql (U) Negative Negative [facility] Urine leukocyte esterase det ection by automated test stripOrdered By: Bette Diaz on 03-25-2023 Leukocyte esterase Auto test strip Ql (U) 1+ Negative [facility] Urine protein/creatinine rat ioOrdered By: Bette Diaz on 03-25-2023 Protein/Creatinine (U) [Ratio] 179 mg/g{Cre} 0-200 [facility] Urobilinogen Auto test strip (U) [Mass/Vol]Ordered By: Bette Diaz on 03-25-2023 Urobilinogen (U) [Mass/Vol] Normal mg/dL Normal [facility] Vitamin D 25 Hydroxy Totalon 03-25-2023 Vitamin D 25 Hydroxy Total 36.0 ng/mL Normal 30-100 [facility] Comment on above: Order Comment: Reaso n for Exam Chronic kidney disease, stage III (moderate);Hypertensive ch Result Comment: GLORIA MIN D STATUS 25(OH)VITAMIN D RANGE (ng/mL) Deficient <20 Insufficient 20 to <30 Sufficient 30 to 100 Reference: Sarah Jacinto, Toshia CHRISTINE, et al. Evaluation,treatment, and prevention of vitamin D deficiency; an Endocrine Society clinical practice guideline. JCEM. 2010; 96(7):1911-. PERFORMED BY: [place] [address] PATHOLOGIST [employer] KELSY GROSS M.D. Performed By: #### H S TROP, CBC, BMP, BNP, PT, PTT #### [address] Vitamin D+Metabolites [Mass/ volume] in Serum or PlasmaOrdered By: Bette Diaz on 03-25-2023 Vitamin D+Metabolites [Mass/Vol] 36.0 ng/mL 30-100 [facility] Comment on above: VITAMIN D STATUS 25( OH)VITAMIN D RANGE (ng/mL) Deficient <20 Insufficient 20 to <30Sufficient 30 to 100Reference: Sraah Jacinto, Toshia CHRISTINE, et al. Evaluation,treatment, and prevention of vitamin D deficiency; an Endocrine Society clinical practice guideline. JCEM. 2010; 96(7):1911-30. pH Auto test strip (U)Ordere d By: Bette Diaz on 03-25-2023 pH (U) 6.0 [pH] 5.0-9.0 [facility] Body fluid albumin measureme nt (mass/volume)Ordered By: Bette Diaz on 04-25-2022 Albumin (Body fld) [Mass/Vol] 3.6 g/dL 3.2-5.[address] [facility] [address] biopsyOrdered By: Mary cat on 04-25-2022 Transferrin [Mass/Vol] 221 mg/dL 180-380 Fi [facility] Creatinine and Glomerular fi ltration rate.predicted panel (S/P/Bld)Ordered By: Bette Diaz on 04-25-2022 Creatinine [Mass/Vol] 1.19 mg/dL 0.44-1.03 [facility] Erythrocyte distribution wid th Auto (RBC) [Ratio]Ordered By: Bette Diaz on 04-25-2022 Erythrocyte distribution width (RBC) [Ratio] 14.4 % 11.9-15.3 [facility] Estimated glomerular filtrat ion rate (GFR) non- AmericanOrdered By: Bette Diaz on 04-25-2022 GFR/1.73 sq M.predicted among non-blacks MDRD (S/P/Bld) [Vol rate/Area] 44 mL/Min [facility] Ferritin [Mass/volume] in Se rum or PlasmaOrdered By: Bette Diaz on 04-25-2022 Ferritin [Mass/Vol] 109.6 ng/mL 11-306.8 [facility] Hematocrit Auto (Bld) [Volum e fraction]Ordered By: Bette Diaz on 04-25-2022 Hematocrit (Bld) [Volume fraction] 35.6 % 34.0-46.4 [facility] Hemoglobin [Mass/volume] in BloodOrdered By: Bette Joe on 04-25-2022 Hemoglobin (Bld) [Mass/Vol] 11.7 g/dL 11.8-15.4 [facility] Iron [Mass/volume] in Serum or PlasmaOrdered By: Bette Joe on 04-25-2022 Iron [Mass/Vol] 62 ug/dL 40-150 [facility] Iron binding capacity [Mass/ volume] in Serum or PlasmaOrdered By: Bette Joe on 04-25-2022 Iron binding capacity [Mass/Vol] 309 ug/dL 255-450 [facility] Iron saturation [Mass Fracti on] in Serum or PlasmaOrdered By: Bette Joe on 04-25-2022 Iron saturation [Mass fraction] 20.0 % 20-50 [facility] - Chemistry and C hemistry - challengeOrdered By: Bette Joe on 04-25-2022 Magnesium [Mass/Vol] 1.8 mg/dL 1.6-2.6 [facility] MCH Auto (RBC) [Entitic mass ]Ordered By: Bette Diaz on 04-25-2022 MCH (RBC) [Entitic mass] 32.0 pg 24.7-34.3 [facility] MCHC Auto (RBC) [Mass/Vol]Or dered By: Bette Diaz on 04-25-2022 MCHC (RBC) [Mass/Vol] 32.8 g/dL 32.0-35.0 [facility] MCV Auto (RBC) [Entitic vol] Ordered By: Bette Diaz on 04-25-2022 MCV (RBC) [Entitic vol] 97.4 fL 80-100 [facility] No Panel InformationOrdered By: Bette Diaz on 04-25-2022 25-Hydroxy Vitamin D Total 47.8 ng/mL 30-100 [facility] Comment on above: VITAMIN D STATUS 25( [place])VITAMIN D RANGE (ng/mL) Deficient <20 Insufficient 20 to <30Sufficient 30 to 100Reference: Kristy MF,Sarah NC, Toshia CHRISTINE, et al. Evaluation,treatment, and prevention of vitamin D deficiency; an Endocrine Society clinical practice guideline. JCEM. 2010; 96(7):1911-30. Estimated GFR () 53 mL/Min [facility] Comment on above: GFR estimated refere nce range: According to KDOQI guidelines, <60 ml/min/1.73m2 is sufficient to diagnose a patient with chronic kidney disease. Pharmacy Creatinine Clearance (Chem N/A [facility] Phosphate [Mass/volume] in S ganesh or PlasmaOrdered By: Bette Diaz on 04-25-2022 Phosphate [Mass/Vol] 3.5 mg/dL 2.5-4.6 [facility] Platelet mean volume Auto (B ld) [Entitic vol]Ordered By: Bette Diaz on 04-25-2022 Platelet mean volume (Bld) [Entitic vol] 8.5 fL 6.3-10.7 [facility] Platelets Auto (Bld) [#/Vol] Ordered By: Bette Diaz on 04-25-2022 Platelets (Bld) [#/Vol] 234 10*3/uL 150-450 [facility] RBC Auto (Bld) [#/Vol]Ordere d By: Bette Diaz on 04-25-2022 RBC (Bld) [#/Vol] 3.66 10*6/uL 3.60-5.00 [facility] Serum or plasma anion gap de terminationOrdered By: Bette Diaz on 04-25-2022 Anion gap [Moles/Vol] 11.4 mmol/L 6.0-15.0 [facility] Serum or plasma calcium shyam urement (mass/volume)Ordered By: Bette Diaz on 04-25-2022 Calcium [Mass/Vol] 9.0 mg/dL 8.2-10.2 [facility] Serum or plasma chloride kathy surement (moles/volume)Ordered By: Bette Diaz on 04-25-2022 Chloride [Moles/Vol] 102 mmol/L 95-114 [facility] Serum or plasma glucose shyam urement (mass/volume)Ordered By: Bette Diaz on 04-25-2022 Glucose [Mass/Vol] 123 mg/dL 70-100 [facility] Comment on above: ADA recommended refe rence rangeRandom Glucose Reference Range is dependent on time and content of last meal. Glucose of more than 200 mg/dL in a nonstressed, ambulatory subject supports the diagnosis of Diabetes Mellitus. Serum or plasma intact parat hyroid hormone measurement (mass/volume)Ordered By: Bette Diaz on 04-25-2022 Parathyrin.intact [Mass/Vol] 120.0 pg/mL 12-88 [facility] Serum or plasma potassium me asurement (moles/volume)Ordered By: Bette Diaz on 04-25-2022 Potassium [Moles/Vol] 3.5 mmol/L 3.5-5.1 [facility] Serum or plasma sodium measu rement (moles/volume)Ordered By: Bette Diaz on 04-25-2022 Sodium [Moles/Vol] 136 mmol/L 136-146 [facility] Serum or plasma total carbon dioxide measurement (moles/volume)Ordered By: Bette Diaz on 04-25-2022 CO2 [Moles/Vol] 26.1 mmol/L 22.0-30.0 [facility] Serum or plasma urea nitroge n measurement (mass/volume)Ordered By: Bette Diaz on 04-25-2022 Urea nitrogen [Mass/Vol] 23 mg/dL 9- [facility] Serum or plasma uric acid me asurement (mass/volume)Ordered By: Bette Diaz on 04-25-2022 Urate [Mass/Vol] 7.3 mg/dL 2.6-7.2 [facility] WBC Auto (Bld) [#/Vol]Ordere d By: Bette Diaz on 04-25-2022 WBC (Bld) [#/Vol] 5.9 10*3/uL 3.8-11.6 [facility] Albumin [Mass/volume] in Ser um or PlasmaOrdered By: Bette Diaz on 03-26-2022 Albumin [Mass/Vol] 3.7 g/dL 3.2-5.5 [facility] Creatinine and Glomerular fi ltration rate.predicted panel (S/P/Bld)Ordered By: Bette Diaz on 03-26-2022 Creatinine [Mass/Vol] 1.23 mg/dL 0.44-1.03 [facility] Estimated glomerular filtrat ion rate (GFR) non- AmericanOrdered By: Bette Diaz on 03-26-2022 GFR/1.73 sq M.predicted among non-blacks MDRD (S/P/Bld) [Vol rate/Area] 42 mL/Min [facility] - Chemistry and C hemistry - challengeOrdered By: Bette Diaz on 03-26-2022 Magnesium [Mass/Vol] 1.9 mg/dL 1.6-2.6 [facility] No Panel InformationOrdered By: Bette Diaz on 03-26-2022 Estimated GFR () 51 mL/Min [facility] Comment on above: GFR estimated refere nce range: According to KDOQI guidelines, <60 ml/min/1.73m2 is sufficient to diagnose a patient with chronic kidney disease. Pharmacy Creatinine Clearance (Chem N/A [facility] Phosphate [Mass/volume] in S ganesh or PlasmaOrdered By: Bette Diaz on 03-26-2022 Phosphate [Mass/Vol] 3.5 mg/dL 2.5-4.6 [facility] Serum or plasma anion gap de terminationOrdered By: Bette Diaz on 03-26-2022 Anion gap [Moles/Vol] 14.8 mmol/L 6.0-15.0 [facility] Serum or plasma calcium shyam urement (mass/volume)Ordered By: Bette Diaz on 03-26-2022 Calcium [Mass/Vol] 8.9 mg/dL 8.2-10.2 [facility] Serum or plasma chloride kathy surement (moles/volume)Ordered By: Bette Diaz on 03-26-2022 Chloride [Moles/Vol] 100 mmol/L 95-114 [facility] Serum or plasma glucose shyam urement (mass/volume)Ordered By: Bette Diaz on 03-26-2022 Glucose [Mass/Vol] 108 mg/dL 70-100 [facility] Comment on above: ADA recommended refe rence range Random Glucose Reference Range is dependent on time and content of last meal. Glucose of more than 200 mg/dL in a nonstressed, ambulatory subject supports the diagnosis of Diabetes Mellitus. ADA recommended refe rence rangeRandom Glucose Reference Range is dependent on time and content of last meal. Glucose of more than 200 mg/dL in a nonstressed, ambulatory subject supports the diagnosis of Diabetes Mellitus. Serum or plasma potassium me asurement (moles/volume)Ordered By: Bette Diaz on 03-26-2022 Potassium [Moles/Vol] 3.6 mmol/L 3.5-5.1 [facility] Serum or plasma sodium measu rement (moles/volume)Ordered By: Bette Diaz on 03-26-2022 Sodium [Moles/Vol] 138 mmol/L 136-146 [facility] Serum or plasma total carbon dioxide measurement (moles/volume)Ordered By: Bette Diaz on 03-26-2022 CO2 [Moles/Vol] 26.8 mmol/L 22.0-30.0 [facility] Serum or plasma urea nitroge n measurement (mass/volume)Ordered By: Bette Diaz on 03-26-2022 Urea nitrogen [Mass/Vol] 18 mg/dL 03-30 [facility] Complete Blood Count with Au to Diffon 07-25-2021 Basophils (Bld) [#/Vol] 0.04 10*3/uL Normal 0.00-0.20 [facility] Comment on above: Performed By: #### C BCAD, LIPD, CMP #### [facility] [address] [place], [place] [id number] Basophils/100 WBC (Bld) 0.6 % Normal [facility] Comment on above: Performed By: #### C BCAD, LIPD, CMP #### [facility] [address] [place], [place] [id number] Eosinophils (Bld) [#/Vol] 0.40 10*3/uL Normal 0.02-0.50 [facility] Comment on above: Performed By: #### C BCAD, LIPD, CMP #### [facility] [address] [place], [place] [id number] Eosinophils/100 WBC (Bld) 5.7 % Normal [facility] Comment on above: Performed By: #### C BCAD, LIPD, CMP #### [facility] [address] [place], [place] [id number] Erythrocyte distribution width (RBC) [Ratio] 13.7 % Normal 11.0-15.0 [facility] Comment on above: Performed By: #### C BCAD, LIPD, CMP #### [facility] [address] [place], [place] [id number] Hematocrit (Bld) [Volume fraction] 34.8 % Low 35.0-47.0 [facility] Comment on above: Performed By: #### C BCAD, LIPD, CMP #### [facility] [address] [place], [place] [id number] Hemoglobin (Bld) [Mass/Vol] 11.0 g/dL Low 11.6-15.5 [facility] Comment on above: Performed By: #### C BCAD, LIPD, CMP #### [facility] [address] [place], [place] [id number] Lymphocytes (Bld) [#/Vol] 1.4 10*3/uL Normal 0.9-3.9 [facility] Comment on above: Performed By: #### C DYLAN LIPD, CMP #### [facility] [address] [place], [place] [id number] Lymphocytes/100 WBC (Bld) 20.1 % Normal [facility] Comment on above: Performed By: #### C DYLAN LIPD, CMP #### [facility] [address] [place], [place] [id number] MCH (RBC) [Entitic mass] 32.3 pg Normal 27.0-33.0 [facility] Comment on above: Performed By: #### C DYLAN LIPD, CMP #### [facility] [address] [place], [place] [id number] MCHC (RBC) [Mass/Vol] 31.6 g/dL Low 32.0-36.0 [facility] Comment on above: Performed By: #### C DYLAN LIPD, CMP #### [facility] [address] [place], [place] [id number] MCV (RBC) [Entitic vol] 102 fL High 80-100 [facility] Comment on above: Performed By: #### C DYLAN LIPD, CMP #### [facility] [address] [place], [place] [id number] Monocytes (Bld) [#/Vol] 0.5 10*3/uL Normal 0.2-0.9 [facility] Comment on above: Performed By: #### C BCAD LIPD, CMP #### [facility] [address] [place], [place] [id number] Monocytes/100 WBC (Bld) 7.1 % Normal [facility] Comment on above: Performed By: #### C BCATierra LIPD, CMP #### [facility] [address] [place], [place] [id number] Neutrophils (Bld) [#/Vol] 4.7 10*3/uL Normal 1.5-7.8 [facility] Comment on above: Performed By: #### C BCAD, LIPD, CMP #### [facility] [address] [place], [place] [id number] Neutrophils/100 WBC (Bld) 66.2 % Normal [facility] Comment on above: Performed By: #### C BCAD, LIPD, CMP #### [facility] [address] [place], [place] [id number] Platelet mean volume (Bld) [Entitic vol] 11.40 fL Normal 7.50-12.[address] [facility] Comment on above: Performed By: #### C BCAD, LIPD, CMP #### [facility] [address] [place], [place] [id number] Platelets (Bld) [#/Vol] 216 10*3/uL Normal 140-400 [facility] Comment on above: Performed By: #### C BCAD, LIPD, CMP #### [facility] [address] [place], [place] [id number] RBC (Bld) [#/Vol] 3.41 10*6/uL Low 3.90-5.20 [facility] Comment on above: Performed By: #### C BCAD, LIPD, CMP #### [facility] [address] [place], [place] [id number] RDW-SD 51.4 fL High 37.0-50.0 [facility] Comment on above: Performed By: #### C BCAD, LIPD, CMP #### [facility] [address] [place], [place] [id number] WBC (Bld) [#/Vol] 7.1 10*3/uL Normal 3.8-11.0 [facility] Comment on above: Performed By: #### C BCAD, LIPD, CMP #### [facility] [address] [place], [place] [id number] Comprehensive Metabolic Pane yuan 07-25-2021 Albumin [Mass/Vol] 4.1 g/dL Normal 3.6-5.1 [facility] Comment on above: Performed By: #### C BCAD, LIPD, CMP #### [facility] [address] [place], [place] [id number] Albumin/Globulin [Mass ratio] 1.5 {ratio} Normal 1.0-2.5 [facility] Comment on above: Performed By: #### C BCAD, LIPD, CMP #### [facility] [address] [place], [place] [id number] ALP [Catalytic activity/Vol] 394 U/L High 35-119 [facility] Comment on above: Performed By: #### C BCAD, LIPD, CMP #### [facility] [address] [place], [place] [id number] ALT [Catalytic activity/Vol] 43 U/L High 6-33 [facility] Comment on above: Result Comment: 06/07 Female reference range changed. Performed By: #### C BCAD, LIPD, CMP #### [facility] [address] [place], [place] [id number] Anion gap [Moles/Vol] 18 mmol/L Normal 12-20 [facility] Comment on above: Result Comment: Effe ctive 07/13/2019 reference range changed. Performed By: #### C BCAD, LIPD, CMP #### [facility] [address] [place], [place] [id number] AST [Catalytic activity/Vol] 50 U/L High 9-34 [facility] Comment on above: Performed By: #### C BCAD, LIPD, CMP #### [facility] [address] [place], [place] [id number] Bilirubin [Mass/Vol] 0.68 mg/dL Normal 0.30-1.20 [facility] Comment on above: Performed By: #### C BCAD, LIPD, CMP #### [facility] [address] [place], [place] [id number] BUN/CREA 26 Ratio High 6-22 [facility] Comment on above: Performed By: #### C BCAD, LIPD, CMP #### [facility] [address] [place], [place] [id number] Calcium [Mass/Vol] 9.5 mg/dL Normal 8.6-10.[address] [facility] Comment on above: Performed By: #### C BCAD, LIPD, CMP #### [facility] [address] [place], [place] [id number] Chloride [Moles/Vol] 102 mmol/L Normal 98-107 [facility] Comment on above: Performed By: #### C BCAD, LIPD, CMP #### [facility] [address] [place], [place] [id number] CO2 [Moles/Vol] 25 mmol/L Normal 20-31 [facility] Comment on above: Performed By: #### C BCAD, LIPD, CMP #### [facility] [address] [place], [place] [id number] Creatinine [Mass/Vol] 1.6 mg/dL High 0.6-1.4 [facility] Comment on above: Performed By: #### C BCAD, LIPD, CMP #### [facility] [address] [place], [place] [id number] eGFRAA 38 mL/min/1.73m2 Low >60 [facility] Comment on above: Performed By: #### C BCAD, LIPD, CMP #### [facility] [address] [place], [place] [id number] eGFRNAA 32 mL/min/1.73m2 Low >60 [facility] Comment on above: Performed By: #### C BCAD, LIPD, CMP #### [facility] [address] [place], [place] [id number] Globulin (S) [Mass/Vol] 2.8 g/dL Normal 1.9-3.7 [facility] Comment on above: Performed By: #### C BCAD, LIPD, CMP #### [facility] [address] [place], [place] [id number] Glucose [Mass/Vol] 124 mg/dL High 65-[address] [facility] Comment on above: Result Comment: For FASTING Glucose --- ADA reference ranges: Normal 65-99 mg/dl Prediabetes 100-125 Diabetes >/= 126 Performed By: #### C BCAD, LIPD, CMP #### [facility] [address] [place], [place] [id number] Potassium [Moles/Vol] 4.2 mmol/L Normal 3.5-5.5 [facility] [place] [facility] Comment on above: Performed By: #### C BCAD, LIPD, CMP #### [facility] [address] [place], [place] [id number] Protein [Mass/Vol] 6.9 g/dL Normal 6.1-8.1 [facility] [place] [facility] Comment on above: Performed By: #### C BCAD, LIPD, CMP #### [facility] [address] [place], [place] [id number] Sodium [Moles/Vol] 141 mmol/L Normal 135-146 [facility] [place] [facility] Comment on above: Performed By: #### C BCAD, LIPD, CMP #### [facility] [address] [place], [place] [id number] Urea nitrogen [Mass/Vol] 42 mg/dL High 7-25 [facility] Comment on above: Performed By: #### C BCAD, LIPD, CMP #### [facility] [address] [place], [place] [id number] Hemoglobin A1Con 07-25-[address] [facility] Comment on above: Performed By: #### A 1C #### [facility] [address] [place], [place] [id number] HbA1c (Bld) [Mass fraction] 6.0 % Normal 4.0-6.0 [facility] Comment on above: Performed By: #### A 1C #### [facility] [address] [place], [place] [id number] Lipid Panelon 07-25-2021 Cholesterol [Mass/Vol] 135 mg/dL Normal 125-200 [facility] Comment on above: Result Comment: Low risk < 200mg/dL Borderline risk 201-239 mg/dl High risk > or equal to 240 Performed By: #### C BCAD, LIPD, CMP #### [facility] [address] [place], [place] [id number] Cholesterol in HDL [Mass/Vol] 52 mg/dL Normal >40 [facility] Comment on above: Result Comment: High Cardiovascular Risk HDL <40 mg/dL Low Cardiovascular Risk HDL > or equal to 60 mg/dl Performed By: #### C BCAD, LIPD, CMP #### [facility] [address] [place], [place] [id number] Cholesterol in LDL [Mass/Vol] 53 mg/dL Normal [facility] Comment on above: Result Comment: LDL ATP III CLASSIFICATION LDL less than 100 mg/dl Optimal LDL 100-129 mg/dl Near or above optimal LDL 130-159 Borderline high LDL 160-189 High LDL greater than 189 mg/dl Very High Performed By: #### C BCAD, LIPD, CMP #### [facility] [address] [place], [place] [id number] Cholesterol in VLDL [Mass/Vol] 30 mg/dL Normal [facility] Comment on above: Performed By: #### C BCAD, LIPD, CMP #### [facility] [address] [place], [place] [id number] Cholesterol.total/Chol esterol in HDL [Mass ratio] 3 {ratio} Normal [facility] Comment on above: Performed By: #### C BCAD, LIPD, CMP #### [facility] [address] [place], [place] [id number] Triglyceride [Mass/Vol] 152 mg/dL High 30-150 [facility] Comment on above: Result Comment: TRIG ATPIII CLASSIFICATIONS TRIG less than 150 mg/dl Normal TRIG 150-199 mg/dl Borderline High TRIG 200-500 mg/dl High TRIG greather than 500 mg/dl Very High Performed By: #### C BCAD, LIPD, CMP #### [facility] [address] [place], [place] [id number] Coding Summaryon 06-23-2021 Coding Summary HTMLBase 64 VmenvsibAIh8nDe+PGhlYWQ+P K6QTCMrS16iyGQeaD2DV2jMSJ 8KEVSBWEOWSV2WSB7avYD8NAp iH0YabhDc QltxfIKvRD99HVe3AXZ0qBjvG BgxhD8zsLDfC9e6UxDiGO89zC 80UItfDXFcFgW4KkRydyjuyTB y K7jaQkQvxYNmSep+PHRhYmxlI HdpZHRoPScxMDAlJyBzdHlsZT 6tBq9yKUIpZGEqiJyqvWHxSuV j x2ypZKCaDXgmFP4aqYpeQ8Qny PZ1KUEnq0x0Aj63oBM+PHRkIH J8bJttOLgtd899CsNiv2lfYXR 3 pVUjCKohXDM7N34th1P7DZGyB STaOIV3wXU2tL7wkAvtuvajI7 XpbWLhRiF8PGD4rTWltZ6htBd n nqlazA6xOnc+Y91QMX4YAFCFF O6EZun3Y7XbAtqhtSE+PC90YW KmOT38oIHwiTEee2pykPq3CzQ w LSKyAWM4lWsvXCtrc3MqSKNnR 40dyDNrk5M5ZAXopIeqlRYtKi PktJV1iP3uONtcycohy1refpl n Jndpb6tmfv05uA99F77xHZbxM LKcYVG4ZANwGJZmoPnpdx9btF 9wIi8+VEbjb7yqm9tvcAq1QdB w KYDimwCyeVutJFR9w3BrHx47P 7MilPwbe1HgMfj7wb39yNIap1 I2zBX2VCfhPUJmoZ9oSQqxWtK 6 FONsYiFjfX45xNMnDYryRp0kw RkfoOllOT3sBDAgzxdqZOCgwY 0kKIVjcZLbyCqwDQ0wIVQktje m n180RxMyXWK4EEWbfXMuY0Riq R0oUiMnPGUuSNOjO8JtoYSdER qpR237FDgbZbK9LEWvsuZmN6S s ZMBpqLnyQlB7u9L9Le7Jg4Fyf wjqWME7ONxgEIFiYhH6HmKxHv Y3W3JvUra2XRLniYocBG0rG8Z h DFKfvmtghhvqzNP9OZRpXZAvq R08fJOvQQbhZl2jh1E6z078UU JwOMKvcD01Ss9ezEllZDKmdIV U gV3vhwqfn3yfxjooFvYmZKOjN Fa6NMi2FWJdaHvqRqHePVO6Oe Z2ACO0yZSnwH8ggGavfbqfdZ1 w Oyc+F79pqC6vOVK8XJX4anwoN OEdtwRsJZ30XL41P2RyAyydtP FibGU+WESnerLrbHjhUB9kWdO j i0oae4MlOGfiJ2LnZXRfTRypE xm0SKTcQBG7kWH2gU8oYNSoKO zxo3F7rIR5A4MpfbLaji5jw7w s ZZUoSNxnC01ipINlu6N5JVSnp HB2ZATboBqkJmOihY76Cqv+PG YfiJldx0PrDmsip1jax4nxwPt 9 RlUlYARzdsZoiTjkAXI9p4HwI e59D81dJXctWKNgKPFtYHQoTK ZxlCwtwi7zhD7gRm3+PGNvbCB 3 aLX2hL7zMALeOnD9YSsdC782Q qUsuNRtVizkg5pfx8wmoAc3Kg AgVONwqdIqoOjuDDQ6n7ZpMl2 8 K46oAKkgLYVsWRIzKCSeKWMim Qlozh6ucO9rWv3+AH2vq1lgbq 09tE10bZU+EISpKNF6jFspPJd w XHOscZ7ePXinMaG4GBJfUsYpf Q41jLWhLJjwMp5ezBkdaPymEO 7wVYOmprojy672DwIlz3dlRBP w rXWiIZmpBNI4I32vc5S8AIJbG OUjWTB4iMW0rK1hfAhoztioaK YyqMomgoVryZfcTMyrVYudL89 6 IHRvcDsnPlBhdGllbnQgTmFtZ Sx2E2IrLlq3IVFfiSawHQ9koH WuTUfzWg9cgXtwtSzaHQ6xZMP p igwoc697JkXnt7gfVTAezZLaB QciMME3P80bt5Q9BWSeSPXtYZ Q7jXS1hI2jlPzsotkgwPMbcQr g sbWuhIisUNbaZUsuT463DNMzm PejGkHwriFuGATjiEA1AK79FN 42pFXrm7Z1jXH6G4OtLAQoozz t vixeiXC7LRNcHMWibS85Yl8vj MidIh8aKEIaNFM0CUIsnDWoN8 AqkL0lAjVoUMHfOHPdX0KcgPV t OSzwX776BWctOwI7QJXmzdIiN 3RoZKEldXzgVcT9n0W7Is0SD6 L4EQ67ED83gYUde0Q0iLP5Y5J h BTBxnrgmelkcuBO2PJPzKNWbj O46Gi0wlJuaTe4pOFMnKUV1LW YkwZWxS0RiiA5yLuGuBFUqUZP w M8CixXCaPHskI270STssAlD0C LKrrdOpD4IzBLBpbNqsRjU2z9 S5Ma4FCOu2LJ79CN46kTWfp5U 5 lPA2O1HsLWWryvsfgahlxFS4W UWpPJQndQ57Wa0iyZftZd5yAI LuGSM0GZQhkOQtI1TtaL7gEcY j DSKaGKBsA3EmnSPsWXsxW699W TnmQjY1TEYuwjDrC4DhHNDndH nwMzA0n8B4Xn4AJZGvKC30LGV 5 wIJ5PA50DD93Q5WqHognkHGss +PHRhYmxlIHdpZHRoPScxMD SfMlKyfVgaON9nMp6wJLMiJRW v gEjfbDEnJjWfy3erWDDbIKphZ K4pjPmjJ1UqyXC8XOGyk5x1Nn 14H94aJ9KimFG+YRVrvVB5tJK 0 fS4vEpGkLvS9YYujF195XgSou MFvEcarf0ehp5lnkNt9TlX9FH RhicQnkVtfGHO8c9NrMe11Z79 s IHdpZHRoPSIxNSUiIHZhbGlnb x8tsI0fEs9+CWAeaKR3gCK9yG 6pHtZzWgG9QQqeB536RhUxjVN v Dnnsc3ram3vuaIw6LiKiYNLpa oKnjVipVWL9d2KoOp42O3RasA daq2XsOaq3qt44nZJyw9Z7lWT 9 J7CeIPTmbcqgkWZtdUpvAM7tV PBjzdabBFCedB9eJYTkV2u4Cb JnLcU9YZnhU4LpowN7UJEhjUA g JHnjDUD8I10ed9U7CAMyQKIeK US9rIB8bR7bcSaeutdxnIAnxG relbZrqGzhXDsfUWhqD451NEH v vRjsTQYgvA7vWOVkqVBuoZuuL K7hFKJmjnkyVuRJXRkRAWOqRB UJWPaJCeAJPNPDXv04H0BcBbi 0 ZUHpmGxqWE2buSIqEYdmFo9rr FfzlMrxZI5pPEJqczxgNDTsaF 7pKLAahONyaZrvVJ9kQSElhpm m t767MnKuHQV7CUFjjGNcC1Hsy B9yVbIyGGMhQRKeF7TdsBOiRN csZ168VSipFaZ6DHCvsnUxT4C s WQRovDwhFwS2g9V7Pv3vGn2iX r8vNGEjOK33WS64gUAxx1W9hM N6A9OnJJLxfnpwedhwnAK9NLR u BARueZ61rWFnIYpnDc4ey7O1j 848YYWcKGGeqW48Cc6zcMahWD OfhCQMuI3satmut0kbrpmoOtC w HHSwBKs4TTt9VRAikKldGeRdO AP1XmJ0BFB0yZObfF5elVtikq lrdI5sRcq+ECUoHTNkqhP7F0B k Ayz0RYHhlHnvPE7ylXGaNUgiE w5waIwhhNthNF1yMESradayGC AcmP2gEBGrcUIleGkkEC7sMPZ p bnqvt935JuRwFRS3AQBobCPoI 5DohZ0iSuPdNTVuYZGyD6FxmZ PhGEzmL269GMkrDvK1UAFqshP p Z1PkOXBjxEloPgE0c1H4Ux2XD D8MGER3Y0PnTln1GNAzcQdzKK 5xwLQpTZafUi0vjJerkLddZF3 w CTMhzrweVUKcfO2fZGOpsQAnn PoaIY8nBYEfsgkcj028WiHdFY A0RBOzfCGsT0KcsY4pWkAlJWP w LKJwD8UrgMPzUOabA477RMprE kH5YISqpmFnO8WpXYYfgXdbYs E6c7L3Kx9PdEOxQCQlTI48EPk u PKWiPhOkHR81FW53V2UwXnafo GFibGU+PHRhYmxlIHdpZHRoPS whMDNrWiUjeOrkYI1qLy3yREE y DBXybRhvzIXwFsAce8saCRGjX HsrHQ1pxUkhQ9QmxUW0BTFvi7 m0Ch33K93aF7QjeRZ+PGNvbCB 3 eNW3bU6zNqBuMsW7UTahJ144O hAlsMAhLmfwy2ulg5lggAr3Wc KsGWPtkwZwkNvsCQF5m0UdRn1 8 V30sMBstEQLcQCXqWZLrMJInl Xqhub4tlV8qZa6+UWAekXS4aC U4kE6qZjQvMjB7FYwxH312LmL v oQWaUtxaZ84kE9PdwGO+PHRyP sy0EXXoiGllXU3pyUAeMVjoMm 3iPAL9PfDkKpSgQCbnY9AxHJS p luhfkuwfzHY0INStDJHwxT05Q p1zyZvrCv5bPBTzSQX2WLRsvE GlK8HmlA9kGvBgTQSwGIMbZ5C l bOMgTYkaD755GDmyQcD0POVos hVwL4KhNQPugLxsJjN6p0E5Jm 7GcKozlUCcTT1xDiGqPLn4M1L k Trk3CUNklTtkSV3jtFCuWWwqK b0mqPqhhFgxED9fBIXutfjzo1 28RcKie0hdWMKteNBbPVckDOV 7 K34sg0K5RKLxIHOhUQC4vNR8b H5ujYqdhykkrDJpqZacstRpxV piOBjxDIdxA929JCJejJjjXkE J Plq4X1VqCkg1PEFdyLksBJ7bh HIlKMihAq8jiRkzqVhuHQ6cBX Zetpgvi136UhVyg9grJNVqfTO g TLfqOST8S31ep0G9WSBxJWPeI TU7sLE3lV6edTfljkmvrTVztG tqxnFimQuxVArfAGzjM175HLH v fVcfEd4PXmv8V2SqHew9WBYlo JrpEF4pzBSvHEjeKr1jyUmfyV crZO9tFJLztwijp126WhDud2i k OTAbbGBrMEuzBXY3C05jn2Q0R HEuOQMvRIR0aAO4uR1ehFvcct ogbGVmdDsgdmVydGljYWwtYWx p Q935UBIpqVrpVtRdeHDuQzwja GQ+ZE61tm81K5HbPsiqOxn3VE WvMTR8nLW1kD7kXKEwWZunb8C 5 bGU (more content not included)... [facility] Sleep Studyon 06-23-2021 Sleep Study [id number] FF [facility] Consultation/Specialist Note on 06-21-2021 Consultation/Specialis t Note DATE OF STUDY: 06/19/2021 SLEEP STUDY FINAL REPORT INDICATION FOR STUDY: Sleep apnea, treatment initiation. Sleep montage was done in the usual fashion for clinical polysomnography including the continuous electroencephalogram, electrocardiography, electro-oculography and electromyography of the mentalis (chin) and the tibialis anterior muscles bilaterally. The respiratory battery consisted of measurements of nasal and oral air flow, abdominal and thoracic wall movements and efforts and nocturnal continuous oximetry. Obstructive sleep apnea will be defined as a 50% reduction of air flow for at least 10 seconds with continued thoracoabdominal movement. Central sleep apnea is defined as cessation of air flow for 10 seconds with an absence of thoracoabdominal movement. Hypopneas are defined as respiratory event lasting at least 10 seconds with at least a 20% decrease in thoracoabdominal movement or air flow and with at least a 4% oxygen desaturation. SLEEP LOG: Not completed. SLEEP PARAMETERS: Time in bed was 6.0 hours, and total sleep time was 5.6 hours, giving a sleep efficiency of 92.9 percent. Latencies to sleep stages were abnormal with a sleep latency of 3.5 minutes and a REM latency of 291 minutes (prolonged). Sleep architecture was abnormal with a decrease in stage REM. The patient spent 13.5 percent and 45 minutes in stage N1, 62.3 percent and 208 minutes in stage N2, 17.2 percent and 57.5 minutes in stage N3, and 7 percent and 23.5 minutes in stage REM. RESPIRATORY SUMMARY: During the treatment night, the patient was titrated on C-PAP for control of the previously documented sleep apnea. Good control of sleep apnea was achieved at C-PAP 15 cm, but the patient continued to have significant nocturnal hypoxia despite control of sleep apnea. Consequently, supplemental oxygen was added. At the final treatment pressure of C-PAP 16 cm, with 2 liters of 02, the patient had 209 minutes total sleep time. At that pressure, there were 1 respiratory events, (0 central, 0 obstructive, 0 mixed and 1 hypopnea with at least 4 percent desaturation). The apnea-hypoponea index was 0.3. The patient aroused 1 time due to respiratory events for a respiratory arousal index of 0.3. Nocturnal hemoglobin saturations were normal at this treatment pressure with a minimum saturation of 90 percent. Considering all treatment pressures, the patient did have significant nocturnal hypoxia with a minimum saturation of 84 percent and with 21 percent of sleep time below 90 percent saturation. However, this fortunately did resolve with treatment settings discussed above. BODY POSITION STATISTICS: The patient spent 87 percent of sleep time on the back with an apnea-hypopnea index of 2.5 and 13 percent of sleep time on the side with an apnea-hypopnea index of 7.7, considering all treatment pressures. ELECTROCARDIOGRAM SUMMARY: ECG summary revealed an average heart rate of 62 with suspected atrial fibrillation present throughout the study. LIMB MOVEMENT SUMMARY: Measurements of left and right limb movements by anterior tibialis electromyography revealed minimal periodic limb movements. The patient had a total of 11 limb movements with 3 arousals. The periodic limb movement arousal index was 0.5. IMPRESSION: 1. Obstructive sleep apnea with hypoxia, controlled using C-PAP. 2. Persistent nocturnal hypoxia, requiring supplemental oxygen therapy, but controlled with this combination. COMMENTS: Leia Amaya was found to have obstructive sleep apnea with significant hypoxia, complicating her known congestive heart failure. This sleep study does show that good control of her sleep apnea can be achieved using C-PAP. However, the patient did have persistent nocturnal hypoxia after control of sleep apnea which required supplemental oxygen to be provided. Consequently, the patient should be treated with C-PAP 16 cm with 2 liters of 02; alternative auto C-PAP could be considered. RECOMMENDATIONS: 1. The patient should initiate nasal positive airway pressure at settings of C-PAP at 16 cm with 2 liters of 02, or auto C-PAP maximum 18 and minimum 10 with 2 liters of 02 bled in. 2. The patient should return to the sleep laboratory to review these results and discuss their implications. 3. The patient should ensure adequate total sleep time and regular sleep-wake cycles. The principles of appropriate sleep hygiene should be encouraged. 4. The patient should continue efforts at progressive weight loss. Even moderate weight loss can result in significant improvement in respiratory events. 5. The patient should be reminded of the medical, accident and cognitive risks associated with sleep apnea. 6. Clinical correlation and follow up is advised. Bam Garcia M.D. JOB #: [id number] bk [Electronically Signed on: 06/21/2021 13:14 EST] (more content not included)... [facility] Provider Orderson 05-30-2021 Provider Orders [id number] FF [facility] Coding Summaryon 05-11-2021 Coding Summary HTMLBase 64 BazlloweFBy9uDq+PGhlYWQ+P X4SRCNaJ22seJDbhJ4HF0dWSG 1UEQAUZZCGKF9ZSV1guYY7BEq lE1IgtjEj ZoqjqIXgYW64ZZe2GLK9sWmyK HqatW7wxAFmG3t5RjApWQ16hE 89SHpnHSXlZmP5FrWxkodctAK y E4eeWeOgsGRlWna+PHRhYmxlI HdpZHRoPScxMDAlJyBzdHlsZT 9zSr8nEVZfGAGbyYdkyRRnAjW j n4qjOUKaNJogLA8fbZwkO4Msz NQ6LPVrm5j8Qz87xCR+PHRkIH Q7eZxkTPncp865QrSvh0jxSEM 3 bRXnKVicCYP1A60yr2D6LCPuW STlGHI3dKQ1vM2ajExmuicbI7 UlvIBeEdZ9GLW5tWUavX2otSz n egrhzE8yUkg+R92UUF6VBTMDK Q4LTbb9E5XsXqdpjQY+PC90YW WcSO65dSYskDLze0viqFv6JsC w DWXeZWA8sMxiWKkxn1TmCMRpW 35dmRLvi0F2OAHyvXqmnPQsHe KcwWF8rR4uETmuvacih1iyxjx n Oqyhu7yqjg24oN95I50fCKxqP IQxZAM5ZTJlRWPzsRtxgg0tmU 9wIi8+CMllp3wia5jyrNt0HkF w CNLwjpQhqIgzFRO0o1TnOs04L 7YovMyot9KqPey6gi49qLGru8 E5mCW0NNlxDPJytY2iAOsmZtW 6 YJNzWwQkeN11cKNqFBxnJk1cm WmxmIdlFF7hTCXalieoCMIptM 2pNDXdhTPrmOwwQT2fTPRsrms m c440FtPsAPR8KBDahTBvB8Emg H6mSxIiRULmAZIiV1DjyEVeTZ rbB546AMggJlZ1JMLrtfFmR2B s QXGkrKjyKkT5r3V6Gy6Vj6Cve jbiDVO0YNlcZFJjIpA3XaSaKc Q8F2DkDxj0GIWrxUewZM7vP0K h GZEqnoxlobfhrLT4EFTuMXXqi L64mTKwQSyzVs5ab3F2z584WM BvTPNseG14Ov9opHquTDOdgCY U cF2pifmsq4uejjrbKaZpDDOkX Of6PDw1UBGzmBazKnPyQFT8Fc M7LGG0kMUlmE0rcSisxbwujJ1 w Oyc+I29mqO7bSOW8NZN0kumlC MWfdaNdBL47GG21J3LpArtzsZ FibGU+JOPhmsOyyZpdYE5dTpL j g6qjk7CrHEehJ8NiQSNlVTiqL rw4JFSbEOT5eCD9lV1xDWDzTO gig4E1tLG2O5NrwoDvyy7mv5r s OCMcYNulZ21zyGTnf0Z6SDSqj VM8JBGmrEkyIdXxyW76Ewg+PG ZxfMpwu1RkHqone9zdv9bxfUq 9 ZgWlVVEhzyMkzDevOWF0u3YyB a65P99tDSzvKIRcVJYaKILeMW EfkOgmek2lkS3iAy3+PGNvbCB 3 wXI3qX5gJPAwYeW3KTzrZ066L wPneUCgFlqty0xqw7hmhWw0Bi TiGXOtkdWvhRktHRW7s3TiQg1 8 O97dDEqzHTArGIRqYNPmAGPuh Wlunb5iwT7vHq1+ON3og4gjiy 12sA42qYT+MLKdUEH0fHsyJUs w SWVkdX3nMJlyFiU9ASQlOpBws M64kYOqNRadQq1kwHkiqFwiIX 0eTYLsgldwc586ToSow3myBYZ w yWTmXMqlKOI5W65yi7N9TEOgG WJqKMZ6xNI1aF6unNmpgefmdT TlcQaiycJdaPsyIDmyYTqzP53 6 IHRvcDsnPlBhdGllbnQgTmFtZ Xk6O7DoZcw0IIHvoWvgKT6auE ZpXAzdWd3lkSjcrCmjJU0eCAV p uwmfh013UjTdy1lkMLAbkLNnI QoyNES2Q02pw5F8LITrTUHdSA Y3zNI1fU2nbNsphsiglWGvkEd g tiGlwPsaKYswWDmcH438ACJwg KaoXlXxzvGaREYuePJ6LK52LY 70yOYeu8E1eFW2Y7GxEVShdzb t gjhvwKX0UCUaVKIzlO48Ad8vs XarDx3aDDKjVAB8DPTmuMLdH0 NebG7hMkYgTRMyBUQuK3WthFN t FRqhT262PKgeHnU3PJJnnzUtU 6GqAOOnkLopKuG1p4A8Xq7XI1 F2IY65BT11hSPam6M7oWL2D2D h IBHgigcwkjaaqGJ9XMWaTAEcy J07Mf3tdAwmPc9zSKFkOIP3UB FmaOTeC6UgiZ8wIwWtHZHuOFL w T9KouXLaGPdhO842AIwiFgW2Y KFdarYbG7XwFTBldOegAqO8e7 G0Mq0TITw6ZM09WO25dVNqq3N 5 zJX3I8ChSSDindnbcfzuzRW2A RJjPLZjoX14Eo6drWtcPy3bUZ RxFOA2EBLvkEAnO3ItpV9cNbV j LVVkEVSsX3FgbJEdVCnoS124I LvaVgS1OPOuxsIhP7CaTYBhgQ orAmJ4j5K5Kn0BKTFjMN32ZJQ 5 nGO4EH83SC20S3YtVtxihTDrv +PHRhYmxlIHdpZHRoPScxMD LnSjLzhRgvWC8bLv7nMGIfXHD v sKovdGOsUhVgz3dzMDUtFKbzI H5crYhuM5QsrRC0TMJcq7t1Px 22S97oK9NolXN+SVZstZX1bTF 0 jZ6eLxCsQuG4AJhkT017HwYvu IRhPqopc5gys2dmcEn1GdZ2IG WkocOycVlqXZD5i1AuPi52U63 s IHdpZHRoPSIxNSUiIHZhbGlnb n4mjU1sHy0+XTDwkGR7tHQ4vF 5xZmThCsL3BUqcI776MoHguOG v Kuybs8nko7neeLj7BqLrKIKfv hKakUvbRTP4i4KjVa06P0JiqI afu7CkKzc3yh97uBIwh1P3zUD 9 U3ArOIUdwxgwfRXvyZmpJS9uO VAgbownYUPpvU5zONJkH3p1Oz IlLbR0SIztR0FhkyK6ZINgiOQ g DPjuOKX2Q00bf7G4PKAwAPVyZ LI3gGN1mJ5ttPcdmoqrnGFoiH hzwlDftZaaMItfBRnpY699QXV v bVnxIKBrgK0kDMHmbSRdeDllJ B8wCCCntjhlNyWULFqJCGDzGT ZAQTcUMzUSCGFNWd50K4JdCtt 0 TJHzwLrrMA6qmARrBVcgOs0nh LgyvTjnQG8wYJPnyoxePOOoeE 0qJCGulUYjoVpmEN2oENVpwxq m g032TpKjJUH9NLHwhIZlR2Loz B3oDpFoTWDjAGSjJ3JacOTgBK suE534UEgwQzF5WNCptxAmT4A s JHEtpXjmNyT8t0Y6Bv1qYp1wH x0cROZlZJ38FX15nKSek0F7nT S3B4CfKVUreqrletpkkGU6VXA u PDDqsY91jTUvWJnbZi6qr4T8l 642CKOcUCDqlE74As4qwJibWR XlpDRXhM0unjuak6zisdugBbS w XEMsGRc3KSq4BCMbrKmgEuDrL ZV8IdU0IAN0gDGwwE3slDhgyy kjpY0mSuv+LjrkGNZxbpC6I6X k Gzm4STFajKksYH1ouZBcAYomE b2acOwjcPswGV2eWMOgwgeqUM CzbS8tYUYhcIHymAgsPL7fDIM p orbcy348MeWnQKR0PUCvzSGhA 0NmxB5bIsDgMNBwSOQuS7UdjM ZeGUzjY165YEzeFdZ8YGQpvwE p T7NoXMButTvvIbV4n5L5Ly7QL X3PTFI2D6TuYbu7OVUyiYfbEZ 5bzDFjSRviCy9jxTckdXkyBS2 w GVJcoxkfGLNymO8yPBHnhALzb BnoWD3cABWcyjdhz543ZgCtWJ U8QTEttHLuR4LloV7mCvBjBDO w PQLjI6GhcHZtFLtxI414YIodQ pW7RIZmhtGmO8WeRONyoYtoOi E1p4M7Ru5WpUEyEWOsMQ47ELa u EGFfTdZrMX83BH29K1JtShpdy GFibGU+PHRhYmxlIHdpZHRoPS xhKWUjUgBrxPfgKL8tOp6vOSP y SRNfoHwqtUXpWqUjy4pqYNGjL OoeJK3orOggC2PxeOB2RCDdr7 l8Dv36O65dH8BtpTA+PGNvbCB 3 eKC0vL5aVdNdBvQ9LZscU186I oLfqMGeDrizo2mhg3kkfSe5Rj OmAJBnnfRqhEqyDYP9o5JcPd1 8 H59jFVojHMOmQBOeXGWlRCWqt Gyllm9hiS7dZp4+RVWlsCI7yA T9yD2jMhAmAqX9YAnbC071TpE v sDTnYsydV99bQ0HatMF+PHRyP um5CDNrdMehPT5hsELvJJfhUx 8yZPF1ZfRnCaIcRXkdB6CjTRO p zjixdutzbWR6AWMdAPPakJ13V t4idRpkKt6vIQBhUJC0RDAavW SvH5UaxD2fWxMfEWAtIQKcJ6I l oULjRHuyV794VAgiXiA6ZKTga kHsQ2JjHNCuxIhiHuG9q2J3Ra 6CbOfnmXYoQW2tMnUoKZe0Y9O k Nmf5RQBrpBqkHW1dgPFfFCtxD q3omUehwZueGF8zMIFfwvdov0 52CnPne1abTJLstJXeIIhnGDV 7 W25mt3O0YQIaXOArLEJ3uXW8m O8aoImxhcoyfXRgzZmfmsDgzG ckYYlhDGfqS823FUJdgAqzPyH J Boq1T7BfNmj8PVKzfSmnQQ7mz FCfPHptCh2vkZxfvCefWY3cOG Hiuxftb847LvKqj7asPNZbwZO g XSutBYX4A82vn1O7JOVqURJzU IO6sRW9sW6zcAtlvdwpaVPopY hdhjQvfJtqAMbzPTbkQ594FHO v tEbgId0YTwc8A9TlBys2LCYyc UplZD5orQHgCGqaOi5gkCnfvG weUG9xNUHlxzeqt341XzIoh1i k PKHqxXWyEOrjEDV7H07el9R0Q XWjACUvHXD4gFD1pP7gfWjsmp ogbGVmdDsgdmVydGljYWwtYWx p A990XMTmgLawRgArqQGlHjjbo GQ+DD55ri29K4QoAxuqCvy1AU TdGXO1qNM0zN2cHBMqOPsjx6N 5 U (more content not included)... [facility] Sleep Studyon 05-11-2021 Sleep Study [id number] FF [facility] Consultation/Specialist Note on 05-03-2021 Consultation/Specialis t Note DATE OF STUDY: 05/01/2021 SLEEP STUDY FINAL REPORT INDICATION FOR STUDY: Sleep apnea. Sleep montage was done in the usual fashion for clinical polysomnography including the continuous electroencephalogram, electrocardiography, electro-oculography and electromyography of the mentalis (chin) and the tibialis anterior muscles bilaterally. The respiratory battery consisted of measurements of nasal and oral air flow, abdominal and thoracic wall movements and efforts and nocturnal continuous oximetry. Obstructive sleep apnea will be defined as a 50% reduction of air flow for at least 10 seconds with continued thoracoabdominal movement. Central sleep apnea is defined as cessation of air flow for 10 seconds with an absence of thoracoabdominal movement. Hypopneas are defined as respiratory event lasting at least 10 seconds with at least a 20% decrease in thoracoabdominal movement or air flow and with at least a 4% oxygen desaturation. SLEEP LOG: Not completed. SLEEP PARAMETERS: Time in bed was 5.5 hours, and total sleep time was 4.7 hours, giving a sleep efficiency of 85.2 percent. Latencies to sleep stages were abnormal with a sleep latency of 3.5 minutes and with no REM sleep documented. Sleep architecture was abnormal with an increase in stage N1 and a decrease in stage REM. The patient spent 20 percent and 3.5 minutes in stage N1, 70.5 percent and 5 minutes in stage N2, 9.5 percent and 34 minutes in stage N3, and 0 percent and 0 minutes in stage REM. RESPIRATORY SUMMARY: During the diagnostic sleep study, the patient had a total of 46 respiratory events, (0 central, 2 obstructive, 0 mixed and 44 hypopneas with at least 4 percent desaturation). The apnea-hypoponea index was 9.9. The patient aroused 23 times due to respiratory events for a respiratory arousal index of 4.9. Nocturnal hemoglobin saturations were severely impaired with a mean oxygen saturation of 86 percent and a range of 81 to 93 percent. The patient spent a total of 98 percent of the night below 90% saturation, totaling 239 minutes spent below 89 percent. BODY POSITION STATISTICS: The patient spent 22.5 percent of sleep time on the back with an apnea-hypopnea index of 10.5 and 77.5 percent of sleep time on the side with an apnea-hypopnea index of 9.7. ELECTROCARDIOGRAM SUMMARY: ECG summary revealed an average heart rate of 56 with no significant arrhythmias. LIMB MOVEMENT SUMMARY: Measurements of left and right limb movements by anterior tibialis electromyography revealed moderate periodic limb movements. The patient had a total of 347 limb movements with 10 arousals. The periodic limb movement arousal index was 2.1. IMPRESSION: 1. Obstructive sleep apnea with severe nocturnal hypoxia. 2. Poor sleep re-initiation in the sleep laboratory. COMMENTS Leia Amaya was clinically suspected of having obstructive sleep apnea. This sleep study does show that obstructive sleep apnea is present, but also shows a concerning degree of nocturnal hypoxia. Treatment is indicated. In most circumstances, insurance companies will require treatment of underlying sleep apnea before determining whether oxygen therapy is indicated. RECOMMENDATIONS: 1. The patient should return to the sleep laboratory to review these results and discuss their implications. 2. The patient could return for initiation of C-PAP by titration or auto C-PAP could be considered. 3. The patient was noted to have hypoxia on the sleep study. While this may resolve with control of sleep apnea, in some cases it may persist despite resolution of sleep apnea. Consequently, it is advisable to perform home nocturnal pulse oximetry with the PAP device in use to confirm that the hypoxia is controlled. If it persists, supplemental nocturnal 02 should be bled into the PAP device. 4. The patient should ensure adequate total sleep time and regular sleep-wake cycles. The principles of appropriate sleep hygiene should be encouraged. 5. The patient should continue efforts at progressive weight loss. Even moderate weight loss can result in significant improvement in respiratory events. 6. The patient should be reminded of the medical, accident and cognitive risks associated with sleep apnea. 7. Clinical correlation and follow up is advised. Bam Garcia M.D. JOB #: [id number] bk [Electronically Signed on: 05/03/2021 14:20 EDT] Bam Garcia MD [Verified on: 05/03/2021 14:20 EDT] Bam Garcia MD [Transcribed on: 05/03/2021 10:44 EDT] [facility] Provider Orderson 04-26-2021 Provider Orders [id number] FF [facility] Coding Summaryon 04-18-2021 Coding Summary [facility]Base 64 XvitcjpzKNd3nWj+PGhlYWQ+P K2PPDXzO43foBUzbT4IP6tKCT 2RPHXYBLLIRF0OZK5uxIC5GEl wF5IprtUw GvyrbBEgVF63MLk3BUB5hYupM MgftY2gaDYmR9r7AqOvDX41dF 88VPkxNCAbKyL6KfQspfbkdFD y U8xvFvCasPGxKtm+PHRhYmxlI HdpZHRoPScxMDAlJyBzdHlsZT 2bBv0uCCDbTWIkeCocmUOePwY j a5isFFVcMDekXO3ztBqdG9Zmt UY8VYBmq2c4Kv73bDU+PHRkIH F8oUxrVJkjj284FvOdu4xkJXX 3 yAFnIPhhVWC3F18wz7L6VHAnB GReXKS3sFC3aU4ckApdhkyzD9 FzaSIuUjB3OXL1wVAegS1cuBi n yrommH3uMbd+J04GJK8OSETGW D9AZpr1Y9GdGxadvKA+PC90YW WoQN42vHTqpJGvr3comXa4DaG w ELQjCQX1wXoyFGsxv9CuYWGxE 79vxVPnv4X6WYOkeVgmdZXeQd KwgMB5nT0wVRciblfpm9menwz n Xyawp8ouaq49tW27B94yLXwsN LViDHT6PWEiZSDygCpdrl5uoB 9wIi8+MDzdb3sqd6kluBr5AsB w MKIakgGjlHwcRMK2e1FnYk89U 8SfsGwnz7LlCym1md67nSMlb6 J1tHO2WBjlRUPcoR2lWPufIvZ 6 HEBaZeOpeY65iGLpSXeoBp7ze EqzpEejDZ4fJAZravxwUEErfZ 2vUSJjmGIwpVxoNH6wGDJcent m i429FbOdDWG3ZQRjiOPiV2Gdy C1iJsJkGYCuZVIkJ8MjtBSoZE hdE475OJxmKwX5OQJoguLjH1O s VKHkyYnxQzL0g7A2Lw7Ei0Iic qczJFA6PGzjGJVeDcBbSjCdHm X3E0BqXix8BXYqbDocCZ6oQ7K h ZNSrlixqnxozaDL7NSQnYOWzb Q58fONlWAtsQl9mn9T8y377MW SnCLCrnV17Pq8dxVpaRMRomSD U gW3evsqpg7xnpqrzCeNqKLTaL Yk3EPn2AFAglDekUbLjIWZ6Cc R8DNM0zGDjdN4fuRmnhodorQ5 w Oyc+M31ncW3uEFW0BWS3xnwsH JZpkhOmIJ48KE80K5VvYibuzU FibGU+QXWgtwGsqNkqVK4wGeI j n6tlu8FaMGvuM7NfCQTiKJqjX by6ZXUfZDQ4fGE0nH1bVREyBM pga9W0hVC0M6GfpfBnyl4da3c s EXBfTStiB82lxTLtf1I3UPFts JL5KKWxlSwoTsFdmL46Mdl+PG AieTxdt9TgJokvq4dgn5lcuCd 9 WsJxTRDmzrVqbAvsZQN9o8VjS c79H98jHYhvUHLoBBRiEKEjEW UrsRqltz3spA4pZb6+PGNvbCB 3 eBV2uZ8qLFHbYgF9LWbnH994C lLbwUXaXsfbo4gkh6phrDq4Jx GaPKKeqlJboNhyWLF1r5FyDw7 8 A97cMFknCJSmVRMcXMCzLFKmu Lxeth0jzA1xHz1+DE6mr8gpsm 84uB67tCX+QQAaZZN2jHngKPk w WRIniT6yCZzgPmL1HECiMuNyy S11lEToCFhnUe8nsIwdmKbpGB 6vUMXmlnrlk634KmQqr5ymART w pCLjAFdfQTH6V09jq2Z6XYKjB WNbVOU8kVG8gN8jeKlznljlvL NzkXbkodZysIxjPGekZMqcJ36 6 IHRvcDsnPlBhdGllbnQgTmFtZ Mi6K2TmJpm8YPJoqXnrTK7ksG RyQYioSd4blWphpVokAM3xZQL p mhgcm134YaUdb7fpCWYovEXdC BkeZVC3X31kj5U0FMTvQXIdYG Q7mTJ4wR6wlOrnkxmnoDDxuHs g pbVlsPqoVMnjJGuoV272FZYna HlhKvFoxuDzOVNjxYZ1SS37NM 44tYOih1Y2bTR8J9NiBTTrwoh t fjbglKO5LYYzKFSgwP04Sx9xw VhuNi9lDLMeNJF5SFOfcFBjX6 AocA4iWvMdCDIwNZAbL5KsmCV t RRyiI028SVjoWsB0QQKvnwLxR 6VeBXZbvCjlLbT5f3Q3Od8BX8 H7IO18QQ44zURnw7T6dSZ0E2K h BLFkrizhxnpxiJL5ZFYhCVQcg X73Lu3naJvoVa3sNVWpSPV0IX IjyZQfL0LpiI7lZvWbETGgSNJ w N5UrwXTaMRcjP647HVvkSdZ9N GHicoIoP5MnGGFwnJskGrI2h2 D7Uy6DIDj7AH94US36nJOce8E 5 eOU5L6TtGLUgfdbsgzoqxIJ8W HQiCWYzgR80Uo1fyNevOa8tXQ QkBSH9PJXokENwE8BqpP7cNiN j ZSFcTZFxK5PemDUqLRwiV095A XzfFfQ8CFDclaElI9OoFAVnuG iwCgX7v8F6Wn1CDZBbMC55LGE 5 jBM7ES43CF90P0XvNeakuKWjy +PHRhYmxlIHdpZHRoPScxMD HmBvOkjOiiVH6lMj2zNNBqBKF v gIfjsQWvPqIrx5quYADvUQuuR X1baUnfG5PloZX2FVDyo9w8Ys 01N10qU0IiaDX+FGZdrJG9lYM 0 fO5kJlMjJnQ3LGlpM289LgEci AYvTgeot5rhu1pgaNv5PtR4JB JmdhTqzRckWVQ1o3QoXw16P84 s IHdpZHRoPSIxNSUiIHZhbGlnb m4hvQ3wHm6+BUItnXA5zUG4aM 5bVfCiLjS6YDdmQ536HeLwvVH v Itznd7dlo7zstKw2TyHpDNIca rTztBivVGJ4e9ZmOr65B4RwyF usd9SbAmf8cz25fGYwj8A1bYZ 9 M2ZkKRCtbgcypHKlaMeqGC3sP ERxtvplHYFxaW3uMHKmU3n1Ow KyJrG3BTsfP8BbhqE8VXIvoIS g UWslLTF8D75wg5K9FHKvTRPuI JS6nIT5dX3hyZbrrqgrnHDfyM kgmkSffKxfNQanVAacC873WLY v cOwjMCQuzE8fSZWakXWjjPolG R3jQIJrvrrhNgBHYThKSQJcFW AWQUhABdZTZWYEWj06O8KvTit 0 QHIylCiuCR4nbKFeQUwdDe0ac MjaiCynNO3vMAUuzthgNDTyyX 8tPHTlxAZiyJilYX2oXIPytqu m n491PySfFBC3AAFbkIKwT9Twr Z2aMlRwRYUnGBGnL6LovTVkJV mvF658ITydGcC2ZSYdxdYlZ8R s VCUghWviEsL3d4W2Mg4zYl8pL a0aJGMjBE74OG02zLCov0W5wF Q6O9WfZBHulfuiauhkgVK1QNM u SJYyxM03sLNeKKurAs5hx2G9l 335WNVtNBXlyM65Xy5bqXgaWF KeaNPCgE1pnnccc9yspsllTlX w RNIwRYv4SJc1BMHwkGoyWvMmN OF3TdP7DYX9tIXseT9xhGuzwq tthN9nTtd+JoatIOUyptT4F2Y k Jvf7CZDstBshGC3qaXNkGNbwB n5vtHkipMcmHU5fTPUajhagTM WlxT3gYLTgySIxdSybDN0fVBR p gland213HyCeMRE0UWXrrVDcR 0QveI4kIoZnWEPeMQJnT7RpfA AuKPguU351BIcgXyM7QKUiivL p N6GbKIOmfHopPdX4p0G1Mf3UP N0QLBS5A4BwYnb7BJWyuLfiLR 0frFOnNHebJm8ccGdzcGpnIC6 w PKCzclwnCPSoaV1kMHMbfJBcr PscQN3rDKJuknuxf231LgWlBA A7ARCldNZnQ4AihB7oYsIbWAY w YUNjA2ZnjMLzSQvhA959BFmfA qJ1KZGbnlNsI9SyCSQlkKuiKk G3k5E7Td5ZERnfnWR+OM53ro5 8 Y9QwVycuAxa3TRBfFHJ4nRM9g H2sVRXyXEigs6O0xDC4L8Elrh Fdrp5vn6gjAFAyLBjgP81ixMB w n1G7ILQfdQD2RPKrgNeqAoEze G93Oyc+WJOmlQusp7QvCkbwk5 dqd4bmbMe7JrDuUQIqocXmaRc u GTF6x0CmIi12P80dUSlsNHYbW VBfRGZvFIVozUxhod6zfF8oFn 8+VTBbnLK2uIS4lF0pXsHgNxJ 2 ZEebA059XqZkzCWlYybjj5zlw 0schAg7FcIwDXPcpnHpsYupDQ T5f5TgVd17E7MraSdfg7ShMqj 0 bh53uNRkf1I1oRR7L3DmBUGyp ufqoDMkeDmdBJ7rHFShrwglUC IelZ0cFGUrA5s8UeOtHoE7KOg u E6NxuxS5YMSbtEZwOBMwuXKSf L9ochvzx7ezksusUfHmZLLfCJ d5BMn0LTAjaXcdNpUjGZZ1HeG 2 NAT5sPVjiZ2utSgghdopmR4hG yc+GFa0b9bkiHCnJH3paFI5NQ 24FY48fCEty9I9dRN0A1TzECO p xrkkqgpwcBR5VZGgOJKddP51U v1twIrhFy1qQFFjLHQ2GAIbjI WeF9JvqT1aVaOwLLHnDRUzH2U l eUPzHKrtQ141HMdmKiW5EPQwh mMzM5ZkIAUniLilKoB5t8Z8Hl 0ZQF16LV97QY45yMEhe3U2sUW 9 L3JnOOCyckmtvyfdyNM4UMGmA JVhaN44Nv8kjFdrTk5nCCWyEF S4IZZcjQYoN9CafL2ePnTcQBA w JCRlR3NgdTXcAPvxQ947ILozQ fZ3KJEncqLvN8GxVQOpjObxVu P8r3C9Pf0TCi76DU77QJ49cMU g e3K8tRH8A5GeBDMnrafhvltzj LU8IWHwTFWjcU64Ei9zpYdlVu 7dIJBwSPA6XHPhrLNkH7JqgQ4 y DsInDUXvBRNdF2BejYHdWZbzS 650QKmfMoA8YWJtioWjI5BpIC BfsKyfMtQ3z1O2Bd6SMHpltks 8 I5AjVccydYU+XY96LTVkUU52s LNkdVYwl0mivKn5VsWxTZNeAX F0aBbgTXiup5AwKVPgO30njKP w c2U (more content not included)... Normal [facility] Provider Orderson 04-13-2021 Provider Orders [id number] FF [facility] Ferritinon 04-11-2021 Ferritin [Mass/Vol] 157.4 ng/mL High 12.0-150.0 [facility] Comment on above: Performed By: #### 2 [id number], [id number], [id number] #### [facility] (DEFAULT) [address] [place] [address] Hemogram Standardon 04-11-20 21 Breakpoint Hemo Normal [facility] Comment on above: Performed By: #### 2 [id number], [id number] #### [facility] (DEFAULT) [address] [place] [address] Erythrocyte distribution width (RBC) [Ratio] 15.1 % High 11.5-15.0 [facility] Comment on above: Performed By: #### 2 [id number], [id number], [id number] #### [facility] (DEFAULT) [address] [place] [address] Hematocrit (Bld) [Volume fraction] 34.5 % Normal 33.7-40.4 [facility] Comment on above: Performed By: #### 2 [id number], [id number], [id number] #### [facility] (DEFAULT) [address] [place] [address] Hemoglobin (Bld) [Mass/Vol] 10.4 g/dL Low 11.3-15.9 [facility] Comment on above: Performed By: #### 2 [id number], [id number], [id number] #### [facility] (DEFAULT) [address] [place] [address] Instr WBC 7.2 x10 Invalid Interpretation Code [facility] Comment on above: Performed By: #### 2 [id number], [id number], [id number] #### [facility] (DEFAULT) [address] [place] [address] MCH (RBC) [Entitic mass] 30 pg Normal 24-34 [facility] Comment on above: Performed By: #### 2 [id number], [id number], [id number] #### [facility] (DEFAULT) [address] [place] [address] 10480 MCHC (RBC) [Mass/Vol] 30 g/dL Normal 26-37 [facility] Comment on above: Performed By: #### 2 [id number], [id number], [id number] #### [facility] (DEFAULT) [address] [place] [address] 13988 MCV (RBC) [Entitic vol] 101 fL High 81-100 [facility] Comment on above: Performed By: #### 2 [id number], [id number], [id number] #### [facility] (DEFAULT) [address] [place] [address] Platelet 264 x10 Normal 138-427 [facility] Comment on above: Performed By: #### 2 [id number], [id number], [id number] #### [facility] (DEFAULT) [address] [place] [address] Platelet mean volume (Bld) [Entitic vol] 10.0 fL Normal 6.3-10.2 [facility] Comment on above: Performed By: #### 2 [id number], [id number], [id number] #### [facility] (DEFAULT) [address] [place] [address] RBC 3.42 x10 Low 3.70-5.30 [facility] Comment on above: Performed By: #### 2 [id number], [id number], [id number] #### [facility] (DEFAULT) [address] [place] [address] WBC 7.2 x10 Normal 3.5-10.5 [facility] Comment on above: Performed By: #### 2 [id number], [id number], [id number] #### [facility] (DEFAULT) [address] [place] [address] Iron Profileon 04-11-2021 Iron [Mass/Vol] 82.0 ug/dL Normal 28.0-170.0 [facility] Comment on above: Performed By: #### 2 [id number], [id number], [id number] #### [facility] (DEFAULT) [address] [place] [address] Iron Sat 27 % Normal 20-55 [facility] Comment on above: Performed By: #### 2 [id number], [id number], [id number] #### [facility] (DEFAULT) [address] [place] [address] TIBC 305 mcg/dL Normal 250-400 [facility] Comment on above: Performed By: #### 2 [id number], [id number], [id number] #### [facility] (DEFAULT) [address] [place] [address] Transferrin [Mass/Vol] 218.1 mg/dL Normal 192.0 -382. 0 [facility] Comment on above: Performed By: #### 2 [id number], [id number], [id number] #### [facility] (DEFAULT) [address] [place] [address] Vital Signs Date Time Vital Sign Value Performing Clinician Elma panda 05-21-2024 10:07-0500 Body height 167.6 cm Kelle Leon DO Work Phone: [facility] 05-21-2024 10:07-0500 Body mass index (BMI) [Ratio] 52.36 kg/m2 Kelle Leon DO Work Phone: [facility] 05-21-2024 10:07-0500 Body weight 147.15 kg Kelle Leon DO Work Phone: [facility] 05-21-2024 10:07-0500 Diastolic blood pressure 80 mm[Hg] Kelle Leon DO Work Phone: [facility] 05-21-2024 10:07-0500 Heart rate 120 /min Kelle Leon DO Work Phone: [facility] 05-21-2024 10:07-0500 SaO2% (BldA) [Mass fraction] 95 % Kelle Leon DO Work Phone: [facility] 05-21-2024 10:07-0500 Systolic blood pressure 154 mm[Hg] Kelle Leon DO Work Phone: [facility] 04-10-2024 11:11-0400 Body height 167.6 cm [facility]ickson [facility] 04-10-2024 11:11-0400 Body mass index (BMI) [Ratio] 53.36 kg/m2 Fabricio [facility]ickson [facility] 04-10-2024 11:11-0400 Body weight 149.96 kg Fabricio Dickson MD Work Phone: [facility] 04-10-2024 11:11-0400 Diastolic blood pressure 76 mm[Hg] Fabricio Dickson MD Work Phone: [facility] 04-10-2024 11:11-0400 Heart rate 60 /min Fabricio Dickson MD Work Phone: [facility] 04-10-2024 11:11-0400 SaO2% (BldA) [Mass fraction] 94 % Fabricio Dickson MD Work Phone: [facility] 04-10-2024 11:11-0400 Systolic blood pressure 138 mm[Hg] Fabricio Dickson MD Work Phone: [facility] 02-24-2024 11:11-0400 Body height 167.64 cm MD Sondra Boswell Work Phone: [facility] 02-24-2024 11:11-0400 Body mass index (BMI) [Ratio] 52.7 kg/m2 MD Sondra Boswell Work Phone: [facility] 02-24-2024 11:11-0400 Body temperature 96.4 [degF] MD Sondra Boswell Work Phone: [facility] 02-24-2024 11:11-0400 Body weight 148.04 kg MD Sondra Boswell Work Phone: [facility] 02-24-2024 11:11-0400 Diastolic blood pressure 50 mm[Hg] MD Sondra Boswell Work Phone: [facility] 02-24-2024 11:11-0400 Heart rate 58 /min MD Sondra Boswell Work Phone: [facility] 02-24-2024 11:11-0400 Respiratory rate 18 /min MD Sondra Boswell Work Phone: [facility] 02-24-2024 11:11-0400 SaO2% (BldA) [Mass fraction] 96 % MD Sondra Boswell Work Phone: [facility] 02-24-2024 11:11-0400 Systolic blood pressure 164 mm[Hg] MD Sondra Boswell Work Phone: [facility] 01-21-2024 10:05-0400 Body height 167.64 cm MD Sondra Boswell Work Phone: [facility] 01-21-2024 10:05-0400 Body mass index (BMI) [Ratio] 50 kg/m2 MD Sondra Boswell Work Phone: [facility] 01-21-2024 10:05-0400 Body weight 140.61 kg MD Sondra Boswell Work Phone: [facility] 01-21-2024 10:05-0400 Diastolic blood pressure 51 mm[Hg] MD Sondra Boswell Work Phone: [facility] 01-21-2024 10:05-0400 Heart rate 59 /min MD Sondra Boswell Work Phone: [facility] 01-21-2024 10:05-0400 SaO2% (BldA) [Mass fraction] 90 % MD Sondra Boswell Work Phone: [facility] 01-21-2024 10:05-0400 Systolic blood pressure 142 mm[Hg] MD Sondra Boswell Work Phone: [facility] 08-07-2023 10:20-0500 Body height 167.64 cm Bette Diaz Other [employer] Other 08-07-2023 10:20-0500 Body mass index (BMI) [Ratio] 54.74 kg/m2 Bette Joe Other [employer] Other 08-07-2023 10:20-0500 Body temperature 96.8 [degF] Bette Joe Other [employer] Other 08-07-2023 10:20-0500 Body weight 153.86 kg Bette Joe Other [employer] Other 08-07-2023 10:20-0500 Diastolic blood pressure 65 mm[Hg] Bette Joe Other [employer] Other 08-07-2023 10:20-0500 Respiratory rate 22 /min Bette Joe Other [employer] Other 08-07-2023 10:20-0500 SaO2% (BldA) [Mass fraction] 88 % Bette Joe Other [employer] Other 08-07-2023 10:20-0500 Systolic blood pressure 168 mm[Hg] Bette Joe Other [employer] Other 05-14-2023 14:20-0500 Body height 167.64 cm Bette Joe Other [employer] Other 05-14-2023 14:20-0500 Body mass index (BMI) [Ratio] 52.77 kg/m2 Bette Joe Other [employer] Other 05-14-2023 14:20-0500 Body temperature 96.1 [degF] Bette Joe Other [employer] Other 05-14-2023 14:20-0500 Body weight 148.33 kg Bette Joe Other [employer] Other 05-14-2023 14:20-0500 Diastolic blood pressure 65 mm[Hg] Bette Joe Other [employer] Other 05-14-2023 14:20-0500 Respiratory rate 20 /min Bette Joe Other [employer] Other 05-14-2023 14:20-0500 SaO2% (BldA) [Mass fraction] 94 % Bette Joe Other [employer] Other 05-14-2023 14:20-0500 Systolic blood pressure 187 mm[Hg] Bette Joe Other [employer] Other 05-06-2023 13:30-0400 Body temperature 97.3 [degF] MD Sondra Boswell Work Phone: [facility] 05-06-2023 13:30-0400 Diastolic blood pressure 72 mm[Hg] MD Sondra Boswell Work Phone: [facility] 05-06-2023 13:30-0400 Heart rate 51 /min MD Sondra Boswell Work Phone: [facility] 05-06-2023 13:30-0400 Inhaled oxygen flow rate 2 L/min MD Sondra Boswell Work Phone: [facility] 05-06-2023 13:30-0400 Respiratory rate 18 /min MD Sondra Boswell Work Phone: [facility] 05-06-2023 13:30-0400 SaO2% (BldA) [Mass fraction] 97 % MD Sondra Boswell Work Phone: [facility] 05-06-2023 13:30-0400 Systolic blood pressure 156 mm[Hg] MD Sondra Boswell Work Phone: [facility] 05-06-2023 03:49-0400 Body weight 146.8 kg MD Sondra Boswell Work Phone: [facility] 05-03-2023 16:35-0400 Diastolic blood pressure 75 mm[Hg] MD Sondra Boswell Work Phone: [phone] [place] [address] 05-03-2023 16:35-0400 Heart rate 51 /min MD Sondra Boswell Work Phone: [facility] 05-03-2023 16:35-0400 Respiratory rate 18 /min MD Sondra Boswell Work Phone: [facility] 05-03-2023 16:35-0400 SaO2% (BldA) [Mass fraction] 95 % MD Sondra Boswell Work Phone: [facility] 05-03-2023 16:35-0400 Systolic blood pressure 189 mm[Hg] MD Sondra Boswell Work Phone: [facility] 05-03-2023 14:01-0400 Body height 167.64 cm MD Sondra Boswell Work Phone: [facility] 05-03-2023 14:01-0400 Body temperature 97.5 [degF] MD Sondra Boswell Work Phone: [facility] 05-03-2023 14:01-0400 Body weight 148.32 kg MD Sondra Boswell Work Phone: [facility] 04-03-2023 11:00-0400 Body height 167.64 cm Bette Diaz Other [employer] Other 04-03-2023 11:00-0400 Body mass index (BMI) [Ratio] 53.58 kg/m2 Bette Joe Other [employer] Other 04-03-2023 11:00-0400 Body weight 150.6 kg Bette Joe Other [employer] Other 04-03-2023 11:00-0400 Diastolic blood pressure 69 mm[Hg] Bette Joe Other [employer] Other 04-03-2023 11:00-0400 Respiratory rate 20 /min Bette Joe Other [employer] Other 04-03-2023 11:00-0400 SaO2% (BldA) [Mass fraction] 94 % Bette Joe Other [employer] Other 04-03-2023 11:00-0400 Systolic blood pressure 194 mm[Hg] Bette Joe Other [employer] Other 01-18-2023 11:00-0400 Body height 167.64 cm Sil Oneill Other [employer] Other 01-18-2023 11:00-0400 Body mass index (BMI) [Ratio] 52.29 kg/m2 Sil Oneill Other [employer] Other 01-18-2023 11:00-0400 Body weight 146.97 kg Sil Oneill Other [employer] Other 01-18-2023 11:00-0400 Diastolic blood pressure 62 mm[Hg] Sil Oneill Other [employer] Other 01-18-2023 11:00-0400 SaO2% (BldA) [Mass fraction] 93 % Sil Oneill Other [employer] Other 01-18-2023 11:00-0400 Systolic blood pressure 153 mm[Hg] Sil Oneill Other [employer] Other 09-05-2022 15:20-0500 Body height 167.64 cm Bette Joe Other [employer] Other 09-05-2022 15:20-0500 Body mass index (BMI) [Ratio] 50.68 kg/m2 Bette Joe Other [employer] Other 09-05-2022 15:20-0500 Body temperature 96.7 [degF] Bette Joe Other [employer] Other 09-05-2022 15:20-0500 Body weight 142.43 kg Bette Joe Other [employer] Other 09-05-2022 15:20-0500 Diastolic blood pressure 62 mm[Hg] Bette Joe Other [employer] Other 09-05-2022 15:20-0500 Respiratory rate 18 /min Bette Joe Other [employer] Other 09-05-2022 15:20-0500 SaO2% (BldA) [Mass fraction] 93 % Bette Joe Other [employer] Other 09-05-2022 15:20-0500 Systolic blood pressure 162 mm[Hg] Bette Joe Other [employer] Other 05-02-2022 12:20-0400 Body height 167.64 cm Bette Joe Other [employer] Other 05-02-2022 12:20-0400 Body mass index (BMI) [Ratio] 51.16 kg/m2 Bette Joe Other [employer] Other 05-02-2022 12:20-0400 Body temperature 96.2 [degF] Bette Joe Other [employer] Other 05-02-2022 12:20-0400 Body weight 143.79 kg Bette Joe Other [employer] Other 05-02-2022 12:20-0400 Diastolic blood pressure 72 mm[Hg] Bette Joe Other [employer] Other 05-02-2022 12:20-0400 Respiratory rate 18 /min Bette Joe Other [employer] Other 05-02-2022 12:20-0400 SaO2% (BldA) [Mass fraction] 90 % Bette Joe Other [employer] Other 05-02-2022 12:20-0400 Systolic blood pressure 120 mm[Hg] Bette Joe Other [employer] Other 11-29-2021 16:45-0400 Body height 167.64 cm Bam Garcia Other [employer] Other 11-29-2021 16:45-0400 Body mass index (BMI) [Ratio] 49.55 kg/m2 Bam Garcia Other [employer] Other 11-29-2021 16:45-0400 Body weight 139.26 kg Bam Garcia Other [employer] Other 11-29-2021 16:45-0400 Diastolic blood pressure 73 mm[Hg] Bam Garcia Other [employer] Other 11-29-2021 16:45-0400 SaO2% (BldA) [Mass fraction] 95 % Bam Garcia Other [employer] Other 11-29-2021 16:45-0400 Systolic blood pressure 200 mm[Hg] Bam Garcia Other [employer] Other 10-04-2021 12:00-0400 Body height 167.64 cm Bette Joe Other [employer] Other 10-04-2021 12:00-0400 Body mass index (BMI) [Ratio] 49.14 kg/m2 Bette Joe Other [employer] Other 10-04-2021 12:00-0400 Body temperature 95.5 [degF] Bette Joe Other [employer] Other 10-04-2021 12:00-0400 Body weight 138.12 kg Bette Joe Other [employer] Other 10-04-2021 12:00-0400 Diastolic blood pressure 72 mm[Hg] Bette Joe Other [employer] Other 10-04-2021 12:00-0400 Respiratory rate 20 /min Bette Joe Other [employer] Other 10-04-2021 12:00-0400 SaO2% (BldA) [Mass fraction] 96 % Bette Joe Other [employer] Other 10-04-2021 12:00-0400 Systolic blood pressure 128 mm[Hg] Bette Joe Other [employer] Other 06-20-2021 11:00-0500 Body height 167.64 cm Bette Joe Other [employer] Other 06-20-2021 11:00-0500 Body mass index (BMI) [Ratio] 48.87 kg/m2 Bette Joe Other [employer] Other 06-20-2021 11:00-0500 Body weight 137.35 kg Bette Joe Other [employer] Other 06-20-2021 11:00-0500 Diastolic blood pressure 61 mm[Hg] Bette Joe Other [employer] Other 06-20-2021 11:00-0500 Respiratory rate 20 /min Bette Joe Other [employer] Other 06-20-2021 11:00-0500 SaO2% (BldA) [Mass fraction] 97 % Bette Joe Other [employer] Other 06-20-2021 11:00-0500 Systolic blood pressure 160 mm[Hg] Bette Joe Other [employer] Other 05-17-2021 11:00-0500 Body height 167.64 cm Bam Garcia Other [employer] Other 05-17-2021 11:00-0500 Diastolic blood pressure 40 mm[Hg] Bam Garcia Other [employer] Other 05-17-2021 11:00-0500 SaO2% (BldA) [Mass fraction] 96 % Bam Jose Other [employer] Other 05-17-2021 11:00-0500 Systolic blood pressure 112 mm[Hg] Bam Garcia Other [employer] Other 04-11-2021 11:40-0400 Body height 167.64 cm Bette Joe Other [employer] Other 04-11-2021 11:40-0400 Body mass index (BMI) [Ratio] 51.32 kg/m2 Bette Joe Other [employer] Other 04-11-2021 11:40-0400 Body temperature 96.4 [degF] Bette Joe Other [employer] Other 04-11-2021 11:40-0400 Body weight 144.24 kg Bette Joe Other [employer] Other 04-11-2021 11:40-0400 Diastolic blood pressure 60 mm[Hg] Bette Joe Other [employer] Other 04-11-2021 11:40-0400 Respiratory rate 20 /min Bette Joe Other [employer] Other 04-11-2021 11:40-0400 SaO2% (BldA) [Mass fraction] 90 % Bette Joe Other [employer] Other 04-11-2021 11:40-0400 Systolic blood pressure 130 mm[Hg] Bette Joe Other [employer] Other Encounters Encounter Date Encounter Type Care Provider Facility Start: 05-22-2024 End: 05-22-2024 [facility] Start: 05-21-2024 End: 05-21-2024 Office outpatient new 45 minutes Kelle Leon DO Work Phone: [facility] Comment on above: BMI 50.0-59.9, adult ([facility]) (Primary Dx); Shortness of breath; Pulmonary hypertension ([facility]); Valvular heart disease Start: 05-21-2024 End: 05-21-2024 ambulatory [facility] Start: 05-12-2024 End: 05-12-2024 ambulatory FABRICIO DICKSON [facility] Start: 04-21-2024 End: 04-21-2024 ambulatory [facility] Start: 04-20-2024 End: 04-20-2024 Telephone encounter Luzmaria Williamson RN [facility] Start: 04-16-2024 End: 04-16-2024 ambulatory [facility] Start: 04-10-2024 End: 04-10-2024 Office outpatient visit 25 minutes Fabricio Dickson MD Work Phone: [facility] Comment on above: Chronic diastolic he art failure ([facility]) (Primary Dx); Heart failure with preserved left ventricular function (HFpEF) ([facility]); Essential hypertension; Shortness of breath; Stage 3b chronic kidney disease (CKD) ([facility]); Lymphedema; Mixed hyperlipidemia; Pulmonary hypertension ([facility]) Start: 04-10-2024 End: 04-10-2024 ambulatory FABRICIO DICKSON [facility] Start: 02-24-2024 End: 02-24-2024 ambulatory MD Sondra Boswell Work Phone: [facility] Work Phone: Start: 02-24-2024 End: 02-24-2024 Patient encounter procedure MD Sondra Boswell Work Phone: [facility] [place] Work Phone: Start: 01-21-2024 End: 01-21-2024 ambulatory MD Sondra Boswell Work Phone: [facility] Work Phone: Start: 01-21-2024 End: 01-21-2024 Patient encounter procedure MD Sondra Boswell Work Phone: [facility] Work Phone: Start: 01-14-2024 End: 01-14-2024 ambulatory MD Sondra Boswell Work Phone: [facility] Work Phone: Start: 01-14-2024 End: 01-14-2024 Patient encounter procedure MD Sondra Boswell Work Phone: [facility] [place] Work Phone: Start: 12-17-2023 End: 12-17-2023 ambulatory ESTRELLITA A [place] Not Available Start: 11-21-2023 End: 11-21-2023 ambulatory ESTRELLITA A [place] Not Available Start: 09-11-2023 End: 09-11-2023 ambulatory Bette Joe Facility:[facility] Start: 08-27-2023 End: 08-27-2023 ambulatory ESTRELLITA FISCHER Not Available Start: 08-16-2023 End: 08-16-2023 ambulatory Bette Joe Other [employer] Other Start: 08-16-2023 Telephone encounter Bette Joe [facility] Start: 08-15-2023 End: 08-15-2023 ambulatory Bette Joe Other [employer] Other Start: 08-15-2023 Telephone encounter Bette Joe [facility] Start: 08-14-2023 Refill Sondra donald MD Work Phone: [facility] Comment on above: Chronic gout without tophus, unspecified cause, unspecified site (Primary Dx) Start: 08-13-2023 Refill Sonia Damian NP Work Phone: [facility] Comment on above: Mixed hyperlipidemia (CMS/HCC) Start: 08-12-2023 End: 08-12-2023 ambulatory Bette Joe Facility:[facility] Start: 08-12-2023 End: 08-12-2023 ambulatory MD Bette Diaz Work Phone: [facility] Work Phone: Start: 08-12-2023 End: 08-12-2023 Patient encounter procedure MD Bette Diaz Work Phone: [facility] [place] Work Phone: Start: 08-07-2023 End: 08-07-2023 ambulatory Bette Joe Other [employer] Other Start: 08-07-2023 Office outpatient vi sit 25 minutes Bette Joe [facility] [place] Start: 08-07-2023 Telephone encounter Bette Joe [facility] Start: 08-01-2023 End: 08-01-2023 ambulatory SONDRA BOSWELL Not Available Start: 07-29-2023 End: 07-29-2023 ambulatory Bette Joe Facility:[facility] Start: 07-29-2023 End: 07-29-2023 ambulatory MD Sondra Boswell Work Phone: [facility] Work Phone: Start: 07-29-2023 End: 07-29-2023 Patient encounter procedure MD Sondra Boswell Work Phone: [facility] [place] Work Phone: Start: 07-17-2023 End: 07-17-2023 ambulatory Bette Joe Other [employer] Other Start: 07-17-2023 Encounter by compute r link Bette Joe [facility] Start: 06-03-2023 End: 06-03-2023 ambulatory Bette Joe Other [employer] Other Start: 06-03-2023 Encounter by compute r link Bette Joe [facility] Start: 05-30-2023 End: 05-30-2023 ambulatory Bette Joe Other [employer] Other Start: 05-30-2023 Encounter by compute r link Bette Joe [facility] Start: 05-29-2023 End: 05-29-2023 ambulatory [place] Not Available Start: 05-14-2023 End: 05-14-2023 ambulatory Bette Joe Facility:[facility] Start: 05-14-2023 End: 05-14-2023 Patient encounter procedure MD Sondra Boswell Work Phone: [facility] [place] Work Phone: Start: 05-14-2023 End: 05-14-2023 ambulatory MD Sondra Boswell Work Phone: [facility] Work Phone: Start: 05-14-2023 Office outpatient vi sit 25 minutes Bette Joe [facility] Start: 05-14-2023 End: 05-14-2023 Patient encounter procedure MD Sondra Boswell Work Phone: [facility] Work Phone: Start: 05-05-2023 End: 05-06-2023 Evaluation and management of inpatient Sondra Boswell Facility:[facility] Start: 05-05-2023 End: 05-06-2023 Evaluation and management of inpatient MD Sondra Boswell Work Phone: [facility] Work Phone: Start: 05-03-2023 Evaluation and management of inpatient MD Sondra Boswell Work Phone: [facility] Work Phone: Start: 05-03-2023 observation encounter MD Cierra Boswell Work Phone: [facility] Work Phone: Start: 04-25-2023 End: 04-25-2023 ambulatory Bette Joe Other [employer] Other Start: 04-25-2023 Encounter by compute r link Bette Joe [facility] Start: 04-21-2023 End: 04-21-2023 ambulatory Bette Joe Other [employer] Other Start: 04-21-2023 Encounter by compute r link Bette Joe [facility] Start: 04-03-2023 End: 04-03-2023 ambulatory Bette Joe Other [employer] Other Start: 04-03-2023 Office outpatient vi sit 25 minutes Bette Joe [facility] [place] Start: 03-25-2023 End: 03-25-2023 ambulatory Bette Joe Facility:[facility] Start: 03-25-2023 End: 03-25-2023 ambulatory MD Sondra Boswell Work Phone: [facility] Work Phone: Start: 03-25-2023 End: 03-25-2023 Patient encounter procedure MD Sondra Boswell Work Phone: [facility] [place] Work Phone: Start: 01-18-2023 Office outpatient vi sit 15 minutes Sil Oneill [facility] Start: 01-18-2023 End: 01-18-2023 ambulatory MD Sondra Boswell Work Phone: [employer] Other Start: 01-18-2023 End: 01-18-2023 Patient encounter procedure MD Sondra Boswell Work Phone: [facility] Work Phone: Start: 12-30-2022 End: 12-30-2022 ambulatory Bette Joe Other [employer] Other Start: 12-30-2022 Encounter by matthew r link Bette Joe [facility] Start: 09-05-2022 End: 09-05-2022 ambulatory Bette Joe Other [employer] Other Start: 09-05-2022 Office outpatient vi sit 25 minutes Bette Joe [facility] [place] Start: 05-02-2022 End: 05-02-2022 ambulatory Bette Joe Other [employer] Other Start: 05-02-2022 Office outpatient vi sit 25 minutes Bette Joe [facility] [place] Start: 04-25-2022 End: 04-25-2022 ambulatory MD Bette Diaz Work Phone: [facility] Work Phone: Start: 04-25-2022 End: 04-25-2022 Patient encounter procedure MD Bette Diaz Work Phone: [facility] [place] Start: 03-26-2022 End: 03-26-2022 Patient encounter procedure MD Bette Diaz Work Phone: [facility] [place] Start: 11-29-2021 End: 11-29-2021 ambulatory Bam Garcia Other [employer] Other Start: 11-29-2021 Office outpatient vi sit 25 minutes Bam Garcia [facility] Start: 10-17-2021 End: 10-17-2021 ambulatory Bette Joe Other [employer] Other Start: 10-17-2021 Encounter by matthew wright link Bette Joe [facility] Start: 10-04-2021 End: 10-04-2021 ambulatory Bette Joe Other [employer] Other Start: 10-04-2021 Office outpatient vi sit 15 minutes Bette Joe [facility] [place] Start: 06-20-2021 End: 06-20-2021 ambulatory Bette Joe Other [employer] Other Start: 06-20-2021 Office outpatient vi sit 25 minutes Bette Joe [facility] Start: 05-17-2021 End: 05-17-2021 ambulatory Bam Garcia Other [employer] Other Start: 05-17-2021 Office outpatient ne w 45 minutes [facility] Start: 04-25-2021 Encounter by matthew hogue Bette Martelldir [facility] Start: 04-11-2021 Office outpatient vi sit 25 minutes Bette Joe [facility] [place] Start: 04-11-2021 Telephone encounter Bette Diaz [facility] Start: 08-08-2017 Ambulatory BETTE DIAZ Facility: 1 Procedures Date Procedure Procedure Detail Performing Clinician Start: 04-10-2024 Ecg routine ecg w/le ast 12 lds w/i&r Fabricio Dickson MD Work Phone: Start: 04-10-2024 Follow-up visit Follow-up FABRICIO DICKSON Start: 05-03-2023 Plain chest X-ray MD Jose Alejandro Boswell Work Phone: Plan of Treatment Date Care Activity Detail Author Start: 04-20-2030 DTaP,Tdap and Td Vaccines (3 - Td or Tdap) DTaP,Tdap and Td Vaccines (3 - Td or Tdap) [facility] Start: 07-02-2025 Glaucoma screening Diabetes: Retinopathy Screening [facility] Start: 05-21-2025 Tobacco Screening Tobacco Screening [facility] Start: 04-10-2025 Adult BMI Screening Adult BMI Screening [facility] Start: 04-10-2025 Tobacco Screening Tobacco Screening [facility] Start: 09-24-2024 End: 09-24-2024 Patient encounter procedure 09/24/2024 10:30 AM EDT Office Visit [facility] [address] [place] [address] Kelle Leon DO [address] [address] [facility] Start: 07-10-2024 End: 07-10-2024 Patient encounter procedure 07/10/2024 1:15 PM EST Office Visit [facility] [address] [facility] [address] [facility] [place] [address] Farbicio Dickson MD [address] [place] [address] [facility] Start: 05-26-2024 End: 05-26-2024 ambulatory 05/26/2024 12:00 PM EST Monitor [facility] [address] [address] Kelle Leon, DO [address] [address] [facility] Start: 05-21-2024 End: 05-21-2024 Patient encounter procedure 05/21/2024 10:00 AM EST Office Visit [facility] [address] [place] [address] Kelle Leon, DO [address] [address] [facility] Start: 05-12-2024 End: 05-12-2024 Patient encounter procedure 05/12/2024 9:30 AM EST Appointment [facility] - Cardiovascular [address] [place] [address] Fabricio Dickson MD [address] [place] [address] [facility] Start: 04-27-2024 End: 04-10-2025 Echo complete W/O contrast Echo complete W/O contrast Echocardiography Routine Shortness of breath Pulmonary hypertension ([facility]) Expected: 04/27/2024, Expires: 04/10/2025 [facility] Comment on above: Expected: 04/27/2024, Expires: Start: 04-21-2024 End: 04-21-2024 Patient encounter procedure [facility] Start: 03-08-2024 COVID-19 Vaccine ( season) COVID-19 Vaccine ( season) [facility] Start: 03-08-2024 COVID-19 Vaccine ( season) COVID-19 Vaccine ( season) [facility] Start: 03-08-2024 Influenza vaccination Influenza Vaccine [facility] Start: 08-29-2023 Hemoglobin A1c measurement Diabetes: Hemoglobin A1C [facility] Start: 08-28-2023 End: 08-28-2023 Patient encounter procedure 08/28/2023 11:00 AM EST Office Visit [facility] [address] [place] [id number] Sonia Damian NP [address] [place] [address] [facility] Start: 08-24-2023 Medicare Annual Wellness (AWV) Medicare Annual Wellness (AWV) [facility] Start: 05-06-2023 [facility] Start: 05-03-[address] 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 [facility] Start: 05-03-2023 Hospital admission [facility] Start: 05-03-2023 [facility] Start: 09-02-2012 Administration of varicella zoster vaccine Zoster (Shingles) Vaccine (2 of 3) [facility] Start: 2006 Fall Risk Screening Fall Risk Screening [facility] Start: 1953 Depression Screening Depression Screening [facility] Start: 1941 Medicare Annual Wellness Visit Medicare Annual Wellness Visit [facility] End: 04-20-2025 Alanine aminotransferase [Enzymatic activity/volume] in Serum or Plasma ALT Lab Routine Heart failure with preserved left ventricular function (HFpEF) ([facility]) Elevated liver enzymes 1 Occurrences starting 04/20/2024 until 04/20/2025 [facility] Work Phone: Comment on above: 1 Occurrences starting 04/20/2024 until 04/20/2025 End: 04-20-2025 Alkaline phosphatase [Enzymatic activity/volume] in Serum or Plasma Alkaline phosphatase Lab Routine Heart failure with preserved left ventricular function (HFpEF) (CMS-HCC) Elevated liver enzymes 1 Occurrences starting 04/20/2024 until 04/20/2025 [employer] Comment on above: 1 Occurrences starting 04/20/2024 until 04/20/2025 End: 04-20-2025 Aspartate aminotransferase [Enzymatic activity/volume] in Serum or Plasma AST Lab Routine Heart failure with preserved left ventricular function (HFpEF) (CMS-HCC) Elevated liver enzymes 1 Occurrences starting 04/20/2024 until 04/20/2025 [employer] Comment on above: 1 Occurrences starting 04/20/2024 until 04/20/2025 End: 04-20-2025 Bilirubin.total [Mass/volume] in Serum or Plasma Bilirubin, total Lab Routine Heart failure with preserved left ventricular function (HFpEF) (CMS-HCC) Elevated liver enzymes 1 Occurrences starting 04/20/2024 until 04/20/2025 [employer] Comment on above: 1 Occurrences starting 04/20/2024 until 04/20/2025 Blood chemistry [facility] End: 04-10-2025 CBC panel - Blood by Automated count CBC Lab Routine Shortness of breath 1 Occurrences starting 04/10/2024 until 04/10/2025 [employer] Comment on above: 1 Occurrences starting 04/10/2024 until 04/10/2025 End: 04-10-2025 Comprehensive metabolic 2000 panel - Serum or Plasma CMP Lab Routine Essential hypertension 1 Occurrences starting 04/10/2024 until 04/10/2025 [employer] Comment on above: 1 Occurrences starting 04/10/2024 until 04/10/2025 End: 05-21-2025 Home O2 eval (desaturation screen) Home O2 eval (desaturation screen) Respiratory Care Routine Shortness of breath Pulmonary hypertension ([facility]) 1 Occurrences starting 05/21/2024 until 05/21/2025 [employer] Work Phone: Comment on above: 1 Occurrences starting 05/21/2024 until 05/21/2025 End: 04-10-2025 Lipid panel Lipid panel Lab Routine Mixed hyperlipidemia 1 Occurrences starting 04/10/2024 until 04/10/2025 [employer] Work Phone: Comment on above: 1 Occurrences starting 04/10/2024 until 04/10/2025 Patient referral [facility] Work Phone: Renal function 2000 panel - Serum or Plasma [facility] Immunizations Immunization Date Immunization Notes Care Provider Bebe royal 05-06-2023 Fluzone QIV High-Dos e 65YR+ MD Sondra Boswell Work Phone: [facility] 05-06-2023 influenza virus vaccine, unspecified formulation Fabricio Dickson MD Work Phone: [facility] 04-03-2022 influenza, injectabl e, quadrivalent, preservative free Sonia Kampfer [employer] Work Phone: [facility] 04-03-2022 Moderna Bivalent Booster Vaccination Sonia Kampfer [employer] Work Phone: [facility] Work Phone: 05-23-2021 COVID-19 Vaccine Pfi zer - Documentation Purposes Only Bette Joe Other [facility] 04-04-2021 Influenza, High-dose Seasonal, Quadrivalent, Preservative Free Sonia Kampfer [employer] Work Phone: [facility] 09-02-2020 COVID-19 Vaccine Pfi zer - Documentation Purposes Only Bette Joe Other [facility] 08-12-2020 COVID-19 Vaccine Pfi zer - Documentation Purposes Only Bette Joe Other [facility] 04-21-2020 tetanus toxoid, redu wiliam diphtheria toxoid, and acellular pertussis vaccine, adsorbed Sonia Kampfer [employer] Work Phone: [facility] 04-20-2020 tetanus toxoid, redu wiliam diphtheria toxoid, and acellular pertussis vaccine, adsorbed Sonia Kampfer [employer] Work Phone: [facility] 03-29-2020 Influenza, High-dose Seasonal, Quadrivalent, Preservative Free Sonia Kampfer [employer] Work Phone: [facility] 04-24-2019 Influenza, High-dose Seasonal, Quadrivalent, Preservative Free Sonia Kampfer [employer] Work Phone: [facility] 06-20-2018 Influenza, High-dose Seasonal, Quadrivalent, Preservative Free Sonia Kampfer [employer] Work Phone: [facility] 03-27-2017 influenza, high dose seasonal, preservative-free Sonia Kampfer [employer] Work Phone: [facility] 05-24-2016 influenza, injectabl e, quadrivalent, preservative free Sonia Kampfer [employer] Work Phone: [facility] 05-24-2016 pneumococcal polysaccharide vaccine, 23 valent Sonia Kampfer [employer] Work Phone: [facility] 05-24-2015 pneumococcal conjuga te vaccine, 13 valent Sonia Kampfer [employer] Work Phone: [facility] 04-21-2015 influenza, high dose seasonal, preservative-free Sonia Kampfer [employer] Work Phone: [facility] 04-21-2013 influenza virus vaccine, unspecified formulation MD Sondra Boswell Work Phone: [facility] 04-21-2013 influenza, high dose seasonal, preservative-free Bette Joe Other [facility] 07-08-2012 zoster vaccine, live Sonia K ampfer [employer] Work Phone: [facility] 07-08-2012 zoster vaccine, unspecified formulation Fabricio Dickson MD Work Phone: [facility] 06-24-2012 tetanus toxoid, redu wiliam diphtheria toxoid, and acellular pertussis vaccine, adsorbed Sonia Kampfer [employer] Work Phone: [facility] 04-11-2012 influenza, high dose seasonal, preservative-free Sonia Kampfer [employer] Work Phone: [facility] 05-17-2011 seasonal influenza, intradermal, preservative free Sonia Kampfer [employer] Work Phone: [facility] 04-13-2010 seasonal influenza, intradermal, preservative free Sonia Damian [employer] Work Phone: [facility] 04-27-2008 pneumococcal polysaccharide vaccine, 23 valent Sonia Damian [employer] Work Phone: [facility] Healthcare Payers Date Payer Category Payer Unknown AARP AARP [id number] 2022-Present [address] [place] [id number] 2022 Self-pay [id number] 2012 Managed Care Other (unspecified) [facility] Member Subscriber Plan / Payer (Effective 2012-Present) Name: Leia Amaya Relation to Subscriber: Self Name: Leia Amaya Payer ID: [id number] (NAIC) Group ID: [id number] Type: Not on file Address: [address] [place] [id number] 2012 Private Health Insurance [facility] AARP SUPPLEMENT [id number] 2012-Present [phone] [address] [place] [address] [id number] 2012 Unknown [id number] 2006 Medicare [id number] 2006 Medicare [id number] 1959 Self-pay [id number] 1940 Unknown [id number] 2.16.840.1.089149.3.579.2 .1259 1941 Unknown [id number] 2.16.840.1.567457.3.579.2 .1259 1941 Unknown [id number] 2.16.840.1.534782.3.579.2 .1259 1941 Unknown [id number] 2.16.840.1.335026.3.579.2 .1259 1941 Unknown [id number] 2.16.840.1.517800.3.579.2 .1259 1941 Unknown [id number] 2.16.840.1.899744.3.579.2 .1286 1941 Unknown [id number] 2.16.840.1.579916.3.579.2 .1286 1941 Unknown [id number] 2.16.840.1.716419.3.579.2 .1286 1941 Unknown [id number] 2.16.840.1.114029.3.579.2 .1286 1941 Unknown [id number] 2.16.840.1.444745.3.579.2 .1286 1941 Unknown [id number] 2.16.840.1.283742.3.579.2 .1286 Unknown [id number] 2.16.840.1.807106.3.579.2 .531 Unknown [id number] 2.16.840.1.341088.3.579.2 .531 Unknown [id number] 2.16.840.1.335343.3.579.2 .531 Unknown [id number] 2.16.840.1.138938.3.579.2 .531 Unknown [id number] 2.16.840.1.394205.3.579.2 .531 Unknown [id number] 2.16.840.1.851255.3.579.2 .531 Unknown [id number] 2.16.840.1.023550.3.579.2 .531 Social History Date Type Detail Facility Unknown if ever smoked [employer] Other Start: 07-21-2020 End: 02-19-2023 Sex Assigned At [facility] Start: 1940 Sex Assigned At Female F [facility] Start: 05-03-2023 End: 09-18-2023 Tobacco smoking status [facility] Never smoked tobacco (finding) [facility] Start: 02-23-2023 End: 05-21-2024 Tobacco smoking status [facility] Ex-smoker [facility] Start: 03-08-1959 End: 12-07-1959 History of tobacco use Current smoker [facility] Start: 03-08-1959 End: 12-07-1959 History of tobacco use Cigarette Smoker [facility] Start: 07-21-2020 End: 02-23-2023 Cigarettes smoked current (pack per day) - Reported 0.3 [facility] Start: 02-23-2023 End: 05-21-2024 Tobacco use and exposure Smokeless tobacco non-user [facility] Start: 08-01-2023 Alcohol intake Current drinke r of alcohol (finding) [facility] Within the last year , have you been afraid of your partner or ex-partner? No [facility] Are you now , , , , never or living with a partner? [facility] How often to you hav e a drink containing alcohol? Monthly or less [facility] How many standard drinks containing alcohol do you have on a typical day? 1 or 2 [facility] How often do you hav e 6 or more drinks on 1 occasion? Never [facility] How hard is it for y ou to pay for the very basics like food, housing, medical care, and heating Not hard at all [facility] Do you feel stress - tense, restless, nervous, or anxious, or unable to sleep at night because your mind is troubled all the time - these days [OSQ] Not at all [facility] (I/We) worried whemando er (my/our) food would run out before (I/we) got money to buy more. Never true [facility] Start: 1940 Sex Assigned At Not on file [facility] Start: 09-19-2022 Gender identity Identifies as female gender (finding) [facility] Start: 04-10-2024 End: 05-21-2024 Alcoholic beverage intake Ex-drinker (finding) [facility] Start: 01-25-2017 Alcohol Comment rarely [facility] Start: 02-10-2015 Sex Female (finding) [facility] Medical Equipment Procedure Code Equipment Code Equipment Origin al Text Equipment Identifier Dates 1 strip by Other route in the morning. [id number] Start: 08-18-2018 Goals Date Patient Goal Desired Activity /State Personal health goal Comment on above: Formatting of this n ote might be different from the original. Evaluation of progress towards goal: safe transition from hospital to home with and private care aids. Functional Status Date Assessment Result Facility 05-06-2023 Functional status Patient at Baseline [facility] Work Phone: Mental Status Date Assessment Result Facility 05-06-2023 Cognitive function Cognitive Sta tus Patient at Baseline [facility] Work Phone: Clinical Notes 08-12-2020 to 05-22-2024 Telephone Encounter - LARISSA Albert - 05/22/2024 11:19 AM ESTTelephone Encounter - LARISSA Albert - 05/22/2024 11:19 AM Chacha Leon DO - 05/21/2024 10:00 AM ESTPatient Instructions Note Date & Type Note Facility 05-22-2024 Miscellaneous Notes Driver Engineer called patient and informed her that per SE: Kelle Leon DO 3 hours ago (7:36 AM) SE Hold resuming therapy until O2 testing completed and if O2 is needed it is on site for her to use with PT Note Patient verbalized understanding. documented in this encounter [facility] 05-22-2024 Telephone encounter Note Driver Engineer called patient and informed her that per SE: Kelle Leon, 3 hours ago (7:36 AM) SE Hold resuming therapy until O2 testing completed and if O2 is needed it is on site for her to use with PT Note Patient verbalized understanding. [employer] 05-21-2024 History of Presen t illness Narrative Images from the original note were not included. [facility] Pulmonary And Sleep Consult Patient - Leia Amaya Age - 83 [facility] 1940 [id number] Referring physician: Dr. Rosa Reason for Consultation: Shortness of breath HPI: Leia Amaya is a 83 y.o. female with history of hypertension, stage IIIB kidney disease, DM type 2, adiposity with BMI 52%, gait dysfunction, heart failure with preserved ejection fraction and pulmonary hypertension who presents as referred by Cardiology for further evaluation of her shortness of breath. Her daughter is with her today. She has been short of breath with some time. Most recently she has been trying to do some physical therapy at her assisted living facility however during her exercises her oxygen level was observed to desaturate as low as in the 70s. She has since had this on hold until this can be further worked up. She has no previous history of pulmonary disease and no issues as a child or adolescent. She gets winded with exertion and this has lead to decreased functional status over the last year or so. She is not able to make it as far in her assisted living facility. She does have a diagnosis of obstructive sleep apnea and sleeps on a CPAP with 2 L bleed in O2. [facility] and was diagnosed about 4-5 years ago. She additionally has chronic lymphedema and wears lymphedema pumps at night. Sometimes this is only for an hour. She does miss some nights. Testing today includes PFT, CT scan of the chest, chest x-ray, echocardiogram Echocardiogram reveals mitral and tricuspid regurgitation in addition to significantly elevated RVSP greater than 60 mmHg. She has dilated RV. She has overall felt to be fluid overload by both Cardiology and Nephrology. It has been a difficult balance. She reports that she took an additional 3 days of metolazone last week. Per our scale she states she has lost 15 lb since then. She has noticed a positive improvement in her shortness of breath. She is a never smoker. Her mother was a heavy smoker and had emphysema. She can walk about 25 yd before feeling winded. No history of diet pill use, illicit drug use, autoimmune related disorders or HIV. No previous history of blood clots ASSESSMENT 1. Dyspnea on exertion in the setting of physical deconditioning, adiposity, heart failure and pulmonary hypertension 2. Secondary pulmonary hypertension likely related to fluid overload condition 3. Hypoxia in the setting of pulmonary hypertension, heart failure 4. Physical deconditioning and gait dysfunction 5. Adiposity with BMI 52% PLAN I have personally reviewed the patient's most recent chest imaging and interpreted it independently. These findings were discussed with the patient. Recent pertinent labs and PFT data reviewed. Will obtain home oxygen evaluation Encouraged daily walking program, chair yoga Will see back in clinic in 4 months or earlier if needed. The patient was encouraged to call me with any concerns prior. Thank you for allowing me to participate in your patient's care. Past Medical History: Diagnosis Date Allergic Contrast dye, alapurinal Back pain Cataract CHF (congestive heart failure) ([facility]) Chronic musculoskeletal pain Diabetes ([facility]) GERD (gastroesophageal reflux disease) Hernia, hiatal Hypercholesterolemia Hyperlipidemia Hypertension Lumbar disc disease Obesity Sleep apnea Spinal stenosis Stage 4 chronic kidney disease ([facility]) Past Surgical History: Procedure Laterality Date APPENDECTOMY BACK SURGERY BACK SURGERY BUNIONECTOMY CARDIAC CATHETERIZATION CHOLECYSTECTOMY EYE SURGERY HERNIA REPAIR HYSTERECTOMY JOINT REPLACEMENT Right knee KNEE SURGERY SPINE SURGERY laminectomy at L4-5 TUBAL LIGATION Allopurinol, Dye, Iodinated contrast media, Latex, and Penicillins Prior to Admission medications Medication Sig Start Date End Date Taking? Authorizing Provider acetaminophen (TYLENOL) 500 mg tablet Take 1 tablet (500 mg total) by mouth nightly as needed for pain. Yes Not In System Ref Prov atorvastatin (LIPITOR) 20 mg tablet Take 1 tablet (20 mg total) by mouth once daily at bedtime. Yes Not In System Ref Prov calcium carbonate-vitamin D3 (OSCAL 500 + D) 500 mg(1,250mg) -200 units per tablet Take 1 tablet by mouth in the morning and 1 tablet at noon and 1 tablet in the evening. Take with meals. Yes Not In System Ref Prov empagliflozin (JARDIANCE) 10 mg tablet tablet Take 1 tablet (10 mg total) by mouth in the morning. Yes Not In System Ref Prov febuxostat (ULORIC) 40 mg tablet Take 2 tablets (80 mg total) by mouth in the morning. Yes Not In System Ref Prov melatonin 10 mg tablet Take 10 mg by mouth nightly. Yes Not In System Ref Prov metoprolol tartrate (LOPRESSOR) 25 mg tablet Take 1 tablet (25 mg total) by mouth in the morning and 1 tablet (25 mg total) before bedtime. Yes Not In System Ref Prov omeprazole (PriLOSEC) 20 mg capsule Take 1 capsule (20 mg total) by mouth in the morning and 1 capsule (20 mg total) before bedtime. Yes Not In System Ref Prov oxygen Inhale 2 L/min nightly. Yes Not In System Ref Prov rOPINIRole (REQUIP) 1 mg tablet Take 3 tablets (3 mg total) by mouth nightly. Yes Not In System Ref Prov therapeutic multivitamin (THERAGRAN) tablet Take 1 tablet by mouth in the morning. Yes Not In System Ref Prov torsemide (DEMADEX) 100 mg tablet Take 1 tablet (100 mg total) by mouth daily. Yes Not In System Ref Prov cetirizine (ZyrTEC) 10 mg tablet Take 1 tablet (10 mg total) by mouth in the morning. Not In System Ref Prov ferrous sulfate 325 (65 FE) mg tablet Take 1 tablet (325 mg total) by mouth daily with breakfast. Not In System Ref Prov reports that she quit smoking about 64 years ago. Her smoking use included cigarettes. She started smoking about 65 years ago. She has a 12.5 pack-year smoking history. She has never used smokeless tobacco. She reports that she does not currently use alcohol. She reports that she does not use drugs. Family History Problem Relation Age of Onset Heart attack Mother Alcohol abuse Mother COPD Mother Diabetes Mother Heart disease Mother Hypertension Mother Cancer Father Diabetes Father Heart disease Father Hypertension Father Diabetes Sister Heart disease Sister Hypertension Sister Review of Systems: All 11 systems have been reviewed and are negative except as mentioned in History of Present Illness. Exam: General: Alert, oriented, no acute distress, nontoxic, obese HEENT: Moist mucosal membranes, no oral lesions or oral thrush, trachea midline, thick neck Chest: Clear to auscultation bilaterally without any crackles, wheezes, rhonchi. Normal AP diameter. CV: Regular rate regular rhythm Extremities: No edema, erythema, distal cyanosis, clubbing Integumentary: Warm and dry. No rash or lesion Neuro: Cranial nerves 2-11 grossly intact. No lateralizing deficits. Slow antalgic gait with walker VITALS BP 154/80 Pulse 120 Ht 167.6 cm (5' 6 ) Wt (!) 147.1 kg (324 lb 6.4 oz) SpO2 95% BMI 52.36 kg/m Cardiac data: ECHO 05/12/24 Interpretation Summary Left Ventricle: Left ventricle appears normal in size. Systolic function is normal with an ejection fraction of 55-60%. The quantitative EF by 2D Castillo biplane is 56%. Unable to assess diastolic function due to arrhythmia. Tricuspid Valve: There is moderate to severe regurgitation. The right ventricular systolic pressure is severely elevated. RVSP calculated at 63 mmHg. RVSP is based on RA pressure of 15 mmHg. There is severe pulmonary hypertension. Right Ventricle: Right ventricular size is mildly dilated. The right ventricular basal diameter is 43.0 mm. Systolic function is mildly to moderately reduced. Mitral Valve: There is moderate regurgitation with a centrally directed jet. There is no evidence of mitral valve stenosis. Right Atrium: Right atrium is moderately dilated. The right atrial area is 25.2 cm2. Study Information Study Details A complete echo was performed using complete 2D, color flow Doppler and spectral Doppler. Overall the study quality was adequate. Myocardial Findings Left Ventricle Left ventricle appears normal in size. There is mild increased wall thickness/hypertrophy. Systolic function is normal with an ejection fraction of 55-60%. The quantitative EF by 2D Castillo biplane is 56%. No obvious regional wall motion abnormalities. Unable to assess diastolic function due to arrhythmia. Right Ventricle Right ventricular size is mildly dilated. The right ventricular basal diameter is 43.0 mm. Systolic function is mildly to moderately reduced. Left Atrium Left atrium volume index is normal. The left atrial volume index is 28.6 mL/m2. Right Atrium Right atrium is moderately dilated. The right atrial area is 25.2 cm2. Aortic Valve The aortic valve is trileaflet. There is mild sclerosis. There is trace regurgitation. There is no evidence of aortic valve stenosis. Mitral Valve The leaflets are mildly thickened. There is moderate regurgitation with a centrally directed jet. There is no evidence of mitral valve stenosis. Tricuspid Valve Tricuspid valve appears to be normal. There is moderate to severe regurgitation. The right ventricular systolic pressure is severely elevated. RVSP calculated at 63 mmHg. RVSP is based on RA pressure of 15 mmHg. There is severe pulmonary hypertension. Pulmonic Valve The pulmonic valve was not well visualized. There is mild regurgitation. Ascending Aorta The aortic root is normal in size. IVC/SVC The right atrial pressure is estimated at 15 mmHg. IVC appears dilated with increased right atrial pressure. There is no collapse with deep inspiration. Pericardium There is no pericardial effusion. Wall Motion Wall Scoring Baseline Score Index: 1.00 The left ventricular wall motion is normal. 2D Measurements LV LV Diastolic Volume 75.1 mL LV Systolic Volume 33 mL LVIDs 3.3 cm IVS 1.2 cm PW 1.1 cm EF 56 % Echo EF Estimated 56 % FS 33 % LVIDd 4.9 cm Aorta LVOT diameter 2.1 cm Aortic root 2.9 cm RV TAPSE 1.51 cm TASV 6.8 cm/s RV diastolic dimension (basal) 43 mm LA LA size 5.1 cm LA volume 75.5 cm3 LA Volume Index 28.6 mL/m2 [employer] Z-Score Measurements Measurement Z-score Normal Range LVIDd 4.90 cm (cm) LVIDs 3.30 cm (cm) Data set: [place] Z-score normal range: +/-1.65 BSA formula: [facility] Doppler Measurements AV AV valve area 2.53 AV peak kathy 147 cm/s AV peak gradient 8.64 mmHg AV mean gradient 5 mmHg AV VTI 32.4 cm Valve area - Index 1 LVOT peak kathy 1.08 m/s LVOT stroke volume 82.09 ml LVOT peak VTI 23.7 cm MV MV Peak E Kathy 108 cm/s E wave deceleration time 155 msec MV pressure 1/2 time 46 ms MV valve area p 1/2 method 4.78 cm2 TV Est. RA pressure 15 mmHg RV Peak Systolic Pressure 63 mmHg TR Peak Kathy 3.5 m/s TR peak gradient 48 mmHg PFT Results: Radiology CT CHEST 04/21/24 History: Left chest wall mass after trauma Technique: Contiguous axial images through the thorax were obtained without the administration of intravenous contrast material. The study was performed following placement of an opaque marker over the palpable lump in the left chest wall. Automated exposure control was utilized. Computer aided detection for pulmonary nodules was performed utilizing [employer] software. Comparison: None Findings: There is mild induration of the subcutaneous fat in the area of palpable lump described clinically most like representing soft tissue contusion. No cystic or solid masses are identified. No abnormal fluid collections are seen. There is no evidence for an acute osseous abnormality. No associated rib fractures are seen. No hilar or mediastinal masses or adenopathy are seen. Coronary artery calcic lesions are noted. The lung buchanan are clear for an active process. No pleural or parenchymal abnormalities are identified. Limited images of the upper abdomen are unremarkable. A hypodense lesion within the posterior aspect of the right lobe of liver cannot be fully evaluated without intravenous contrast, however has densities consistent that of a hepatic cyst. Impression: * Minimal induration of the subcutaneous fat in the area of palpable lump in the left lateral chest wall, demarcated by an opaque marker. This is most consistent with minimal soft tissue contusion. No hematomas or soft tissue masses are identified. * Otherwise normal CT thorax. Dr. Kelle Leon DO. [facility] Office: [phone] documented in this encounter [facility] 04-20-2024 Miscellaneous Notes ----- Message from Dr. Fabricio Dickson MD sent at 04/17/2024 5:56 PM EDT ----- Repeat liver panel 3 months Results and LLD response called to pt. Wants to have LFT's repeated prior to 07/10/24 appt w/ LLD. Orders mailed per request. documented in this encounter [facility] 04-20-2024 Telephone encounter Note ----- Message from Dr. Fabricio Dickson MD sent at 04/17/2024 5:56 PM EDT ----- [facility] Telephone encounter Note Results and LLD response called to pt. Wants to have LFT's repeated prior to 07/10/24 appt w/ LLD. Orders mailed per request. [facility] 04-10-2024 History of Presen t illness Narrative Leia Ann Monique Date of visit: 04/10/2024 Date of : 1940 Age: 83 y.o. Patient Active Problem List Diagnosis Spinal stenosis of lumbar region Essential hypertension Hyperlipidemia Type 2 diabetes mellitus, without long-term current use of insulin [place] Shortness of breath Obstructive sleep apnea Heart failure with preserved left ventricular function (HFpEF) ([facility] Traumatic ulcer of left lower leg, limited to breakdown of skin ([facility] Lymphedema BMI 50.0-59.9, adult ([facility] Stage 3b chronic kidney disease (CKD) ([facility] Anemia of chronic disease Grade II diastolic dysfunction Pulmonary hypertension ([facility]) Allergies Allergen Reactions Allopurinol Itching Dye Hives Iodinated Contrast Media Hives Other reaction(s): Intolerance-unknown Latex itching Penicillins Hives Current Outpatient Medications Medication Sig Dispense Refill acetaminophen (TYLENOL) 500 mg tablet Take 1 tablet (500 mg total) by mouth nightly as needed for pain. atorvastatin (LIPITOR) 20 mg tablet Take 1 tablet (20 mg total) by mouth once daily at bedtime. calcium carbonate-vitamin D3 (OSCAL 500 + D) 500 mg(1,250mg) -200 units per tablet Take 1 tablet by mouth in the morning and 1 tablet at noon and 1 tablet in the evening. Take with meals. cetirizine (ZyrTEC) 10 mg tablet Take 1 tablet (10 mg total) by mouth in the morning. empagliflozin (JARDIANCE) 10 mg tablet tablet Take 1 tablet (10 mg total) by mouth in the morning. febuxostat (ULORIC) 40 mg tablet Take 2 tablets (80 mg total) by mouth in the morning. ferrous sulfate 325 (65 FE) mg tablet Take 1 tablet (325 mg total) by mouth daily with breakfast. melatonin 10 mg tablet Take 10 mg by mouth nightly. metoprolol tartrate (LOPRESSOR) 25 mg tablet Take 1 tablet (25 mg total) by mouth in the morning and 1 tablet (25 mg total) before bedtime. omeprazole (PriLOSEC) 20 mg capsule Take 1 capsule (20 mg total) by mouth in the morning and 1 capsule (20 mg total) before bedtime. oxygen Inhale 2 L/min nightly. rOPINIRole (REQUIP) 1 mg tablet Take 3 tablets (3 mg total) by mouth nightly. therapeutic multivitamin (THERAGRAN) tablet Take 1 tablet by mouth in the morning. torsemide (DEMADEX) 100 mg tablet Take 1 tablet (100 mg total) by mouth daily. No current facility-administered medications for this visit. Chief Complaint Patient presents with Follow-up EST PT F/U LABS AT [facility] W/ PT L/S GRU 2021 PT IS SOB History of Present Illness I had the opportunity to meet this 83-year-old. She was last in the office 06/2022 She has started some rehab/ exercise at her new place of living. She did not exercise previously but feels that she was much less short of breath. She is now short of breath with walking 125 ft. Her O2 sat drops with using the NuStep or any exertion. She has significant fluid overload. Her fluids or managed by her 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 We discussed previous findings of pulmonary hypertension, likely related to sleep apnea and weight that are likely contributing to her shortness of breath She has previously attended lymphedema clinic. 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 She is . She and her do not drive and recently moved into assisted living she is accompanied today by her daughter CV TESTING HISTORY: ECHO: Echo complete W/O contrast Result Date: 04/23/2023 Left Ventricle: There is mild concentric increased wall thickness/hypertrophy. Systolic function is normal with an ejection fraction of 65-70%. Mitral Valve: There is mild regurgitation. There is no evidence of mitral valve stenosis. Right Ventricle: Systolic function is normal. Tricuspid Valve: There is moderate regurgitation. There is no evidence of tricuspid valve stenosis. There is moderate pulmonary hypertension. Pericardium: There is no pericardial effusion. STRESS: No results found. HOLTER: No results found. CARDIAC CATH: No results found. CAROTID: No results found. CXR: No results found. Lipid Profile: Lab Results Component Value Date Cholesterol 137 (L) 07/14/2019 Cholesterol:HDL Ratio 2.6 07/14/2019 HDL 45 12/28/2014 HDL Cholesterol 53 07/14/2019 HDL interpretation 12/28/2014 RISK FAVORABLE AVERAGE INCREASED MEN >55 MG/DL 35-55 MG/DL < 35 MG/DL FEMALE >65 MG/DL 45-65 MG/DL < 45 MG/DL Triglycerides 132 07/14/2019 Triglycerides 120 12/28/2014 LDL 76 12/28/2014 LDL (calc) 58 07/14/2019 LDL interp 12/28/2014 RECOMMENDED: <130 MG/DL MODERATE RISK: 130-159 MG/DL HIGH RISK: >160 MG/DL No data recorded No data recorded No data recorded EK04/10/2024 sinus rhythm at 53 beats per minute with occasional PVC and minimal intraventricular conduction delay, pronounced U wave Past Medical History: Diagnosis Date Back pain Cataract CHF (congestive heart failure) ([facility]) Chronic musculoskeletal pain Diabetes [place] GERD (gastroesophageal reflux disease) Hernia, hiatal Hypercholesterolemia Hyperlipidemia Hypertension Lumbar disc disease Sleep apnea Spinal stenosis Stage 4 chronic kidney disease ([facility]) Past Surgical History: Procedure Laterality Date APPENDECTOMY BACK SURGERY BACK SURGERY BUNIONECTOMY CARDIAC CATHETERIZATION CHOLECYSTECTOMY EYE SURGERY HERNIA REPAIR HYSTERECTOMY JOINT REPLACEMENT Right knee KNEE SURGERY SPINE SURGERY laminectomy at L4-5 Family History Problem Relation Age of Onset Heart attack Mother Cancer Father Social History Socioeconomic History Marital status: Spouse name: Not on file Number of children: Not on file Years of education: Not on file Highest education level: Not on file Occupational History Not on file Tobacco Use Smoking status: Former Smokeless tobacco: Never Vaping Use Vaping status: Never Used Substance and Sexual Activity Alcohol use: Not Currently Comment: rarely Drug use: No Sexual activity: Defer Other Topics Concern Caffeine Use Yes Social History Narrative Not on file Social Determinants of Health Financial Resource Strain: Low Risk (02/19/2023) Received from [facility] Overall Financial Resource Strain (CARDIA) Difficulty of Paying Living Expenses: Not hard at all Food Insecurity: No Food Insecurity (04/10/2024) Hunger Screening Food Insecurity - Worry: Never True Food Insecurity - Inability: Never True Transportation Needs: No Transportation Needs (02/19/2023) Received from [facility] PRAPARE - Transportation Lack of Transportation (Medical): No Lack of Transportation (Non-Medical): No Physical Activity: Inactive (02/19/2023) Received from [facility] Exercise Vital Sign Days of Exercise per Week: 0 days Minutes of Exercise per Session: 0 min Stress: No Stress Concern Present (02/19/2023) [facility] - Occupational Stress Questionnaire Feeling of Stress : Not at all Social Connections: Socially Integrated (02/19/2023) Received from [facility] Social Connection and Isolation Panel [NHANES] Frequency of Communication with Friends and Family: More than three times a week Frequency of Social Gatherings with Friends and Family: Twice a week Attends Evangelical Services: More than 4 times per year Active Member of Clubs or Organizations: No Attends Club or Organization Meetings: 1 to 4 times per year Marital Status: Interpersonal Safety: Not At Risk (02/19/2023) Received from [facility] Humiliation, Afraid, Rape, and Kick questionnaire Fear of Current or Ex-Partner: No Emotionally Abused: No Physically Abused: No Sexually Abused: No Housing Instability: Low Risk (02/19/2023) [facility] Stability Vital Sign Unable to Pay for Housing in the Last Year: No Number of Places Lived in the Last Year: 1 Unstable Housing in the Last Year: No Review of Systems Review of Systems Constitutional: Positive for malaise/fatigue. HENT: Negative. Eyes: Negative. Cardiovascular: Negative. Vascular: Negative. Respiratory: Positive for shortness of breath and wheezing. Endocrine: Negative. Hematologic/Lymphatic: Bruises/bleeds easily. Skin: Negative. Musculoskeletal: Positive for muscle weakness. Gastrointestinal: Negative. Genitourinary: Negative. Neurological: Negative. Psychiatric/Behavioral: Positive for depression. Allergic/Immunologic: Positive for environmental allergies. CARDIOVASCULAR: Please review HPI. Physical Examination General appearance: Alert, oriented and cooperative. In no acute distress. Examined in wheelchair. Chronically ill-appearing Skin: Warm and dry to touch. Respiratory: Bilateral diminished without rales Cardiovascular: RRR with normal S1 and S2 with no murmurs. Musculoskeletal: Severe bilateral lower extremity edema with severe changes of chronic venous stasis VITAL SIGNS: BP 138/76 (BP Site: Left Arm, BP Postition: Sitting) Pulse 60 Ht 167.6 cm (5' 6 ) Wt (!) 150 kg (330 lb 9.6 oz) SpO2 94% BMI 53.36 kg/m Orders Placed or Reconciled This Encounter Medications empagliflozin (JARDIANCE) 10 mg tablet tablet Sig: Take 1 tablet (10 mg total) by mouth in the morning. torsemide (DEMADEX) 100 mg tablet Sig: Take 1 tablet (100 mg total) by mouth daily. Medications Discontinued During This Encounter Medication Reason bumetanide (BUMEX) 2 mg tablet potassium chloride (K-TAB,KLOR-CON) 10 MEQ CR tablet lisinopriL (PRINIVIL,ZESTRIL) 10 mg tablet IMPRESSIONS/PLAN 1. Chronic diastolic heart failure ([facility] - POCT EKG 2. Heart failure with preserved left ventricular function (HFpEF) ([facility] 3. Essential hypertension - CMP; Future 4. Shortness of breath - CBC; Future - Ambulatory referral to Pulmonology; Future - Echo complete W/O contrast; Future 5. Stage 3b chronic kidney disease (CKD) ([facility] 6. Lymphedema 7. Mixed hyperlipidemia - Lipid panel; Future 8. Pulmonary hypertension ([facility] - Echo complete W/O contrast; Future 1. Chronic Heart failure with preserved ejection fraction Jardiance/metoprolol tartrate --torsemide per 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 2. Normal coronary arteries on left heart catheterization 2012 3. Primary hypertension 4. Pulmonary hypertension --right ventricular systolic pressure estimated at 59 mmHg on 04/2023 echocardiogram 5. Lymphedema 6. Hyperlipidemia --atorvastatin 7. Sleep apnea 8. Stage IIIB chronic kidney disease --Dr Russell 9. Normal left ventricular systolic function on echocardiogram 04/2023 10. BMI greater than 50 Echocardiogram Laboratory studies Consult pulmonary Contact Nephrology regarding fluid overload TODAYS ORDERS Orders Placed This Encounter Procedures Lipid panel CMP CBC Ambulatory referral to Pulmonology POCT EKG Echo complete W/O contrast FOLLOW UP Return in about 3 months (around 07/11/2024). PCP: Stone Ortega DO Referring Physician: Sondra Boswell MD [address] [place] [address] documented in this encounter [facility] [facility] [facility] 04-10-2024 Instructions Fabricio Dickson MD - 04/10/2024 11:30 AM EDT Echocardiogram Laboratory studies Consult pulmonary Contact Nephrology regarding fluid overload documented in this encounter [facility] 08-16-2023 Evaluation note Encounter Date Diagnosis Assessment Notes Aug, Chronic kidney disease, stage III (moderate) (ICD-10 - N18.30) [facility] Other [id number] Telephone encounter Note* Telephone Encounter - Sondra Boswell MD - 08/14/2023 3:39 PM EST [facility]. [id number] Miscellaneous Notes* Telephone Encounter - Sondra Boswell MD - 08/14/2023 3:39 PM EST Refills sent. [id number] Evaluation note* Encounter Date Diagnosis Assessment Notes Treatment Notes Treatment Clinical Notes Jul, Hypertensive chronic kidney disease with stage 1 through stage 4 chronic kidney disease, or unspecified chronic kidney disease (ICD-10 - I12.9) BP is uncontrolled and hypervolemic. I have prescribed oral Metolazone 5 mg daily until she loses 15 lbs then change it 3 xweek. Continue Metoprolol 25 mg BID. Continue torsemide to 100 mg daily. Also advised her to limit the fluid intake to 50 ounces a day. I have advised her to monitor weight and blood pressure at home and call office if she doesnot loose weight or if her blood pressure is still greater than 140/90 mmHg at home I have advised her to do her renal function panel in 3 days and after 1 week. Call office for results. Jul, Chronic kidney disea se, stage III (moderate) (ICD-10 - N18.30) She has CKD due to HTN, possible diabetic nephropathy. Her serum creatinine fluctuates 1.3-2.2 mg/dl. Her renal function gets worse due to hemodynamic change in setting of diuresis. I have discussed with her the importance of good DM and HTN control to slow down the progression of disease. Her renal US was unremarkable Jul, Type 2 diabetes mellitus with diabetic chronic kidney disease (ICD-10 - E11.22) Blood sugars are within the acceptable range. I have advised her to continue to work with PCP for DM management. She has minimal proteinuria. Continue Jardiance. We will add the low-dose of lisinopril once her renal function stabilizes Jul, Edema leg (ICD-10 - R60.0) She appears to be hypervolemic on exam. Continue Torsemide 100 mg daily. Start oral metolazone 5 mg daily. I have advised her to monitor her weight at home and if she gains 2 pounds in 24 hours or 5 pounds in a week then she should contact our office. Jul, Gout (ICD-10 - M10.9) She de nies any recent gout flare. Continue current dose of Uloric Jul, Secondary hyperparathyroidism of renal origin (ICD-10 - N25.81) She has secondary hyperparathyrodism but her Calcium , Vit D and Phosphorus are within the goal Jul, Iron deficiency (ICD -10 - E61.1) Hemoglobin is within the goal but has low iron stores. Continue current iron supplement. [facility] Other 01-10-2024 Evaluation note* Encounter Date Diagnosis Assessment Notes Treatment Notes Treatment Clinical Notes Jul, Hypertensive chronic kidney disease with stage 1 through stage 4 chronic kidney disease, or unspecified chronic kidney disease (ICD-10 - I12.9) [facility] Other 11-27-2023 Evaluation note* Encounter Date Diagnosis Assessment Notes Treatment Notes Treatment Clinical Notes May, Hypertensive chronic kidney disease with stage 1 through stage 4 chronic kidney disease, or unspecified chronic kidney disease (ICD-10 - I12.9) [facility] Other 11-23-2023 Evaluation note* Encounter Date Diagnosis Assessment Notes Treatment Notes Treatment Clinical Notes May, Hypertensive chronic kidney disease with stage 1 through stage 4 chronic kidney disease, or unspecified chronic kidney disease (ICD-10 - I12.9) May, Chronic kidney disease, stage III (moderate) (ICD-10 - N18.30) [facility] Other 11-07-2023 Evaluation note* Encounter Date Diagnosis Assessment Notes Treatment Notes Treatment Clinical Notes May, Hypertensive chronic kidney disease with stage 1 through stage 4 chronic kidney disease, or unspecified chronic kidney disease (ICD-10 - I12.9) BP is uncontrolled and euvolemic. Increase Metoprolol 25 mg BID. Continue torsemide to 60 mg daily. Also advised her to limit the fluid intake to 50 ounces a day. I have advised her to monitor weight and blood pressure at home and call office if she doesnot loose weight or if her blood pressure is still greater than 140/90 mmHg at home May, Chronic kidney disea se, stage III (moderate) (ICD-10 - N18.30) She has CKD due to HTN, possible diabetic nephropathy. Her serum creatinine fluctuates 1.3-2.2 mg/dl. Her renal function gets worse due to hemodynamic change in setting of diuresis. I have discussed with her the importance of good DM and HTN control to slow down the progression of disease. Her renal US was unremarkable May, Type 2 diabetes mellitus with diabetic chronic kidney disease (ICD-10 - E11.22) Blood sugars are within the acceptable range. I have advised her to continue to work with PCP for DM management. She has minimal proteinuria. Continue Jardiance. We will add the low-dose of lisinopril once her renal function stabilizes May, Edema leg (ICD-10 - R60.0) She appears to be euvolemic on exam. Continue Torsemide 60 mg daily. I have advised her to monitor her weight at home and if she gains 2 pounds in 24 hours or 5 pounds in a week then she should contact our office. May, Gout (ICD-10 - M10.9) She de nies any recent gout flare. Continue current dose of Uloric May, Secondary hyperparathyroidism of renal origin (ICD-10 - N25.81) She has secondary hyperparathyrodism but her Calcium , Vit D and Phosphorus are within the goal May, Iron deficiency (ICD -10 - E61.1) Hemoglobin is within the goal and has adequate iron stores. Continue current iron supplement. [facility] Other 09-27-2023 Evaluation note* Encounter Date Diagnosis Assessment Notes Treatment Notes Treatment Clinical Notes Mar, Hypertensive chronic kidney disease with stage 1 through stage 4 chronic kidney disease, or unspecified chronic kidney disease (ICD-10 - I12.9) BP is uncontrolled and hypervolemic. She has gained 15 pounds in the last 6 months. I have advised her to increase her torsemide to 80 mg daily. Also advised her to limit the fluid intake to 50 ounces a day. I have advised her to monitor weight and blood pressure at home and call office if she doesnot loose weight or if her blood pressure is still greater than 140/90 mmHg at home Mar, Chronic kidney disea se, stage III (moderate) (ICD-10 - N18.30) She has CKD due to HTN, possible diabetic nephropathy. Her serum creatinine fluctuates 1.3-2.2 mg/dl. Her renal function gets worse due to hemodynamic change in setting of diuresis. I have discussed with her the importance of good DM and HTN control to slow down the progression of disease. Her renal US was unremarkable Mar, Type 2 diabetes mellitus with diabetic chronic kidney disease (ICD-10 - E11.22) Blood sugars are within the acceptable range. I have advised her to continue to work with PCP for DM management. She has minimal proteinuria. I will continue the current dose of lisinopril. She may benefit with SGLT2 inhibitors including Farxiga and Jardiance. Advised to discuss with her PCP. We will add the finerenone in future if needed. Mar, Edema leg (ICD-10 - R60.0) She appears to be hypervolemic on exam. Increased Torsemide 80 mg daily and lisinopril 40 mg daily. I have advised her to monitor her weight at home and if she gains 2 pounds in 24 hours or 5 pounds in a week then she should contact our office. Mar, Gout (ICD-10 - M10.9) She de nies any recent gout flare. Continue current dose of Uloric Mar, Secondary hyperparathyroidism of renal origin (ICD-10 - N25.81) She has secondary hyperparathyrodism but her Calcium , Vit D and Phosphorus are within the goal Mar, Iron deficiency (ICD -10 - E61.1) Hemoglobin is within the goal and has adequate iron stores. Continue current iron supplement. [facility] Other 07-14-2023 Evaluation note* Encounter Date Diagnosis Assessment Notes Treatment Notes Treatment Clinical Notes Jan, Obstructive sleep apnea (ICD-10 - G47.33) Download was reviewed with patient, current pressure is controlling apnea and we will make no changes at this time. Pt was encouraged to increase her usage to nightly throughout the entire night as this does provide clinical benefit. The adverse effects of uncontrolled BRANDO/hypoxia on health, cognition, increased risk of accident were reviewed. Discussed possible barriers to compliance, including keeping it on longer throughout the night/putting it back on if she gets up to use the restroom. We will achieve a download in 1 month for reevaluation of compliance. A prescription was sent to the [employer] [facility] [employer] for new supplies throughout the year. She will follow-up in the sleep clinic in 1 year or sooner pending results of download. Jan, Idiopathic sleep related nonobstructive alveolar hypoventilation (ICD-10 - G47.34) Patients with untreated apnea-associated nocturnal hypoxia have more heart attacks, strokes, and symptomatic pulmonary hypertension. This emphasizes importance of using treatment every night, all night. Jan, Chronic systolic congestive heart failure (ICD-10 - I50.22) There is a strong, bidirectional relationship between congestive heart failure and severe sleep apnea. Patients with CHF will have sleep apnea a full 60% of the time, and controlling sleep apnea can have a substantial effect on cardiac function after hypoxia and catecholamine overload caused by recurring apneas are controlled. Jan, Other Call if any questions or problems. Patient is advised to work on healthy diet choices and appropriate servings, weight control, regular exercise as directed, and reduce fat intake. Use machine regularly, and keep up with mask changes as needed. Call if problems with mask toleration, increased sleepiness, or poor response to treatment. . [facility] Other 06-25-2023 Evaluation note* Encounter Date Diagnosis Assessment Notes Treatment Notes Treatment Clinical Notes Dec, Hypertensive chronic kidney disease with stage 1 through stage 4 chronic kidney disease, or unspecified chronic kidney disease (ICD-10 - I12.9) [facility] Other 03-01-2023 Evaluation note* Encounter Date Diagnosis Assessment Notes Treatment Notes Treatment Clinical Notes Sep, Hypertensive chronic kidney disease with stage 1 through stage 4 chronic kidney disease, or unspecified chronic kidney disease (ICD-10 - I12.9) BP is uncontrolled and hypervolemic. I have advised her to increase her torsemide to 60 mg daily. I have advised her to monitor weight and blood pressure at home and call office if she doesnot loose weight or if her blood pressure is still greater than 140/90 mmHg at home Sep, Chronic kidney disea se, stage III (moderate) (ICD-10 - N18.30) She has CKD due to HTN, possible diabetic nephropathy. Her serum creatinine fluctuates 1.3-2.2 mg/dl. Her renal function gets worse due to hemodynamic change in setting of diuresis. I have discussed with her the importance of good DM and HTN control to slow down the progression of disease. Her renal US was unremarkable Sep, Type 2 diabetes mellitus with diabetic chronic kidney disease (ICD-10 - E11.22) Blood sugars are within the acceptable range. I have advised her to continue to work with PCP for DM management. She has minimal proteinuria. I will continue the current dose of lisinopril. She may benefit with SGLT2 inhibitors including Farxiga and Jardiance. Advised to discuss with her PCP. We will add the finerenone in future if needed. Sep, Edema leg (ICD-10 - R60.0) She appears to be hypervolemic on exam. Increased Torsemide 60 mg daily and lisinopril 40 mg daily. I have advised her to monitor her weight at home and if she gains 2 pounds in 24 hours or 5 pounds in a week then she should contact our office. Sep, Gout (ICD-10 - M10.9) She de nies any recent gout flare. Continue current dose of Uloric Sep, Secondary hyperparathyroidism of renal origin (ICD-10 - N25.81) She has secondary hyperparathyrodism but her Calcium , Vit D and Phosphorus are within the goal Sep, Iron deficiency (ICD -10 - E61.1) Hemoglobin is within the goal and has adequate iron stores. Continue current iron supplement. [facility] Other 10-26-2022 Evaluation note* Encounter Date Diagnosis Assessment Notes Treatment Notes Treatment Clinical Notes Apr, Hypertensive chronic kidney disease with stage 1 through stage 4 chronic kidney disease, or unspecified chronic kidney disease (ICD-10 - I12.9) BP is controlled and euvolemic. I have advised her to monitor weight and blood pressure at home and call office if she doesnot loose weight or if her blood pressure is still greater than 140/90 mmHg at home Apr, Chronic kidney disea se, stage III (moderate) (ICD-10 - N18.30) She has CKD due to HTN, possible diabetic nephropathy. Her serum creatinine fluctuates 1.3-2.2 mg/dl. Her renal function gets worse due to hemodynamic change in setting of diuresis. I have discussed with her the importance of good DM and HTN control to slow down the progression of disease. Her renal US was unremarkable Apr, Type 2 diabetes mellitus with diabetic chronic kidney disease (ICD-10 - E11.22) Blood sugars are within the acceptable range. I have advised her to continue to work with PCP for DM management. She has minimal proteinuria. I will continue the current dose of lisinopril. She may benefit with SGLT2 inhibitors including Farxiga and Jardiance. Advised to discuss with her PCP. We will add the finerenone in future if needed. Apr, Edema leg (ICD-10 - R60.0) She appears to be euvolemic on exam. Continue Torsemide 60 mg daily and lisinopril 40 mg daily. I have advised her to monitor her weight at home and if she gains 2 pounds in 24 hours or 5 pounds in a week then she should contact our office. Apr, Gout (ICD-10 - M10.9) She de nies any recent gout flare. Continue current dose of Uloric Apr, Anemia in chronic kidney disease (ICD-10 - D63.1) Hemoglobin is within the goal and has adequate iron stores. Continue current iron supplement. Apr, Secondary hyperparathyroidism of renal origin (ICD-10 - N25.81) She has secondary hyperparathyrodism but her Calcium , Vit D and Phosphorus are within the goal [facility] Other 05-25-2022 Evaluation note* Encounter Date Diagnosis Assessment Notes Treatment Notes Treatment Clinical Notes November, Obstructive sleep apnea (ICD-10 - G47.33) Fortunately the patient is using and benefiting from treatment. Download shows good control. Encouraged her to use the machine anytime she is asleep. She does feel the pressure is pretty high, and would like to see if lower pressures might work. Reviewing her titration study now that she is accommodated I think we could go to auto mode minimum 10 maximum 16. She will continue with O2 bled into the device. She will call sooner if problems but otherwise we will see her back in a year November, Idiopathic sleep related nonobstructive alveolar hypoventilation (ICD-10 - G47.34) Patients with untreated apnea-associated nocturnal hypoxia have more heart attacks, strokes, and symptomatic pulmonary hypertension. This emphasizes importance of using treatment every night, all night. November, Chronic systolic congestive heart failure (ICD-10 - I50.22) There is a strong, bidirectional relationship between congestive heart failure and severe sleep apnea. Patients with CHF will have sleep apnea a full 60% of the time, and controlling sleep apnea can have a substantial effect on cardiac function after hypoxia and catecholamine overload caused by recurring apneas are controlled. November, Other Call if any questions or problems. Patient is advised to work on healthy diet choices and appropriate servings, weight control, regular exercise as directed, and reduce fat intake. Use machine regularly, and keep up with mask changes as needed. Call if problems with mask toleration, increased sleepiness, or poor response to treatment. . [facility] Other 04-12-2022 Evaluation note* Encounter Date Diagnosis Assessment Notes Treatment Notes Treatment Clinical Notes Oct, Hypertensive chronic kidney disease with stage 1 through stage 4 chronic kidney disease, or unspecified chronic kidney disease (ICD-10 - I12.9) [facility] Other 03-30-2022 Evaluation note* Encounter Date Diagnosis Assessment Notes Treatment Notes Treatment Clinical Notes Sep, Hypertensive chronic kidney disease with stage 1 through stage 4 chronic kidney disease, or unspecified chronic kidney disease (ICD-10 - I12.9) BP is controlled and euvolemic. I have advised her to monitor weight and blood pressure at home and call office if she doesnot loose weight or if her blood pressure is still greater than 140/90 mmHg at home Sep, Chronic kidney disea se, stage III (moderate) (ICD-10 - N18.30) She has CKD due to HTN, possible diabetic nephropathy. Her serum creatinine fluctuates 1.3-2.2 mg/dl. Her renal function gets worse due to hemodynamic change in setting of diuresis. I have discussed with her the importance of good DM and HTN control to slow down the progression of disease. Her renal US was unremarkable Sep, Type 2 diabetes mellitus with diabetic chronic kidney disease (ICD-10 - E11.22) Blood sugars are within the acceptable range. I have advised her to continue to work with PCP for DM management. She has minimal proteinuria. I will continue the current dose of lisinopril. Sep, Edema leg (ICD-10 - R60.0) She appears to be euvolemic on exam. Continue Torsemide 40 mg daily and lisinopril 40 mg daily. I have advised her to monitor her weight at home and if she gains 2 pounds in 24 hours or 5 pounds in a week then she should contact our office. Sep, Gout (ICD-10 - M10.9) She denies any recent gout flare. Continue current dose of Uloric Sep, Anemia in chronic kidney disease (ICD-10 - D63.1) Hemoglobin is within the goal and has adequate iron stores. Continue current iron supplement. Sep, Secondary hyperparathyroidism of renal origin (ICD-10 - N25.81) She has secondary hyperparathyrodism but her Calcium , Vit D and Phosphorus are within the goal Sep, Hyperkalemia (ICD-10 - E87.5) I have advised her to take low potassium diet and provide information about it. [facility] Other 12-14-2021 Evaluation note* Encounter Date Diagnosis Assessment Notes Treatment Notes Treatment Clinical Notes Jun, Hypertensive chronic kidney disease with stage 1 through stage 4 chronic kidney disease, or unspecified chronic kidney disease (ICD-10 - I12.9) BP is controlled and euvolemic. I have advised her to monitor weight and blood pressure at home and call office if she doesnot loose weight or if her blood pressure is still greater than 140/90 mmHg at home Jun, Chronic kidney disea se, stage III (moderate) (ICD-10 - N18.30) She has CKD due to HTN, possible diabetic nephropathy. Her serum creatinine fluctuates 1.9-2.2 mg/dl. Her renal function gets worse due to hemodynamic change in setting of diuresis. I have discussed with her the importance of good DM and HTN control to slow down the progression of disease. Her renal US was unremarkable Jun, Type 2 diabetes mellitus with diabetic chronic kidney disease (ICD-10 - E11.22) Blood sugars are within the acceptable range. I have advised her to continue to work with PCP for DM management. She has minimal proteinuria. I will continue the current dose of lisinopril. Jun, Edema leg (ICD-10 - R60.0) She appears to be euvolemic on exam. Continue Torsemide 40 mg daily and lisinopril 40 mg daily. I have advised her to monitor her weight at home and if she gains 2 pounds in 24 hours or 5 pounds in a week then she should contact our office. Jun, Gout (ICD-10 - M10.9) She denies any recent gout flare. Continue current dose of Uloric Jun, Anemia in chronic kidney disease (ICD-10 - D63.1) Hemoglobin is within the goal. She takes oral iron supplement for iron deficiency anemia. Continue current iron supplement. Jun, Secondary hyperparathyroidism of renal origin (ICD-10 - N25.81) She has secondary hyperparathyrodism but her Calcium , Vit D and Phosphorus are within the goal Jun, Hyperkalemia (ICD-10 - E87.5) I have advised her to take low potassium diet and provide information about it. [facility] Other 11-10-2021 Evaluation note* Encounter Date Diagnosis Assessment Notes Treatment Notes Treatment Clinical Notes May, Obstructive sleep apnea (adult) (pediatric) (ICD-10 - G47.33) We reviewed her sleep study report, showing clear-cut obstructive sleep apnea (AHI just under 10.) Untreated sleep apnea does increase sleep fragmentation and medical complications including exacerbations of congestive heart failure. More concerning only, the patient substantial nocturnal hypoxia may strongly predispose to pulmonary hypertension, exacerbations of CHF, and persistent decreased ejection fraction. These issues were reviewed in detail and she expresses understanding. We also reviewed improvements in positive airway pressure treatment that may alter her original experience. She is willing to try treatment. Based on her substantial congestive heart failure with recent exacerbation, and laboratory titration is the standard of care. This also provides the advantage of giving many opportunities to try different masks, straps, and other configurations to maximize comfort. May, Idiopathic sleep related nonobstructive alveolar hypoventilation (ICD-10 - G47.34) She had very substantial nocturnal hypoxia, with 98% of her sleep time being in the hypoxic range and with a minimum to the minimum saturation of 81%. While I hope this will resolve with simple positive airway pressure treatment, there is the possibility that nocturnal oxygen may need to be bled into her positive airway pressure device. These issues were discussed. Patients with untreated apnea-associated nocturnal hypoxia have more heart attacks, strokes, and symptomatic pulmonary hypertension. This emphasizes importance of using treatment every night, all night. May, Chronic systolic congestive heart failure (ICD-10 - I50.22) There is a strong, bidirectional relationship between congestive heart failure and severe sleep apnea. Patients with CHF will have sleep apnea a full 60% of the time, and controlling sleep apnea can have a substantial effect on cardiac function after hypoxia and catecholamine overload caused by recurring apneas are controlled. May, Claustrophobia (ICD-10 - F40.240) We discussed ways to minimize claustrophobia responses when using positive airway pressure treatment. She will work to get the smallest possible mass, and recalls that she did nasal pillows in the past. Wake accommodation can also be helpful, and she has found that Covid masks are much easier to tolerate now than they were when the whole process first started May, BMI 50.0-59.9, adult (ICD-10 - Z68.43) Weight reduction is broadly beneficial and has particularly positive effects on sleep apnea. She has struggled with weight her entire life, but any movement in the right direction would be positive for her overall health and quality of life May, Other The diagnosis o f Sleep Apnea was reviewed in detail, and handout materials were provided. The patient expresses good understanding, We also reviewed the medical and accident risks associated with sleep apnea and excessive fatigue. The patient is advised to adhere to a proper sleep hygiene schedule and to assure adequate total sleep time; The patient was advised to continue efforts at progressive weight loss, including decreased overall caloric intake quantity and better food choices.The patient was advised to call or return any difficulties arise, including changes in symptoms and/or problems with treatment [facility] Other 10-05-2021 Evaluation note* Encounter Date Diagnosis Assessment Notes Treatment Notes Treatment Clinical Notes Apr, Hypertensive chronic kidney disease with stage 1 through stage 4 chronic kidney disease, or unspecified chronic kidney disease (ICD-10 - I12.9) BP is controlled and euvolemic. I have advised her to monitor weight and blood pressure at home and call office if she doesnot loose weight or if her blood pressure is still greater than 140/90 mmHg at home Apr, Chronic kidney disea se, stage III (moderate) (ICD-10 - N18.30) She has CKD due to HTN, possible diabetic nephropathy. Her serum creatinine fluctuates 1.9-2.2 mg/dl. Her renal function gets worse due to hemodynamic change in setting of diuresis. I have discussed with her the importance of good DM and HTN control to slow down the progression of disease. Her renal US was unremarkable Apr, Type 2 diabetes mellitus with diabetic chronic kidney disease (ICD-10 - E11.22) Blood sugars are within the acceptable range. I have advised her to continue to work with PCP for DM management. She has minimal proteinuria. I will continue the current dose of lisinopril. Apr, Edema leg (ICD-10 - R60.0) She appears to be euvolemic on exam. Continue Bumex 2 mg daily and lisinopril 40 mg daily. I have advised her to monitor her weight at home and if she gains 2 pounds in 24 hours or 5 pounds in a week then she should contact our office. Apr, Gout (ICD-10 - M10.9) She denies any recent gout flare. Continue current dose of Uloric Apr, Anemia in chronic kidney disease (ICD-10 - D63.1) Hemoglobin is within the goal. She takes oral iron supplement for iron deficiency anemia. Continue current iron supplement. Apr, Secondary hyperparathyroidism of renal origin (ICD-10 - N25.81) She has secondary hyperparathyrodism but her Calcium , Vit D and Phosphorus are within the goal Apr, Hyperkalemia (ICD-10 - E87.5) I have advised her to take low potassium diet and provide information about it. [facility] Other 02-05-2021 NotePatient Outreach ([facility]) LEIA AMAYA ([id number]) 1940 F Date Time Provider Department 08/12/20 WILLEM BARROSO During your visit today, we recorded the following information about you: Allergies As of Date: 08/12/2020 Noted Allergy Reaction ALLOPURINOL 09/20/2017 9 - Itching CONTRAST DYE (IODINE) 07/19/2015 4 - Hives DYE 08/24/2016 4 - Hives PENICILLINS 07/19/2015 4 - Hives Date Reviewed: 12/10/2018 Reviewed by: Megan Braden - Fully Assessed Order(s):SARS-COVID VACCINE 1ST DOSE APPT [[id number]] Order #: [id number] FUTURE Prescriptions as of 08/12/2020 Sig: LISINOPRIL 40 MG TABLET Take 40 mg by mouth once katya* ATORVASTATIN 20 MG TABLET Take 20 mg by mouth. LISINOPRIL 20 MG TABLET Take 20 mg by mouth. BUMETANIDE 2 MG TABLET Take 2 mg by mouth twice katya* SITAGLIPTIN 50 MG TABLET Take 50 mg by mouth once kayta* FEBUXOSTAT 40 MG TABLET Take 40 mg by mouth once katya* CALCIUM 600 + D ORAL Take by mouth. MULTIVITAMIN CAPSULE Take 1 capsule by mouth once * METOPROLOL TARTRATE 50 MG TAB* Take 50 mg by mouth twice jared* OMEPRAZOLE 20 MG CAPSULE,RAFAELA* Take 20 mg by mouth once katya* ROPINIROLE 1 MG TABLET Take 1 mg by mouth twice katya* Problem List As Of Date 08/12/2020 Noted Resolved Renal insufficiency [N28.9] 07/22/2015 Malaise and fatigue [R53.81, R53.83] 07/22/2015 Type 2 diabetes mellitus without complication (*07/22/2015 Anemia of chronic renal failure, stage 2 (mild)*08/05/2015 03/22/2017 MDS (myelodysplastic syndrome) (HCC) [D46.9] 08/05/2015 Myelodysplastic disease (HCC) [C94.6] 09/07/2015 Myelodysplasia, low grade (HCC) [D46.20] 09/07/2015 CKD (chronic kidney disease), stage III [N18.30]03/22/2017 Encounter Status:Closed by [employer] on 08/15/20[facility] Evaluation noteNo InformationNortFAST FELT Other Evaluation noteNo assessment information available [facility] Work Phone: Evaluation note* Diagnosis Onset Date Resolution Status Acute kidney injury acute Elevated troponin acute [facility] Work Phone: evaluation note* Diagnosis Onset Date Resolution Status Acute kidney injury acute Acute kidney injury superimposed on CKD acute CKD (chronic kidney disease) stage 3, GFR 30-59 ml/min acute Elevated troponin acute Fluid overload acute Hyperlipidemia acute [id number] acute Type 2 diabetes mellitus wit h diabetic chronic kidney disease acute [facility] Work Phone: evaluation note* Diagnosis Mixed hyperlipidemia ([facility]) Mixed hyperlipidemia [facility] Diagnosis Chronic gout without tophus, unspecified cause, unspecified site- Primary [facility] Diagnosis Onset Date Resolution Status Hypertension acute Idiopathic sleep related non obstructive alveolar hypoventilation acute BRANDO (obstructive sleep apnea) acute Type 2 diabetes mellitus wit h diabetic chronic kidney disease acute Anemia of renal disease acut e CKD (chronic kidney disease) stage 3, GFR 30-59 ml/min acute Edema acute Gout acute Hyperlipidemia acute Secondary hyperparathyroidism acute Type 2 diabetes mellitus wit h diabetic chronic kidney disease acute [facility] Work Phone: Evaluation note* Diagnosis Chronic diastolic heart failure ([facility])- Primary Chronic diastolic heart failure Heart failure with preserved left ventricular function (HFpEF) ([facility]) Essential hypertension Unspecified essential hypertension Shortness of breath Stage 3b chronic kidney disease (CKD) ([facility]) Lymphedema Other noninfectious lymphedema Mixed hyperlipidemia Pulmonary hypertension ([facility]) Other chronic pulmonary heart diseases [facility] Diagnosis Heart failure with preserved left ventricular function (HFpEF) ([facility] Primary Elevated liver enzymes Other nonspecific abnormal serum enzyme levels [facility] Diagnosis BMI 50.0-59.9, adult ([facility] Primary Shortness of breath Pulmonary hypertension ([facility]) Other chronic pulmonary heart diseases Valvular heart disease Endocarditis, valve unspecified, unspecified cause [facility] N[facility] - Reported* Type Description Date Medical History Chronic Kidney Disease Medical History Gout Medical History anemia Medical History edema Medical History sleep apnea Medical History degenerative disc disease Medical History restless leg syndrome Medical History allergic rhinitis Medical History Hiatal hernia Medical History septal defect Medical History hypertension Medical History heart disease Medical History diabetes mellitus Medical History BACK PAIN Medical History CONGESTIVE HEART FAILURE Medical History CHRONIC MUSCULOSKELETAL PAIN Medical History GERD Medical History HYPERCHOLESTEROLEMIA Medical History HYPERLIPIDEMIA Medical History LUMBAR DISC DISEASE Surgical History hysterectomy Surgical History cholecystectomy Surgical History knee arthroscopy Surgical History appendectomy Surgical History cataract surgery Surgical History bunionectomy Surgical History knee replacement Surgical History back surgery 11/2016 Surgical History HERNIA REPAIR Surgical History CARDIAC CATHETERIZATION Hospitalization History see above Hospitalization History Childbirth x3 Hospitalization History SHORTNESS OF BREATH, LOW OXYGEN LEVEL 03/15/2021-03/25/2021 [facility] Other [employer] general Narrative - Reported* Type Description Date Medical History Chronic Kidney Disease Medical History Gout Medical History anemia Medical History edema Medical History sleep apnea Medical History degenerative disc disease Medical History restless leg syndrome Medical History allergic rhinitis Medical History Hiatal hernia Medical History septal defect Medical History hypertension Medical History heart disease Medical History diabetes mellitus Medical History BACK PAIN Medical History CONGESTIVE HEART FAILURE Medical History CHRONIC MUSCULOSKELETAL PAIN Medical History GERD Medical History HYPERCHOLESTEROLEMIA Medical History HYPERLIPIDEMIA Medical History LUMBAR DISC DISEASE Surgical History hysterectomy Surgical History cholecystectomy Surgical History knee arthroscopy Surgical History appendectomy Surgical History cataract surgery Surgical History bunionectomy Surgical History knee replacement Surgical History back surgery 11/2016 Surgical History HERNIA REPAIR Surgical History CARDIAC CATHETERIZATION Hospitalization History see above Hospitalization History Childbirth x3 Hospitalization History SHORTNESS OF BREATH, LOW OXYGEN LEVEL 03/15/2021-03/25/[address] [facility] SUPERIM POSED ON CKD, FLUID OVERLOAD, CKD STAGE 3 05/03/2023 Hospitalization History [facility] ADMIS [facility] 04/22/2023 [facility] Other History general Narrative - Reported* Type Description Date Medical History Chronic Kidney Disease Medical History Gout Medical History anemia Medical History edema Medical History sleep apnea Medical History degenerative disc disease Medical History restless leg syndrome Medical History allergic rhinitis Medical History Hiatal hernia Medical History septal defect Medical History hypertension Medical History heart disease Medical History diabetes mellitus Medical History BACK PAIN Medical History CONGESTIVE HEART FAILURE Medical History CHRONIC MUSCULOSKELETAL PAIN Medical History GERD Medical History HYPERCHOLESTEROLEMIA Medical History HYPERLIPIDEMIA Medical History LUMBAR DISC DISEASE Medical History SHINGLES Surgical History hysterectomy Surgical History cholecystectomy Surgical History knee arthroscopy Surgical History appendectomy Surgical History cataract surgery Surgical History bunionectomy Surgical History knee replacement Surgical History back surgery 11/2016 Surgical History HERNIA REPAIR Surgical History CARDIAC CATHETERIZATION Hospitalization History see above Hospitalization History Childbirth x3 Hospitalization History SHORTNESS OF BREATH, LOW OXYGEN LEVEL 03/15/2021-03/25/[address] [facility] SUPER[facility] POSED ON CKD, FLUID OVERLOAD, CKD STAGE 3 05/03/2023 Hospitalization History [facility] ADMIS SILVANA 04/22/2023 [facility] Other InstructionsNot on filedocumented in this encounter [facility] SystemInstructionsNot on filedocumented in this encounter [facility] SystemInstructionsNot on filedocumented in this encounter [facility] [facility] Summary Purpose Family History Relationship Condition Age at Onset Recorded Date/T rukhsana father Malignant neoplasm of throat Unknown Diabetes mellitus Unknown Not Specified Pulmonary emphysema Unknown Congestive heart failure Unknown sister Diabetes mellitus Unknown Relationship Condition Age at Onset Recorded Date/T rukhsana father Malignant neoplasm of throat Unknown Diabetes mellitus Unknown mother Pulmonary emphysema Unknown Congestive heart failure Unknown sister Diabetes mellitus Unknown father Heart disease Unknown Hypertension Unknown Unknown mother Family history of emphysema Unknown Heart disease Unknown sister Heart disease Unknown Advance Directives Advance Directive Response Recorded Date/ Time Advance Directives No August 16, 2017 11:10am Advance Directive Response Recorded Date/ Time Advance Directives No August 16, 2017 10:10am Documents on File Type Date Recorded Patient Nurse Assistant Expl anation Advance Directives and Livin g Will 10/09/2019 2019-10-09 DNC Advance Directives and Livin g Will 10/06/2019 2019-09-22 DNR Documents on File Type Date Recorded Patient Nurse Assistant Expl anation DNR Physician Order 05/15/2023 10:54 AM DNR Physician Order 04/14/2021 2:02 PM DNR Physician Order 04/29/2020 11:14 AM Date Activated Date Inactivated Comments 04/22/2023 4:06 PM 04/25/2023 1:48 PM Date Activated Date Inactivated Comments 03/16/2021 11:38 AM 03/25/2021 6:37 PM Documents on File Type Date Recorded Patient Nurse Assistant Expl anation DNR Physician Order 05/15/2023 10:54 AM DNR Physician Order 04/14/2021 2:02 PM DNR Physician Order 04/29/2020 11:14 AM Date Activated Date Inactivated Comments 04/22/2023 4:06 PM 04/25/2023 1:48 PM Date Activated Date Inactivated Comments 03/16/2021 11:38 AM 03/25/2021 6:37 PM Chief Complaint and Reason for Visit Chief Complaint I12.9 Chief Complaint 1 year, blessing pat ient Chief Complaint N18.30 I12.9 E11.22 R60.0 M10.9 N25.81 E61.1 Sent by Reason for Visit Acute kidney injury Elevated troponin Chief Complaint N18.30 I12.9 E11.22 R60.0 M10.9 N25.81 E61.1 Sent by N18.30 N17.9 N18.9 I12.9 E11.22 R60.0 M10.9 N25.81 Reason for Visit Acute kidney injury Acute kidney injury superimposed on CKD CKD (chronic kidney disease) stage 3, GFR 30-59 ml/min Elevated troponin Fluid overload Hyperlipidemia [id number] Type 2 diabetes mellitus with diabetic chronic kidney disease Chief Complaint Sent by Renal 6 Wk F/U / Hosp F/U N18.30 N17.9 N18.9 I12.9 E11.22 R60.0 M10.9 N25.81 Chief Complaint n18.30 i12.9 e11.22 r60.0 m10.9 n25.81 e61.1 Chief Complaint N25.81 E61.1 R60.9 E 11.22 N18.30 E78.5 Chief Complaint N25.81 E61.1 R60.9 E 11.22 N18.30 E78.5 BRANDO/ ANNUAL Chief Complaint N25.81 E61.1 R60.9 E 11.22 N18.30 E78.5 BRANDO/ ANNUAL RENAL 4 MONTH F/U Reason for Visit Hypertension Idiopathic sleep related nonobstructive alveolar hypoventilation BRANDO (obstructive sleep apnea) Type 2 diabetes mellitus with diabetic chronic kidney disease Anemia of renal disease CKD (chronic kidney disease) stage 3, GFR 30-59 ml/min Edema Gout Hyperlipidemia Secondary hyperparathyroidism Type 2 diabetes mellitus with diabetic chronic kidney disease Reason for Referral Specialty Diagnoses / Procedures Referred By Contac t Referred To Contact Diagnoses Shortness of breath Pulmonary hypertension (CMS-HCC) Procedures Echo complete W/O contrast Fabricio Dickson MD [address] [place] [address] Referral ID Status Reason Start Date Expiration Date V isits Requested Visits Authorized [id number] Pending Review 04/10/2024 04/10/2025 1 1 Specialty Diagnoses / Procedures Referred By Riley sierra Referred To Contact Pulmonary Medicine Diagnoses Shortness of breath Fabricio Dickson MD [address] [place] [address] Zz Do Not Use [facility] [address] [place] [address] Referral ID Status Reason Start Date Expiration Date Visits Requested Visits Authorized [id number] Pending Review Specialty Services Required 04/10/2024 04/10/2025 1 1 Additional Source Comments INFORMATION SOURCE (unrecogn ized section and content) DATE CREATED AUTHOR 01/01/2018 [facility] DATE CREATED AUTHOR AUTHOR'S ORGANIZ ATION 06/24/2021 [facility] DATE CREATED AUTHOR AUTHOR'S ORGANIZ ATION 07/27/2021 [facility] Special[facility] DATE CREATED AUTHOR AUTHOR'S ORGANIZ ATION 07/31/2021 [facility] DATE CREATED AUTHOR AUTHOR'S ORGANIZ ATION 09/15/2023 [facility] DATE CREATED AUTHOR AUTHOR'S ORGANIZ ATION 12/22/2023 [facility] Specialists EPIC DATE CREATED AUTHOR AUTHOR'S ORGANIZ ATION 05/13/2024 [facility] DATE CREATED AUTHOR AUTHOR'S ORGANIZ ATION 05/23/2024 [facility] REASON FOR VISIT (unrecogniz ed section and content) Reason Comments Med Refill Reason Onset Date Comments Med Refill 08/14/2023 Reason Comments Follow-up EST PT F/U LABS AT F RE SCHED W/ PT L/S GRU 2021 PT IS SOB Reason Comments New Patient CT: 4PFT: 1 Echo: 05/12/2024 Shortness of Breath At rest, on exertion , occasionally at night Sleep Apnea On PAP therapyDME:MS C Specialty Diagnoses / Procedures Referred By Riley sierra Referred To Contact Pulmonary Medicine Diagnoses Shortness of breath Fabricio Dickson MD [address] [place] [address] Phone: tel: fax: [facility] [address] [place] [address] [place] [id number] Phone: tel: fax: Referral ID Status Reason Start Date Expiration Date Visits Requested Visits Authorized [id number] Pending Review Specialty Services Required 04/10/2024 04/10/2025 1 1 Care Teams (unrecognized sec tion and content) Team Status: Inactive Member Role Status Dates Bette Diaz MD Primary Care Provider, Attending Prov ider Active Team Status: Active Member Role Status Dates Bette Diaz MD Primary Care Provider Active Team Status: Active Member Role Status Dates Sondra Boswell MD Primary Care Provider Active Team Status: Inactive Member Role Status Dates Sil Oneill NP Attending Provider Active Sondra Boswell MD Primary Care Provider Active Team Status: Inactive Member Role Status Dates Sondra Boswell MD Primary Care Provider Active Bette Diaz MD Attending Provider Active Team Status: Active Member Role Status Dates Sondra Boswell MD Primary Care Provider Active Eliot Moctezuma DO Emergency Provider Active Magali Galindo MD Admit Provider, Attending Provider Active Team Status: Inactive Member Role Status Dates Sondra Boswell MD Primary Care Provider Active Bette Diaz MD Attending Provider Active Abundio Sauer DO Referring Provider Active Team Status: Inactive Member Role Status Dates Sondra Boswell MD Primary Care Provider Active Eliot Moctezuma DO Emergency Provider Active Magali Galindo MD Admit Provider Active Bette Diaz MD Other Provider Active Abundio Sauer DO Attending Provider Active Team Status: Inactive Member Role Status Dates Sondra Boswell MD Primary Care Provider Active Start: April End: May 06, 2023 Eliot Moctezuma DO Emergency Provider Active St art: May 05, 2023 End: May 06, 2023 Magali Galindo MD Admit Provider Active Start: May 05, 2023 End: May 06, 2023 Bette Diaz MD Other Provider Active Start: 2022 End: May 06, 2023 Abundio Sauer DO Attending Provider Active Start: May 05, 2023 End: May 06, 2023 Team Status: Inactive Member Role Status Dates Bette Diaz MD Attending Provider Active Start : May 14, 2023 End: May 14, 2023 Team Status: Inactive Member Role Status Dates Sondra Boswell MD Primary Care Provider Active Start: May End: May 14, 2023 Bette Diaz MD Attending Provider Active Start : May 14, 2023 End: May 14, 2023 Abundio Sauer DO Referring Provider Active Start: May 14, 2023 End: May 14, 2023 Team Status: Inactive Member Role Status Dates Bette Diaz MD Attending Provider Active Start : July 29, 2023 End: July 29, 2023 Team Status: Inactive Member Role Status Dates Bette Diaz MD Attending Provider Active Start : August 12, 2023 End: August 12, 2023 [employer] Teacher Relationship Specialty Start Date End Date Sondra Boswell MD [address] [place] [address] PCP - General Family Medicine 11/26/22 Sondra Boswell MD [address] [place] [address] PCP - ACO Reach 11/29/22 [employer] Teacher Relationship Specialty Start Date End Date Sondra Boswell MD [address] [place] [address] PCP - General Family Medicine 11/26/22 Sondra Boswell MD [address] [place], [place] [id number] PCP - ACO Reach 11/29/22 Team Status: Active Member Role Status Dates Sondra Boswell MD Primary Care Provide r Active Team Status: Inactive Member Role Status Dates Sondra Boswell MD Primary Care Provide r Active Start: January 14, 2024 End: January 14, 2024 Bette Diaz MD Attending Provider Active Start : January 14, 2024 End: January 14, 2024 Team Status: Inactive Member Role Status Dates Sil Oneill NP Attending Provider Active Start: January 21, 2024 End: January 21, 2024 Sondra Boswell MD Primary Care Provide r Active Start: January 21, 2024 End: January 21, 2024 Team Status: Active Member Role Status Dates Stone Ortega DO Primary Care Provider Active Team Status: Inactive Member Role Status Dates Bette Diaz MD Attending Provider Active Start : February 24, 2024 End: February 24, 2024 Stone Ortega DO Primary Care Provider Active Start: February 24, 2024 End: February 24, 2024 Stone Ortega DO PCP Active Start: February 24, 2024 End: February 24, 2024 [employer] Teacher Relationship Specialty Start Date End Date Stone Ortega DO [facility] [address] [facility] [place] [address] PCP - General 04/10/24 [employer] Teacher Relationship Specialty Start Date End Date Stone Ortega, DO [address] [facility] [place] [address] PCP - General 04/10/24 [employer] Teacher Relationship Specialty Start Date End Date Stone Ortega, DO [address] [facility] [place] [address] PCP - General 04/10/24 [employer] Teacher Relationship Specialty Start Date End Date Stone Ortega, DO [address] [facility] [place] [address] PCP - General 04/10/24 Goals (unrecognized section and content) Goals may be documented in a n alternate section FOR RECORDS PERTAINING TO PATIENTS WHO ARE OR HAVE BEEN ENROLLED IN A CHEMICAL DEPENDENCY/SUBSTANCEABUSE PROGRAM, SOME INFORMATION MAY BE OMITTED. This clinical summary was aggregated from multiple sources. Caution should be exercised in using it in the provision of clinical care. This summary normalizes information from multiple sources, and as a consequence, information in this document may materially change the coding, format and clinical context of patient data. In addition, data may be omitted in some cases. CLINICAL DECISIONS SHOULD BE BASED ON THE PRIMARY CLINICAL RECORDS. [facility] [employer] provides no warranty or guarantee of the accuracy or completeness of information in this document.
[2024-05-27 09:50] LABS: Estimated Average Glucose 146 mg/dL; Glycohemoglobin A1C 6.7 % (4.5-6.2)
[2024-05-27 09:51] LABS: Albumin Level 3.4 g/dL (3.4-5.0); Anion Gap 17.7; BUN Creatinine Ratio 22.7; Chloride 101 mmol/L (98-107); Estimated GFR (African America 28 (>=60 mL/min/1.73m^2); Estimated GFR (Non-African Ame 23 (>=60 mL/min/1.73m^2); Glucose 178 mg/dL (74-106); Phosphorus 3.9 mg/dL (2.6-4.7); Potassium 3.7 mmol/L (3.5-5.1); Sodium 140 mmol/L (136-145)
== END 2024-05-27 07:03 | disposition home or self-care (01) ==
LOC: LAB 07:02
PROVIDERS: PCP Family Medicine; Visit Provider Nurse Practitioner Adult Health
DX: R60.9 Edema, unspecified (principal); N18.30 Chronic kidney disease, stage 3 unspecified; I12.9 Hypertensive chronic kidney disease with stage 1 through stage 4 chronic kidney disease, or unspecified chronic kidney disease
CPT/HCPCS: 36415; 80069; 83036